=== PATIENT | female | born 1955 | race Caucasian/White ===

== ENCOUNTER 2023-05-19 21:03 | Inpatient (IN) | payer MEDICARE, SELFPAY ==
--- NOTE | ~2023-05-19 | FL_ITS ---
EXAMINATION: XR FLUOROSCOPY UPPER GI WITH AIR CLINICAL INFORMATION: Dysphagia, reflux COMPARISON: None TECHNIQUE: Fluoroscopic air contrast upper GI examination was performed utilizing standard techniques with thin and thick barium and effervescent granules. Numerous spot images were obtained. FINDINGS: Vagal stimulator incidentally noted. There are cholecystectomy clips present. Lateral cine images of the oropharynx and hypopharynx demonstrate premature spillage into the vallecula and pyriform sinuses with a delayed swallow mechanism. There is trace laryngeal penetration with thick barium. No tracheal penetration, glottic or subglottic aspiration identified. No nasopharyngeal reflux present. Hypopharyngeal structures appear normal without evidence of mass or diverticulum. There was no significant cricopharyngeal achalasia. Dual and single contrast images of the esophagus demonstrate patulous caliber, normal contour, and normal mucosal pattern. No evidence of stricture, mass, or ulcerations identified. Esophageal peristalsis is moderately disorganized. No evidence of hiatus hernia identified. No significant gastroesophageal reflux was seen during the course of the examination and on reflux views. Dual contrast and single contrast images of the stomach demonstrated a normal contour. Evaluation of the gastric mucosa is limited due to patient's inability and refusal to change body positions. The appears to be multiple areas of contrast pooling in the fundus and body the stomach that may represent small superficial aphthous ulcers. No obvious mass is present. Contrast freely passed into the gastric antrum and duodenal bulb without delay. Single and air-contrast images of the duodenal bulb demonstrate no abnormality. The duodenal sweep has a normal appearance, course, and mucosal fold appearance. The imaged proximal jejunum has a normal fold pattern and caliber. FLUOROSCOPY TIME: 2 minutes 11 seconds Number of Spot Images: 2 Number of Cine: 8 DOSE AREA PRODUCT: 1328 uGy-m2 (microgray-meter squared) FL/FL upper GI w Ba Swallow IMPRESSION: 1. Premature spillage into the vallecula and pyriform sinuses with delayed swallow mechanism. Ballooning of the hypopharynx. 2. Trace laryngeal penetration with thick barium. 3. Limited evaluation of the esophagus, however, peristalsis is disorganized. 4. Limited evaluation of the stomach. There appear to be multiple areas of contrast pooling in the fundus and body the stomach that may represent small superficial aphthous ulcers. Recommend correlation EGD. This procedure was performed by Carrillo Morillo PA-C, and supervised by Dr. Huston
[2023-05-19 21:25] VITALS: BP 123/57; PULSE 107; RESP 16; TEMP 36.3; O2SAT 95
[2023-05-19 22:00] VITALS: BMI 46.5
--- NOTE | 2023-05-19 23:41 | PC.NURSE ---
pt is hospital to hospital transfer from [facility]. on arrival pt has signed c-v pt has long standing psych hx and recently returned home from a rehab facility. pt had been at rehab for decreased mobility. pt states that she sought medical help at [facility] ed for she needed to have a lung,eye and dental transplant. pt states that she is suffering from sarcoidosis. pt is able to stand. unfortunately she is nonambulatory and states she is wheel chair bound. her affect is flat/withdrawn. she has delusions in regard to needing organ transplants. she is able to wiley purposefully. resp effort is regular unlabored. lungs cta. slightly tachycardic heart rate low 100s bpm. abdomen obese/soft. pt states has not has bm in 5 days but does not have constipation. incontinent of urine.
[2023-05-20 07:30] VITALS: BP 125/84; PULSE 90; RESP 16; TEMP 36.6; O2SAT 94
[2023-05-20 08:30] LABS: Creatinine Clr Calc Pharmacy 73.1; Estimated Glomerular Filt Rate > 60
[2023-05-20 08:33] LABS: Alanine Aminotransferase 12 U/L (0-31); Albumin Level 3.8 g/dL (3.5-5.0); Alkaline Phosphatase 112 U/L (39-117); Anion Gap 11 (12-20); Aspartate Amino Transferase 14 U/L (5-31); Bilirubin Total 0.3 mg/dL (0.0-1.0); Blood Urea Nitrogen 11 mg/dL (9-16); Calcium 9.2 mg/dL (8.4-10.2); Carbon Dioxide 23 mmol/L (22-29); Chloride 107 mmol/L (96-108); Cholesterol 149 mg/dL (<200); Creatinine Clr Calc Pharmacy 72.3; Estimated Glomerular Filt Rate > 60; Glucose Fasting 129 mg/dL (60-99); HDL Cholesterol 38 mg/dL (>40); LDL Cholesterol Calculated 78 mg/dL (<100); Potassium 4.1 mmol/L (3.3-5.1); Sodium 137 mmol/L (135-145); Total Protein 6.8 g/dL (6.5-8.0); Triglycerides 166 mg/dL (<150)
--- NOTE | 2023-05-20 09:10 | P.HPPS_ITS ---
[facility] Date of Service: 05/20/23 Chief Complaint: Schizophrenia Sources of Information: patient interviewed, chart reviewed and crisis/core team assessment reviewed HPI Subjective Notes: Macario Warning and Conditional Voluntary Narrative: The patient is a 67-year-old female , with a past history of schizophrenia. The patient was initially referred to another hospital since her reported exacerbation of psychotic symptoms elicited with paranoia, bizarre delusions and feelings that she is going to and needs to go to the hospital. Apparently the patient had a previous medical admission a few weeks ago, her medications were changed since she was sent to rehab for continuation of care. When she was brought back home he was extremely paranoid and delusional stating that she needs to get her lungs replaced and she was scared stating that she was going to . Her tried to calm her down but eventually he called 911 and she was rushed to the emergency room and assessed by crisis. She was transferring to this facility for psychiatric stabilization. On interview, the patient understood macario warning. She understood that she needed medical care and she was stating that she was feeling much better with some chronic back pain. She adamantly denies paranoia or feeling that she is going to get killed but she stated that she needs to have her back, lungs and replaced also she needs replacement of her eyes. The patient was able to contract for safety and she is willing to follow treatment in this facility. The patient was pleasant, cooperative and reported that the lidocaine patches help her in her back pain so we are ordering it now. We will try to gather more collateral information. Past Psychiatric History: According to the crisis assessment the patient has a lengthy history of schizophrenia and she was prior admissions into the hospital for decompensation. She was transfer with [facility] we will try to gather more information regarding prior treatments. Medical Evaluation Reviewed: Yes [facility] Medical History Neurostimulator device in situ Hypothyroidism Intellectual disability Schizoaffective disorder Dysphagia Type 2 diabetes mellitus History of pulmonary embolism Sarcoidosis (HFpEF) heart failure with preserved ejection fraction Epilepsy Family History: Denies Social History: The patient is , she has good social support provided by her . Substance History: Denies Trauma History: Refused to elaborate Diagnostics Vital Signs (24Hr): Vital Signs - 24 hr 05/19/23 21:25 Temperature 97.3 F Pulse Rate 107 H Respiratory Rate 16 Blood Pressure 123/57 L Pulse Oximetry 95 Oxygen Delivery Method Room Air BMI result Body Mass Index 46.5 Labs 05/20/23 07:52 Labs: Laboratory Results - last 48 hr 05/20/23 05/20/23 05/20/23 07:52 07:52 07:52 Sodium 137 Potassium 4.1 Chloride 107 Carbon Dioxide 23 Anion Gap 11 L BUN 11 Creatinine 0.84 0.83 Estim Creat Clear Calc 72.3 73.1 Estimated GFR > 60 Fasting Glucose Calcium Total Bilirubin AST ALT Alkaline Phosphatase Total Protein Albumin Triglycerides Cholesterol LDL Cholesterol, Calc HDL Cholesterol 05/20/23 07:52 Sodium Potassium Chloride Carbon Dioxide Anion Gap BUN Creatinine Estim Creat Clear Calc Estimated GFR > 60 Fasting Glucose 129 H Calcium 9.2 Total Bilirubin 0.3 AST 14 ALT 12 Alkaline Phosphatase 112 Total Protein 6.8 Albumin 3.8 Triglycerides 166 H Cholesterol 149 LDL Cholesterol, Calc 78 HDL Cholesterol 38 L Meds/Allergies Meds Home Medications ?Medication ?Instructions ?Recorded ?Confirmed ?Type clobazam 10 mg tablet 10 mg PO BID 05/19/23 05/19/23 History haloperidol 10 mg tablet 10 mg PO BID 05/19/23 05/19/23 History metformin 500 mg tablet,extended 500 mg PO DAILY 05/19/23 05/19/23 History release 24 hr risperidone 2 mg tablet 2 mg PO BID 05/19/23 05/19/23 History risperidone 3 mg tablet 3 mg PO BEDTIME 05/19/23 05/19/23 History sertraline 100 mg tablet 100 mg PO DAILY 05/19/23 05/19/23 History spironolactone 25 mg tablet 25 mg PO DAILY 05/19/23 05/19/23 History torsemide 20 mg tablet 60 mg PO 3XW 05/19/23 05/19/23 History Allergies Allergies Allergy/AdvReac Type Severity Reaction Status Date / Time ascorbic acid [Vitamin C] Allergy Unknown Unknown Verified 05/19/23 21:53 dexamethasone Allergy Unknown Verified 05/19/23 21:52 ibuprofen Allergy Unknown Verified 05/19/23 21:49 Penicillins Allergy Rash Verified 05/19/23 21:55 Mental Status Exam Mental Status Exam Patient Appearance: Appropriate (On hospital gowns) Patient Orientation: Person and Situation Level of Consciousness: Awake and Appropriate Patient Behavior: Guarded and Passive Mood Description: Withdrawn Affect Description: Constricted Patient Cognition Impaired: Yes Ability to Follow Directions: Good Speech Pattern: Clear Hallucinations: None Delusions: Present, Ideas of Reference and Bizarre Thought Process: Distracted and Slowed Thinking Thought Content: positive for [place] and positive for Poverty of Content Judgement: Poor Assessment & Plan Assessment & Plan (1) Schizophrenia: Status: Acute Code(s): F20.9 - Schizophrenia, unspecified Plan The patient is an elderly female with a past history of schizophrenia who recently had medication changes and she was referred from her home to the emergency room due to exacerbation of delusions and paranoia. The patient had been admitted in the hospital a few weeks ago and sent to rehab for continuation of care and after being discharged home she was severely psychotic. She was brought to the emergency room and started on Haldol. Plan 1. Gather collateral information. The patient is a very poor historian but she is able to verbalize her needs. 2. Continue with Haldol as prescribed. 3. 15 minutes checks since the patient is able to contract for safety. 4. The patient refused all her medications today but she was able to take a few medications for seizures with encouragement. Patient educated on: diagnosis Reason for continued inpatient stay Substantial Risk for: inability to function, rapid decompensation and med/psych decompensation Statement Statement: I have reviewed the history and physical and performed a pertinent examination on my patient. No changes have occurred unless specified. If the History and Physical was not performed prior to admission, the Hospitalist's service will be consulted for completing the admission physical. Time Spent With Patient Time: Total time managing care of this patient today __45__ minutes.
--- NOTE | 2023-05-20 09:13 | HO.PM.IMCN ---
History of Present Illness Data of Consult Service Date: 05/20/23 Requesting physician: Kelly Zimmerman Primary Care Provider: Trae SPENCER Reason for consult: admission H&P 67-year-old female with history of PE no longer on anticoagulation, type 2 diabetes, dysphagia, schizophrenia, epilepsy, neurostimulator in place, intellectual disability, heart failure preserved ejection fraction, hypothyroidism, and sarcoidosis admitted to Geriatric Psychiatry from [facility] with consult placed to hospitalist service for medical H and P. The patient is reporting that she is having her lungs, I, and feet transplanted. Very limited historian but denies any complaints. While on the unit, patient observed to be eating breakfast and coughing while eating. Currently on a regular diet. She reports her last seizure was 9 years ago. While [facility], hematology studies unremarkable, renal function baseline, lytes normal. UA negative. Unclear what medications patient is currently taking. States she is only taking haldol and zonegran however called pharamacy and reports zonegran discontinued in January. Review of Systems Review of Systems: General: No fevers, malaise, unintentional weight loss HEENT: No blurred vision, diplopia. No sore throat, nasal congestion, rhinorrhea, sinus pain, ear pain Cardiovascular: No chest pain, palpitations, or leg edema Respiratory: No shortness of breath, wheezing, cough GI: No abdominal pain, nausea, vomiting, diarrhea, constipation, melena, hematochezia : No dysuria, hematuria, increased urinary frequency, decreased urinary output MSK: No myalgia, back pain Neuro: No headaches, weakness, paresthesias Skin: No rashes or lesions [facility] Medical History (Updated 05/20/23 @ 09:34 by ROGELIO Shah) Neurostimulator device in situ Hypothyroidism Intellectual disability Schizoaffective disorder Dysphagia Type 2 diabetes mellitus History of pulmonary embolism Sarcoidosis (HFpEF) heart failure with preserved ejection fraction Epilepsy Social History Household Members: Spouse Housing: House Do you presently have visiting nurse or other home services: Yes Patient Tobacco Use Status: Never used Tobacco e-Cigarette/Vaping Use: Never Used Use of substances other than those prescribed or required for medical reasons: No Currently Displaying Signs/Symptoms of Drug Intoxication Withdrawal: No Any prior treatment program specific to substance use: No Have you been hit, kicked, punched, or otherwise hurt by someone within the past year? If so, by whom?: No Do you feel safe in your current relationship?: No Is there a partner from a previous relationship who is making you feel unsafe now?: No Are you made to feel afraid or neglected: No Advance Directives: No Advance Directives Information Provided: No Do you have thoughts of harming others: None Do you have a plan to hurt others: No Plan Recently lost weight without trying: Unsure How much weight loss: Unsure Nutrition Risks: No Nutritional Risk Patient : No : No Poor oral hygiene: No Meds Allergies Allergy/AdvReac Type Severity Reaction Status Date / Time ascorbic acid [Vitamin C] Allergy Unknown Unknown Verified 05/19/23 21:53 dexamethasone Allergy Unknown Verified 05/19/23 21:52 ibuprofen Allergy Unknown Verified 05/19/23 21:49 Penicillins Allergy Rash Verified 05/19/23 21:55 Active Medications: Current Medications Acetaminophen (Acetaminophen 325 Mg Tablet) 650 mg PO Q6H PRN PRN Reason: Headache/Pain Mild Scale (1-3) Al Hydroxide/Mg Hydroxide (Magnesium Hydrox/Alum Hydrox 30 Ml Oral.Susp) 30 ml PO Q6H PRN PRN Reason: Heartburn/Nausea Clobazam (Clobazam 10 Mg Tablet) 10 mg PO BID [facility] Last Admin: 05/20/23 08:37 Dose: Not Given Haloperidol (Haloperidol 5 Mg Tablet) 10 mg PO BID [facility] Last Admin: 05/20/23 08:38 Dose: Not Given Hydroxyzine HCl (Hydroxyzine Hcl 25 Mg Tablet) 25 mg PO Q6H PRN PRN Reason: Anxiety Magnesium Hydroxide (Milk Of Magnesia 30 Ml Oral.Susp) 30 ml PO DAILY PRN PRN Reason: Constipation Metformin HCl (Metformin Hcl Er 500 Mg Tab.Er.24h) 500 mg PO DAILY@0800 [facility] Last Admin: 05/20/23 08:37 Dose: Not Given Sertraline HCl (Sertraline Hcl 100 Mg Tablet) 100 mg PO DAILY [facility] Last Admin: 05/20/23 08:38 Dose: Not Given Spironolactone (Spironolactone 25 Mg Tablet) 25 mg PO DAILY [facility]; Protocol Last Admin: 05/20/23 08:38 Dose: Not Given Torsemide (Torsemide 20 Mg Tablet) 60 mg PO MoWeFr [facility]; Protocol Last Admin: 05/20/23 08:37 Dose: Not Given Trazodone HCl (Trazodone Hcl 50 Mg Tablet) 50 mg PO BEDTIME MRX1 PRN PRN Reason: Insomnia Home Medications ?Medication ?Instructions ?Recorded ?Confirmed ?Last Taken ?Type clobazam 10 mg tablet 10 mg PO BID 05/19/23 05/19/23 Unknown History haloperidol 10 mg tablet 10 mg PO BID 05/19/23 05/19/23 Unknown History metformin 500 mg tablet,extended 500 mg PO DAILY 05/19/23 05/19/23 Unknown History release 24 hr risperidone 2 mg tablet 2 mg PO BID 05/19/23 05/19/23 Unknown History risperidone 3 mg tablet 3 mg PO BEDTIME 05/19/23 05/19/23 Unknown History sertraline 100 mg tablet 100 mg PO DAILY 05/19/23 05/19/23 Unknown History spironolactone 25 mg tablet 25 mg PO DAILY 05/19/23 05/19/23 Unknown History torsemide 20 mg tablet 60 mg PO 3XW 05/19/23 05/19/23 Unknown History Physical Exam Vital Signs and Narrative: Vital Signs: Last Vital Signs Temp 97.3 F 05/19/23 21:25 Pulse 107 H 05/19/23 21:25 Resp 16 05/19/23 21:25 BP 123/57 L 05/19/23 21:25 Pulse Ox 95 05/19/23 21:25 O2 Del Method Room Air 05/19/23 21:25 BMI result Body Mass Index 46.5 Constitutional - Awake and Alert, No apparent distress Eyes - PERRLA, EOMI Cardiovascular - S1S2, RRR, No edema Respiratory - Normal lung expansion, Normal respiratory effort, No respiratory distress, CTA bilaterally Gastrointestinal - NT / ND; +BS; No rebound or guarding Extremities - no calf tenderness bilaterally, no swelling Musculoskeletal - Normal inspection, normal ROM Skin - Warm/Dry Neurological - Alert & oriented x3, CN II-XII in tact, 5/5 strength BUE and BLE Psychological - Appropriate affect Results Labs 05/20/23 07:52 Labs: Laboratory Results - last 24 hr 05/20/23 05/20/23 05/20/23 07:52 07:52 07:52 Anion Gap 11 L Estim Creat Clear Calc 72.3 73.1 Estimated GFR > 60 > 60 Fasting Glucose 129 H Calcium 9.2 Total Bilirubin 0.3 AST 14 ALT 12 Alkaline Phosphatase 112 Total Protein 6.8 Albumin 3.8 Triglycerides 166 H Cholesterol 149 LDL Cholesterol, Calc 78 HDL Cholesterol 38 L Assessment and Plan (1) Routine medical exam: Status: Acute Plan 67-year-old female with history of PE no longer on anticoagulation, type 2 diabetes, dysphagia, schizophrenia, epilepsy, neurostimulator in place, intellectual disability, heart failure preserved ejection fraction, hypothyroidism, and sarcoidosis admitted to Geriatric Psychiatry from [facility] with consult placed to hospitalist service for medical H and P. It is unclear what medications patient has been compliant with. Call placed to patient's pharmacy who reports Zonegran for patient's epilepsy was last filled in January but appears to be an activated. Also has not picked up levothyroxine since October. Would recommend reaching out to family to confirm home med list to ensure patient is not missing doses of needed medications. # mood disorder/psychosis -plan for Psychiatry # [id number] type 2 diabetes-without hyperglycemia -recommend checking fasting glucose daily -hemoglobin A1c pending -continue metformin -POC glucose, diabetic diet if patient agreeable # epilepsy -patient reports taking sonogram. Please confirm dosing with patient family and resume medication as appropriate -last seizure 9 years ago # hypothyroidism -reportedly has not filled levothyroxine 75 mcg since October. Check TSH with reflex T4 # heart failure preserved ejection fraction -euvolemic appearing on exam -continue spironolactone and torsemide # sarcoidosis -not on steroids # history of PE -no longer on anticoagulation # dysphagia -patient witnessed to be coughing during breakfast, diet changed to chopped pending [employer] evaluation which is ordered Thank you for allowing me to participate in this consult. Signing off at this time. Please do not hesitate to call for further questions.
[2023-05-20 10:29] LABS: TSH reflex Free T4 6.93 uIU/mL (0.32-4.0)
[2023-05-20 11:22] LABS: Free T4 (Free Thyroxine) 0.78 ng/dL (0.71-1.85)
[2023-05-20] MEDS: Zonisamide 100 MG CAPSULE 200 MG PO ×2 (15:12→20:09)
--- NOTE | 2023-05-20 17:10 | MHC.SL.SWA ---
Risk of Aspiration Due to: Neurological Condition Reduced Cognition Dysphasia Diet Status: NO CHANGE, MANAGER MINING to follow Liquid Consistency and Strategies for Safe Swallow: Liquid Intake Recommendation: Thin Liquid Intake Strategies: Small Sips Solid Food Consistency: Dietary Recommendations: Chopped/Advanced (NDD3) Additional Modifications to Solid Foods: Moisten food in sauce/gravy Oral Medication Intake: Whole with Puree/liquid Please contact the pharmacy regarding appropriate crushable or liquid drug formulations that are available whenever modified delivery is recommended. Compensatory Strategies and Precautions to be Taken for Safe Swallow: Sitting Upright (90 deg) Small Bites and Sips Alternate Liquids/Solids Rate of Ingestion Change Avoid Specific Foods Supervision While Eating and Drinking for Safe Swallow: Total Supervision (1:1) Foods to Avoid: Avoid dry and tough to chew foods Swallowing Recommended Treatments: Compens. Strategy Educat. Recommendation for Speech: Inpatient Speech Therapy Comment: Recommend patient continue w/ chopped/advanced solids (NDD3) and thin liquids. Recommend pills whole w/ liquid/puree. Recommend supervision during meals. RN notified on floor. MANAGER MINING to continue to follow. Braid Pattern Setter Clinican/Clinical Fellow: No Supervisory Statement: I have reviewed and agree with the student/clinical fellow's documentation: Speech Language Pathologist: Pili Field M.A., [facility]-MANAGER MINING
[2023-05-20 18:00] VITALS: BP 165/70; PULSE 93; RESP 18; TEMP 36.4; O2SAT 97
[2023-05-20] MEDS: Lidocaine 4 % Patch ADH..PATCH 1 PATCH TRANSDERMA (18:19)
[2023-05-20] MEDS: Acetaminophen 325 MG TABLET 650 MG PO (20:10)
[2023-05-21] MEDS: Acetaminophen 325 MG TABLET 650 MG PO ×2 (03:40→10:03)
[2023-05-21 07:00] VITALS: BMI 45.7
[2023-05-21] MEDS: Zonisamide 100 MG CAPSULE 200 MG PO ×3 (09:14→21:00)
--- NOTE | 2023-05-21 15:17 | HO.PSYCHPN ---
Subjective Subjective Date of Service: 05/21/23 Reason For Visit: Schizophrenia Subjective Notes: Conditional Voluntary Interim History: The nursing staff reported the patient has refused her Haldol and other medications. According to the chart, her is her legal guardian and we will try to contact him soon. On interview the patient reports that she only takes antiseizure medication she has refused to take any medications. She looks internally preoccupied with thought blocking. Mental Status Exam Mental Status Exam Patient Appearance: Unkempt Patient Orientation: Person Level of Consciousness: Awake Patient Behavior: Guarded and Passive Mood Description: Withdrawn Affect Description: Blunted Patient Cognition Impaired: Yes Ability to Follow Directions: Good Speech Pattern: Clear Hallucinations: None Delusions: Paranoid Ideation and Ideas of Reference Thought Process: Distracted and Slowed Thinking Thought Content: positive for Thought Blocking Judgement: Poor Diagnostics Vital Signs (24Hr): Vital Signs - 24 hr 05/20/23 18:00 05/21/23 09:11 Temperature 97.5 F Pulse Rate 93 Respiratory Rate 18 Blood Pressure 165/70 H Pulse Oximetry 97 Oxygen Delivery Method Room Air Room Air BMI result Body Mass Index 45.7 Labs 05/20/23 07:52 Labs: Laboratory Results - last 48 hr 05/20/23 05/20/23 05/20/23 07:52 07:52 07:52 Sodium 137 Potassium 4.1 Chloride 107 Carbon Dioxide 23 Anion Gap 11 L BUN 11 Creatinine 0.84 0.83 Estim Creat Clear Calc 72.3 73.1 Estimated GFR > 60 Fasting Glucose Calcium Total Bilirubin AST ALT Alkaline Phosphatase Total Protein Albumin Triglycerides Cholesterol LDL Cholesterol, Calc HDL Cholesterol TSH Free T4 05/20/23 07:52 Sodium Potassium Chloride Carbon Dioxide Anion Gap BUN Creatinine Estim Creat Clear Calc Estimated GFR > 60 Fasting Glucose 129 H Calcium 9.2 Total Bilirubin 0.3 AST 14 ALT 12 Alkaline Phosphatase 112 Total Protein 6.8 Albumin 3.8 Triglycerides 166 H Cholesterol 149 LDL Cholesterol, Calc 78 HDL Cholesterol 38 L TSH 6.93 H Free T4 0.78 Medications Medications Current Medications Acetaminophen (Acetaminophen 325 Mg Tablet) 650 mg PO Q6H PRN PRN Reason: Headache/Pain Mild Scale (1-3) Last Admin: 05/21/23 10:03 Dose: 650 mg Al Hydroxide/Mg Hydroxide (Magnesium Hydrox/Alum Hydrox 30 Ml Oral.Susp) 30 ml PO Q6H PRN PRN Reason: Heartburn/Nausea Clobazam (Clobazam 10 Mg Tablet) 10 mg PO BID [facility] Last Admin: 05/21/23 09:16 Dose: Not Given Haloperidol (Haloperidol 5 Mg Tablet) 10 mg PO BID [facility] Last Admin: 05/21/23 09:16 Dose: Not Given Hydroxyzine HCl (Hydroxyzine Hcl 25 Mg Tablet) 25 mg PO Q6H PRN PRN Reason: Anxiety Levothyroxine Sodium (Levothyroxine Sodium 75 Mcg Tablet) 75 mcg PO DAILY@0600 [facility] Last Admin: 05/21/23 06:32 Dose: Not Given Lidocaine (Lidocaine 4 % Patch Adh..Patch) 1 patch TRANSDERMA DAILY [facility]; Protocol Magnesium Hydroxide (Milk Of Magnesia 30 Ml Oral.Susp) 30 ml PO DAILY PRN PRN Reason: Constipation Metformin HCl (Metformin Hcl Er 500 Mg Tab.Er.24h) 500 mg PO DAILY@0800 [facility] Last Admin: 05/21/23 09:15 Dose: Not Given Sertraline HCl (Sertraline Hcl 100 Mg Tablet) 100 mg PO DAILY [facility] Last Admin: 05/21/23 09:16 Dose: Not Given Spironolactone (Spironolactone 25 Mg Tablet) 25 mg PO DAILY [facility]; Protocol Last Admin: 05/21/23 09:16 Dose: Not Given Torsemide (Torsemide 20 Mg Tablet) 60 mg PO MoWeFr [facility]; Protocol Last Admin: 05/20/23 08:37 Dose: Not Given Trazodone HCl (Trazodone Hcl 50 Mg Tablet) 50 mg PO BEDTIME MRX1 PRN PRN Reason: Insomnia Zonisamide (Zonisamide 100 Mg Capsule) 200 mg PO TID [facility] Last Admin: 05/21/23 15:03 Dose: 200 mg Allergies Allergies Allergy/AdvReac Type Severity Reaction Status Date / Time ascorbic acid [Vitamin C] Allergy Unknown Unknown Verified 05/19/23 21:53 dexamethasone Allergy Unknown Verified 05/19/23 21:52 ibuprofen Allergy Unknown Verified 05/19/23 21:49 Penicillins Allergy Rash Verified 05/19/23 21:55 Assessment & Plan Assessment & Plan (1) Schizophrenia: Status: Acute Code(s): F20.9 - Schizophrenia, unspecified Plan The patient is an elderly female with a past history of schizophrenia who recently had medication changes and she was referred from her home to the emergency room due to exacerbation of delusions and paranoia. The patient had been admitted in the hospital a few weeks ago and sent to rehab for continuation of care and after being discharged home she was severely psychotic. She was brought to the emergency room and started on Haldol. Plan 1. Gather collateral information. The patient is a very poor historian but she is able to verbalize her needs. 2. Continue with Haldol as prescribed. 3. 15 minutes checks since the patient is able to contract for safety. 4. The patient refused all her medications today but she was able to take a few medications for seizures with encouragement. Reason for continued inpatient stay Substantial Risk for: inability to function, rapid decompensation and med/psych decompensation Time Spent With Patient Time: Total time managing care of this patient today __20__ minutes.
--- NOTE | 2023-05-21 16:53 | MHC.SL.SWA ---
Speech Pathologist Impression: Risk of Aspiration Due to: Neurological Condition Reduced Cognition Dysphasia Diet Status: Recommend continue on Chopped/Advanced with thin liquids, pills whole with liquid. D/c Speech/Language/Dysphagia treatment. Liquid Consistency and Strategies for Safe Swallow: Liquid Intake Recommendation: Thin Liquid Intake Strategies: Small Sips Solid Food Consistency: Dietary Recommendations: Chopped/Advanced (NDD3) Additional Modifications to Solid Foods: Moisten food in sauce/gravy Oral Medication Intake: Whole with Puree Please contact the pharmacy regarding appropriate crushable or liquid drug formulations that are available whenever modified delivery is recommended. Compensatory Strategies and Precautions to be Taken for Safe Swallow: Sitting Upright (90 deg) Liquids from Cup Small Bites and Sips Rate of Ingestion Change Supervision While Eating and Drinking for Safe Swallow: Intermittent Supervision Foods to Avoid: Avoid dry and tough to chew foods Swallowing Recommended Treatments: Compens. Strategy Educat. Recommendation for Speech: Inpatient Speech Therapy Comment: Patient was observed at dinner this evening, with a tray of chopped/advanced foods and thin liquids. Patient is able to independently feed self, and at this observations was taking fork full bites of chopped pasta and sauces, orally managing this consistency well, and producing a timely swallow. Patient periodically between bites of food was noted to grind teeth. On taking sips of liquid from cup with sippy lid, patient again took fairly large sips, but orally managed the bolus well and produced a timely swallow with no clinical signs of aspiration. Patient noted by nursing staff previously to eat quickly. At this observation, patient appeared intent upon her meal, but was taking her food and drink at a reasonable pace with no clinical signs of aspiration. Current diet of Chopped Advanced with thin liquids appears to be the safest and least restrictive diet for this patient at this time. Recommend continue on this diet, with no further [facility] T[employer]ER service needed at this time. Please re-contact if any additional concerns arise. Frequency/Duration: Date Range for Service Req: Timeline to reassess: Computer Processing Scheduler Clinican/Clinical Fellow: No Supervisory Statement: I have reviewed and agree with the student/clinical fellow's documentation: N/A Speech Language Pathologist: Patricia Ko M.A., [facility]
[2023-05-21 20:58] VITALS: BP 127/55; PULSE 101; RESP 18; TEMP 36; O2SAT 96
[2023-05-21] MEDS: Milk of Magnesia 30 ML ORAL.SUSP PO (21:10)
[2023-05-22 08:00] VITALS: BP 133/70; PULSE 100; RESP 18; TEMP 36.8; O2SAT 95
[2023-05-22] MEDS: Zonisamide 100 MG CAPSULE 200 MG PO ×3 (08:08→20:29)
[2023-05-22] MEDS: Levothyroxine Sodium 75 MCG TABLET PO (08:08)
[2023-05-22] MEDS: Lidocaine 4 % Patch ADH..PATCH 1 PATCH TRANSDERMA (08:09)
--- NOTE | 2023-05-22 13:13 | P.PNPSI_ITS ---
Subjective Subjective Date of Service: 05/22/23 Reason For Visit: Schizophrenia Subjective Notes: Sommers Order and Conditional Voluntary Healthcare Proxy: Yes Guardianship: Yes Interim History: The nursing staff reported the patient had been refusing her antipsychotics only taking antiseizure medications. She was seen flat eating in her bed internally preoccupied, responding to internal stimuli. Today the foster care social worker was able to contact her who is the guardian and the patient has a treatment over objection court order and today we got a copy of that. On interview the patient reported that she wants to go back home but I explained her that she has not taking her medications. I explained her that she has a court order and we are going to put backup medications if she refuses. Mental Status Exam Mental Status Exam Patient Appearance: Disheveled Patient Orientation: Person Level of Consciousness: Disoriented and Obtunded Patient Behavior: Guarded and Passive Mood Description: Withdrawn Affect Description: Blunted Patient Cognition Impaired: Yes Ability to Follow Directions: Poor Speech Pattern: Impoverished and Monotone Hallucinations: None Delusions: Paranoid Ideation and Ideas of Reference Thought Process: Illogical and Slowed Thinking Thought Content: positive for [place], positive for Poverty of Content and positive for Thought Blocking Judgement: Poor Diagnostics Vital Signs (24Hr): Vital Signs - 24 hr 05/21/23 20:58 05/22/23 08:00 Temperature 96.8 F 98.2 F Pulse Rate 101 H 100 Respiratory Rate 18 18 Blood Pressure 127/55 L 133/70 Pulse Oximetry 96 95 Oxygen Delivery Method Room Air Room Air BMI result Body Mass Index 45.7 Labs 05/20/23 07:52 Medications Medications Current Medications Acetaminophen (Acetaminophen 325 Mg Tablet) 650 mg PO Q6H PRN PRN Reason: Headache/Pain Mild Scale (1-3) Last Admin: 05/21/23 10:03 Dose: 650 mg Al Hydroxide/Mg Hydroxide (Magnesium Hydrox/Alum Hydrox 30 Ml Oral.Susp) 30 ml PO Q6H PRN PRN Reason: Heartburn/Nausea Clobazam (Clobazam 10 Mg Tablet) 10 mg PO BID [facility] BEDS AT [facility] Last Admin: 05/22/23 08:11 Dose: Not Given Haloperidol (Haloperidol 5 Mg Tablet) 10 mg PO BID [facility]CLUDE 234 BEDS AT THE [facility] Last Admin: 05/22/23 08:10 Dose: Not Given Haloperidol Lactate (Haloperidol Lactate 5 Mg/Ml Vial) 10 mg IM BID PRN PRN Reason: refusal of PO Hydroxyzine HCl (Hydroxyzine Hcl 25 Mg Tablet) 25 mg PO Q6H PRN PRN Reason: Anxiety Levothyroxine Sodium (Levothyroxine Sodium 75 Mcg Tablet) 75 mcg PO DAILY@0600 [facility] 234 BEDS AT THE [facility] Last Admin: 05/22/23 08:08 Dose: 75 mcg Lidocaine (Lidocaine 4 % Patch Adh..Patch) 1 patch TRANSDERMA DAILY [facility]CLUDE 234 BEDS AT THE [facility]; Protocol Last Admin: 05/22/23 08:09 Dose: 1 patch Magnesium Hydroxide (Milk Of Magnesia 30 Ml Oral.Susp) 30 ml PO DAILY PRN PRN Reason: Constipation Last Admin: 05/21/23 21:10 Dose: 30 ml Metformin HCl (Metformin Hcl Er 500 Mg Tab.Er.24h) 500 mg PO DAILY@0800 [facility]S [facility]CLUDE 234 BEDS AT THE [facility] Last Admin: 05/22/23 08:13 Dose: Not Given Sertraline HCl (Sertraline Hcl 100 Mg Tablet) 100 mg PO DAILY [facility]S [facility]CLUDE 234 BEDS AT THE [facility] Last Admin: 05/22/23 08:12 Dose: Not Given Spironolactone (Spironolactone 25 Mg Tablet) 25 mg PO DAILY [facility]S [facility]CLUDE 234 BEDS AT THE [facility]; Protocol Last Admin: 05/22/23 08:12 Dose: Not Given Torsemide (Torsemide 20 Mg Tablet) 60 mg PO MoWeFr COUNTS INCLUDE 234 BEDS AT THE [facility]; Protocol Last Admin: 05/22/23 08:12 Dose: Not Given Trazodone HCl (Trazodone Hcl 50 Mg Tablet) 50 mg PO BEDTIME MRX1 PRN PRN Reason: Insomnia Zonisamide (Zonisamide 100 Mg Capsule) 200 mg PO TID [facility]CLUDE 234 BEDS AT THE [facility] Last Admin: 05/22/23 08:08 Dose: 200 mg Allergies Allergies Allergy/AdvReac Type Severity Reaction Status Date / Time ascorbic acid [Vitamin C] Allergy Unknown Unknown Verified 05/19/23 21:53 dexamethasone Allergy Unknown Verified 05/19/23 21:52 ibuprofen Allergy Unknown Verified 05/19/23 21:49 Penicillins Allergy Rash Verified 05/19/23 21:55 Assessment & Plan Assessment & Plan (1) Schizophrenia: Status: Acute Code(s): F20.9 - Schizophrenia, unspecified Plan The patient is an elderly female with a past history of schizophrenia who recently had medication changes and she was referred from her home to the emergency room due to exacerbation of delusions and paranoia. The patient had been admitted in the hospital a few weeks ago and sent to rehab for continuation of care and after being discharged home she was severely psychotic. She was brought to the emergency room and started on Haldol. Plan 1. Gather collateral information. The patient is a very poor historian but she is able to verbalize her needs. 2. Continue with Haldol as prescribed. 3. 15 minutes checks since the patient is able to contract for safety. 4. The patient refused all her medications today but she was able to take a few medications for seizures with encouragement. 5. Haldol with backup IM as per court order was ordered today. Reason for continued inpatient stay Substantial Risk for: inability to function, rapid decompensation and med/psych decompensation Time Spent With Patient Time: Total time managing care of this patient today __20__ minutes.
[2023-05-22 18:00] VITALS: BP 142/69; PULSE 108; RESP 18; TEMP 36.1; O2SAT 98
[2023-05-22 21:00] VITALS: RESP 16
[2023-05-23] MEDS: Acetaminophen 325 MG TABLET 650 MG PO (03:26)
[2023-05-23 08:00] VITALS: BP 136/66; PULSE 99; RESP 18; TEMP 36.6; O2SAT 96
[2023-05-23] MEDS: Zonisamide 100 MG CAPSULE 200 MG PO ×3 (08:52→20:16)
[2023-05-23] MEDS: HaloperidoL 5 MG TABLET 10 MG PO (09:44)
[2023-05-23] MEDS: Lidocaine 4 % Patch ADH..PATCH 1 PATCH TRANSDERMA (09:51)
--- NOTE | 2023-05-23 11:41 | P.PNPSI_ITS ---
Subjective Subjective Date of Service: 05/23/23 Reason For Visit: Schizophrenia Interim History: Met with patient. Discussed with Nursing. Has been refusing most medications. Morgan's order in place. Educated pt ref lee order. Sleeping well. No SI or HI evident. Medication Compliance: Intermittent Side effects from medications: No Attending Groups: Intermittent Review of Systems Acute medical concerns: No Mental Status Exam Mental Status Exam Patient Appearance: Disheveled Patient Orientation: Person Level of Consciousness: Disoriented and Obtunded Patient Behavior: Guarded and Passive Mood Description: Withdrawn Affect Description: Blunted Patient Cognition Impaired: Yes Ability to Follow Directions: Poor Speech Pattern: Impoverished and Monotone Hallucinations: None Delusions: Paranoid Ideation and Ideas of Reference Thought Process: Illogical and Slowed Thinking Thought Content: positive for [place], positive for Poverty of Content and positive for Thought Blocking Judgement: Poor Diagnostics Vital Signs (24Hr): Vital Signs - 24 hr 05/22/23 18:00 05/22/23 21:00 Temperature 96.9 F Pulse Rate 108 H Respiratory Rate 18 16 Blood Pressure 142/69 H Pulse Oximetry 18 L Oxygen Delivery Method Room Air BMI result Body Mass Index 45.7 Labs 05/20/23 07:52 Medications Medications Current Medications Acetaminophen (Acetaminophen 325 Mg Tablet) 650 mg PO Q6H PRN PRN Reason: Headache/Pain Mild Scale (1-3) Last Admin: 05/23/23 03:26 Dose: 650 mg Clobazam (Clobazam 10 Mg Tablet) 10 mg PO BID [facility] Last Admin: 05/23/23 09:16 Dose: Not Given Haloperidol (Haloperidol 5 Mg Tablet) 10 mg PO BID [facility] Last Admin: 05/23/23 09:44 Dose: 10 mg Haloperidol Lactate (Haloperidol Lactate 5 Mg/Ml Vial) 10 mg IM BID PRN PRN Reason: refusal of PO Hydroxyzine HCl (Hydroxyzine Hcl 25 Mg Tablet) 25 mg PO Q6H PRN PRN Reason: Anxiety Levothyroxine Sodium (Levothyroxine Sodium 75 Mcg Tablet) 75 mcg PO DAILY@0600 [facility] Last Admin: 05/22/23 08:08 Dose: 75 mcg Lidocaine (Lidocaine 4 % Patch Adh..Patch) 1 patch TRANSDERMA DAILY [facility]; Protocol Last Admin: 05/23/23 09:51 Dose: 1 patch Magnesium Hydroxide (Milk Of Magnesia 30 Ml Oral.Susp) 30 ml PO DAILY PRN PRN Reason: Constipation Last Admin: 05/21/23 21:10 Dose: 30 ml Metformin HCl (Metformin Hcl Er 500 Mg Tab.Er.24h) 500 mg PO DAILY@0800 [facility] Last Admin: 05/23/23 09:15 Dose: Not Given Sertraline HCl (Sertraline Hcl 100 Mg Tablet) 100 mg PO DAILY [facility] Last Admin: 05/23/23 08:56 Dose: Not Given Spironolactone (Spironolactone 25 Mg Tablet) 25 mg PO DAILY [facility]; Protocol Last Admin: 05/23/23 08:56 Dose: Not Given Torsemide (Torsemide 20 Mg Tablet) 60 mg PO MoWeFr [facility]; Protocol Last Admin: 05/22/23 08:12 Dose: Not Given Trazodone HCl (Trazodone Hcl 50 Mg Tablet) 50 mg PO BEDTIME MRX1 PRN PRN Reason: Insomnia Zonisamide (Zonisamide 100 Mg Capsule) 200 mg PO TID [facility] Last Admin: 05/23/23 08:52 Dose: 200 mg Allergies Allergies Allergy/AdvReac Type Severity Reaction Status Date / Time ascorbic acid [Vitamin C] Allergy Unknown Unknown Verified 05/19/23 21:53 dexamethasone Allergy Unknown Verified 05/19/23 21:52 ibuprofen Allergy Unknown Verified 05/19/23 21:49 Penicillins Allergy Rash Verified 05/19/23 21:55 Assessment & Plan Assessment & Plan (1) Schizophrenia: Status: Acute Code(s): F20.9 - Schizophrenia, unspecified Plan The patient is an elderly female with a past history of schizophrenia who recently had medication changes and she was referred from her home to the emergency room due to exacerbation of delusions and paranoia. The patient had been admitted in the hospital a few weeks ago and sent to rehab for continuation of care and after being discharged home she was severely psychotic. She was brought to the emergency room and started on Haldol. Plan 1. Gather collateral information. The patient is a very poor historian but she is able to verbalize her needs. 2. Continue with Haldol as prescribed. 3. 15 minutes checks since the patient is able to contract for safety. 4. The patient refused all her medications today but she was able to take a few medications for seizures with encouragement. 5. Haldol with backup IM as per court order was ordered today. 05/22: no changes- give lee order medications. Pt educated on process for same. Reason for continued inpatient stay Substantial Risk for: inability to function Time Spent With Patient Time: Total time managing care of this patient today ____ minutes.
[2023-05-23 13:30] VITALS: BP 145/65; PULSE 94; RESP 96; TEMP 36.4; O2SAT 96
[2023-05-23 18:00] VITALS: BP 142/63; PULSE 105; RESP 16; TEMP 36.4; O2SAT 95
[2023-05-23] MEDS: Haloperidol Lactate 5 MG/ML VIAL 10 MG IM (20:20)
--- NOTE | 2023-05-23 21:39 | PC.NURSE ---
2040- pt seated in the milieu. despite great explanation of natalie order, she is refusing to take po haldol. she is grinding her teeth and anxious. she states that since taking the haldol earlier today she feels worst. pt states that she will take the IM haldol vs po. right arm placed in flexed position and haldol administered into right deltoid. pt was compliant for the injection. she was offered privacy for the injection but declined.
[2023-05-23 21:55] VITALS: BP 120/71; PULSE 134; RESP 16; TEMP 36.5; O2SAT 98
[2023-05-23 22:00] VITALS: BP 130/64; PULSE 117; RESP 16; O2SAT 97
[2023-05-23] MEDS: Benztropine Mesylate 1 MG TABLET 2 MG PO (22:20)
--- NOTE | 2023-05-23 22:38 | PC.NURSE ---
at 2155 a CELLAR PUMPER was implemented for concerns of a possible EPS REACTION- please note the following which was imparted to responding CELLAR PUMPER 1. bed exit alarm sounded and responding staff found pt in a seated position sitting on her sheet and blanket 2. pt is extremely anxious and states she feels like her airway is closing off 3. vital signs 97.7 p 132 bpm rr 24 sa02 98% b/p 120/71 4. concerns for possible EPS reaction r/t haldol 10 mg po earlier in the day and haldol 10 mg im approximately 90 minutes ago per lee order. 5. pt returned to bed with 2 assists and placed in high fowlers position. dr pizano contacted as per dr wilson and the previous documentation reviewed with dr pizano- plan 1. cogentin 2 mg po now then start cogentin 1 mg po bid. please note possible severe reaction of zonegram and cogentin discussed with dr pizano and he wishes to proceed with [place].
[2023-05-23 23:12] VITALS: BP 146/65; PULSE 94; RESP 16; TEMP 36.4; O2SAT 96
[2023-05-24] MEDS: traZODone HCL 50 MG TABLET PO ×2 (01:30→20:09)
[2023-05-24] MEDS: hydrOXYzine HCL 25 MG TABLET PO (01:30)
[2023-05-24 02:46] LABS: Glucose, Whole Blood 185 mg/dL (60-115)
[2023-05-24] MEDS: LORazepam 1 MG TABLET PO (02:56)
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
[2023-05-24 08:10] VITALS: BP 130/59; PULSE 82; RESP 16; TEMP 36.2; O2SAT 97
[2023-05-24 08:42] LABS: Glucose, Whole Blood 117 mg/dL (60-115)
[2023-05-24] MEDS: Acetaminophen 325 MG TABLET 650 MG PO (08:45)
[2023-05-24] MEDS: Zonisamide 100 MG CAPSULE 200 MG PO ×3 (08:46→20:09)
[2023-05-24] MEDS: Benztropine Mesylate 1 MG TABLET PO (08:47)
[2023-05-24] MEDS: metFORMIN HCl ER 500 MG TAB.ER.24H PO (08:47)
[2023-05-24] MEDS: HaloperidoL 5 MG TABLET 10 MG PO (08:48)
[2023-05-24] MEDS: cloBAZam 10 MG TABLET PO ×2 (08:48→20:09)
[2023-05-24] MEDS: Sertraline HCL 100 MG TABLET PO (08:48)
[2023-05-24] MEDS: Spironolactone 25 MG TABLET PO (08:48)
[2023-05-24] MEDS: Lidocaine 4 % Patch ADH..PATCH 1 PATCH TRANSDERMA (08:49)
[2023-05-24] MEDS: Levothyroxine Sodium 75 MCG TABLET PO (08:49)
--- NOTE | 2023-05-24 09:55 | P.PNPSI_ITS ---
Subjective Subjective Date of Service: 05/24/23 Reason For Visit: Schizophrenia Subjective Notes: Conditional Voluntary Guardianship: Yes Interim History: As per admit H and P: Apparently the patient had a previous medical admission a few weeks ago, her medications were changed since she was sent to rehab for continuation of care. When she was brought back home he was extremely paranoid and delusional stating that she needs to get her lungs replaced and she was scared stating that she was going to Last night - rapid response as concerns about breathing. Has restarted haldol. Also gave one dose of cogentin last night (in case of any EPS) and ativan (anxiety). Ativan appear to significantly help with anxiety last night. Has been on 1:1 as slightly disorganized behavior last night. today reports things are okay. Did vomit this morning after eating breakfast. Does appear to not be in distress. Denies depression. Does appear internally preoccupied. Overall appears patient was on Risperdal prior to admission, and Haldol as per [facility] order since admission. In context of same, will lower Haldol down to 10 mg daily, rather than 10 mg twice daily. Will also utilize lower dose of Cogentin to prevent EPS side effects and maintain Ativan as needed. There also does appear to be some somatic concerns as per patient record. Medication Compliance: Intermittent Side effects from medications: No Attending Groups: No Review of Systems Acute medical concerns: No Review of Systems Review of Systems Nothing acute Mental Status Exam Mental Status Exam Patient Appearance: Disheveled Patient Orientation: Person Level of Consciousness: Alert Patient Behavior: Guarded and Passive Mood Description: Withdrawn Affect Description: Blunted Patient Cognition Impaired: Yes Ability to Follow Directions: Poor Speech Pattern: Impoverished and Monotone Thought Content: positive for Poverty of Content Judgement: Poor Diagnostics Vital Signs (24Hr): Vital Signs - 24 hr 05/23/23 13:30 05/23/23 18:00 05/23/23 21:55 Temperature 97.6 F 97.6 F 97.7 F Pulse Rate 94 105 H 134 H Respiratory Rate 96 H 16 16 Blood Pressure 145/65 H 142/63 H 120/71 Pulse Oximetry 96 95 98 Oxygen Delivery Method Room Air Room Air Room Air 05/23/23 22:00 05/23/23 22:00 05/23/23 23:12 Temperature 97.6 F Pulse Rate 117 H 117 H 94 Respiratory Rate 16 16 16 Blood Pressure 130/64 130/64 146/65 H Pulse Oximetry 97 97 96 Oxygen Delivery Method Room Air Room Air Room Air 05/24/23 08:10 Temperature 97.2 F Pulse Rate 82 Respiratory Rate 16 Blood Pressure 130/59 L Pulse Oximetry 97 Oxygen Delivery Method Room Air BMI result Body Mass Index 45.7 Labs 05/20/23 07:52 Labs: Laboratory Results - last 48 hr 05/24/23 05/24/23 02:29 08:38 POC Glucose 185 H 117 H Medications Medications Current Medications Acetaminophen (Acetaminophen 325 Mg Tablet) 650 mg PO Q6H PRN PRN Reason: Headache/Pain Mild Scale (1-3) Last Admin: 05/24/23 08:45 Dose: 650 mg Benztropine Mesylate (Benztropine Mesylate 1 Mg Tablet) 1 mg PO BID [facility] Last Admin: 05/24/23 08:47 Dose: 1 mg Clobazam (Clobazam 10 Mg Tablet) 10 mg PO BID [facility] Last Admin: 05/24/23 08:48 Dose: 10 mg Haloperidol (Haloperidol 5 Mg Tablet) 10 mg PO BID [facility] Last Admin: 05/24/23 08:48 Dose: 10 mg Haloperidol Lactate (Haloperidol Lactate 5 Mg/Ml Vial) 10 mg IM BID PRN PRN Reason: refusal of PO Last Admin: 05/23/23 20:20 Dose: 10 mg Hydroxyzine HCl (Hydroxyzine Hcl 25 Mg Tablet) 25 mg PO Q6H PRN PRN Reason: Anxiety Last Admin: 05/24/23 01:30 Dose: 25 mg Levothyroxine Sodium (Levothyroxine Sodium 75 Mcg Tablet) 75 mcg PO DAILY@0600 [facility] Last Admin: 05/24/23 08:49 Dose: 75 mcg Lidocaine (Lidocaine 4 % Patch Adh..Patch) 1 patch TRANSDERMA DAILY [facility]; Protocol Last Admin: 05/24/23 08:49 Dose: 1 patch Magnesium Hydroxide (Milk Of Magnesia 30 Ml Oral.Susp) 30 ml PO DAILY PRN PRN Reason: Constipation Last Admin: 05/21/23 21:10 Dose: 30 ml Metformin HCl (Metformin Hcl Er 500 Mg Tab.Er.24h) 500 mg PO DAILY@0800 [facility] Last Admin: 05/24/23 08:47 Dose: 500 mg Sertraline HCl (Sertraline Hcl 100 Mg Tablet) 100 mg PO DAILY [facility] Last Admin: 05/24/23 08:48 Dose: 100 mg Spironolactone (Spironolactone 25 Mg Tablet) 25 mg PO DAILY [facility]; Protocol Last Admin: 05/24/23 08:48 Dose: 25 mg Torsemide (Torsemide 20 Mg Tablet) 60 mg PO MoWeFr [facility]; Protocol Last Admin: 05/22/23 08:12 Dose: Not Given Trazodone HCl (Trazodone Hcl 50 Mg Tablet) 50 mg PO BEDTIME MRX1 PRN PRN Reason: Insomnia Last Admin: 05/24/23 01:30 Dose: 50 mg Zonisamide (Zonisamide 100 Mg Capsule) 200 mg PO TID [facility] Last Admin: 05/24/23 08:46 Dose: 200 mg Allergies Allergies Allergy/AdvReac Type Severity Reaction Status Date / Time ascorbic acid [Vitamin C] Allergy Unknown Unknown Verified 05/19/23 21:53 dexamethasone Allergy Unknown Verified 05/19/23 21:52 ibuprofen Allergy Unknown Verified 05/19/23 21:49 Penicillins Allergy Rash Verified 05/19/23 21:55 Assessment & Plan Assessment & Plan (1) Schizophrenia: Status: Acute Code(s): F20.9 - Schizophrenia, unspecified Plan The patient is an elderly female with a past history of schizophrenia who recently had medication changes and she was referred from her home to the emergency room due to exacerbation of delusions and paranoia. The patient had been admitted in the hospital a few weeks ago and sent to rehab for continuation of care and after being discharged home she was severely psychotic. She was brought to the emergency room and started on Haldol. Plan 1. Gather collateral information. The patient is a very poor historian but she is able to verbalize her needs. 2. Continue with Haldol as prescribed. 3. 15 minutes checks since the patient is able to contract for safety. 4. The patient refused all her medications today but she was able to take a few medications for seizures with encouragement. 5. Haldol with backup IM as per court order was ordered today. 05/22: no changes- give lee order medications. Pt educated on process for same. 05/23: Overall appears patient was on Risperdal prior to admission, and Haldol as per [facility] order since admission. In context of same, will lower Haldol down to 10 mg daily, rather than 10 mg twice daily. Will also utilize lower dose of Cogentin to prevent EPS side effects and maintain Ativan as needed. There also does appear to be some somatic concerns as per patient record. Reason for continued inpatient stay Substantial Risk for: inability to function Time Spent With Patient Time: Total time managing care of this patient today ____ minutes.
[2023-05-24 19:35] VITALS: BP 142/70; PULSE 101; RESP 18; TEMP 36.4; O2SAT 95
[2023-05-25] MEDS: Levothyroxine Sodium 75 MCG TABLET PO (05:46)
[2023-05-25 07:30] LABS: Glucose, Whole Blood 126 mg/dL (60-115)
[2023-05-25 08:00] VITALS: BP 138/77; PULSE 105; RESP 16; O2SAT 97
[2023-05-25] MEDS: Sertraline HCL 100 MG TABLET PO (08:20)
[2023-05-25] MEDS: metFORMIN HCl ER 500 MG TAB.ER.24H PO (08:20)
[2023-05-25] MEDS: Spironolactone 25 MG TABLET PO (08:21)
[2023-05-25] MEDS: Zonisamide 100 MG CAPSULE 200 MG PO ×3 (08:21→20:23)
[2023-05-25] MEDS: HaloperidoL 5 MG TABLET 10 MG PO (08:21)
[2023-05-25] MEDS: Benztropine Mesylate 1 MG TABLET PO (08:21)
[2023-05-25] MEDS: cloBAZam 10 MG TABLET PO ×2 (08:21→20:23)
[2023-05-25] MEDS: Torsemide 20 MG TABLET 60 MG PO (08:25)
--- NOTE | 2023-05-25 08:29 | P.PNPSI_ITS ---
Subjective Subjective Date of Service: 05/25/23 Reason For Visit: Schizophrenia Subjective Notes: Conditional Voluntary Interim History: Pt had rapid response day prior- apparently reporting difficulty breathing- however, o2sat at time of RR was 96% on RA, Her VS stable 146/65, HR 94 afebrile. pt seen by hospitalist but no note completed. Pt reports nausea, no voming today but regurgitation especially after eating. She denies chest pain. She does report abdominal tenderness. Added omeprazole and pepcid. may benefit from barium swallowing as it has also been noted choking with eating. No signs of dystonia, not eps. She denies SI/HI. She reports feeling tired. She does seem somewhat SOB but again o2sat on room air>96% Review of Systems Review of Systems Nothing acute Mental Status Exam Mental Status Exam Patient Appearance: Disheveled Patient Orientation: Person Level of Consciousness: Alert Patient Behavior: Guarded and Passive Mood Description: Withdrawn Affect Description: Blunted Patient Cognition Impaired: Yes Ability to Follow Directions: Poor Speech Pattern: Impoverished and Monotone Diagnostics Vital Signs (24Hr): Vital Signs - 24 hr 05/24/23 19:35 Temperature 97.5 F Pulse Rate 101 H Respiratory Rate 18 Blood Pressure 142/70 H Pulse Oximetry 95 Oxygen Delivery Method Room Air BMI result Body Mass Index 45.7 Labs 05/25/23 11:47 05/25/23 11:47 Labs: Laboratory Results - last 48 hr 05/24/23 05/24/23 05/25/23 02:29 08:38 06:21 POC Glucose 185 H 117 H 126 H Medications Medications Current Medications Acetaminophen (Acetaminophen 325 Mg Tablet) 650 mg PO Q6H PRN PRN Reason: Headache/Pain Mild Scale (1-3) Last Admin: 05/24/23 08:45 Dose: 650 mg Benztropine Mesylate (Benztropine Mesylate 1 Mg Tablet) 1 mg PO DAILY [facility] Clobazam (Clobazam 10 Mg Tablet) 10 mg PO BID [facility] Last Admin: 05/24/23 20:09 Dose: 10 mg Haloperidol (Haloperidol 5 Mg Tablet) 10 mg PO DAILY [facility] Haloperidol Lactate (Haloperidol Lactate 5 Mg/Ml Vial) 10 mg IM DAILY PRN PRN Reason: refusal of PO Hydroxyzine HCl (Hydroxyzine Hcl 25 Mg Tablet) 25 mg PO Q6H PRN PRN Reason: Anxiety Last Admin: 05/24/23 01:30 Dose: 25 mg Levothyroxine Sodium (Levothyroxine Sodium 75 Mcg Tablet) 75 mcg PO DAILY@0600 [facility] Last Admin: 05/25/23 05:46 Dose: 75 mcg Lidocaine (Lidocaine 4 % Patch Adh..Patch) 1 patch TRANSDERMA DAILY [facility]; Protocol Last Admin: 05/24/23 08:49 Dose: 1 patch Lorazepam (Lorazepam 1 Mg Tablet) 1 mg PO Q6H PRN PRN Reason: severe anxiety Magnesium Hydroxide (Milk Of Magnesia 30 Ml Oral.Susp) 30 ml PO DAILY PRN PRN Reason: Constipation Last Admin: 05/21/23 21:10 Dose: 30 ml Metformin HCl (Metformin Hcl Er 500 Mg Tab.Er.24h) 500 mg PO DAILY@0800 [facility] Last Admin: 05/24/23 08:47 Dose: 500 mg Sertraline HCl (Sertraline Hcl 100 Mg Tablet) 100 mg PO DAILY [facility] Last Admin: 05/24/23 08:48 Dose: 100 mg Spironolactone (Spironolactone 25 Mg Tablet) 25 mg PO DAILY [facility]; Protocol Last Admin: 05/24/23 08:48 Dose: 25 mg Torsemide (Torsemide 20 Mg Tablet) 60 mg PO MoWeFr [facility]; Protocol Last Admin: 05/22/23 08:12 Dose: Not Given Trazodone HCl (Trazodone Hcl 50 Mg Tablet) 50 mg PO BEDTIME MRX1 PRN PRN Reason: Insomnia Last Admin: 05/24/23 20:09 Dose: 50 mg Zonisamide (Zonisamide 100 Mg Capsule) 200 mg PO TID [facility] Last Admin: 05/24/23 20:09 Dose: 200 mg Allergies Allergies Allergy/AdvReac Type Severity Reaction Status Date / Time ascorbic acid [Vitamin C] Allergy Unknown Unknown Verified 05/19/23 21:53 dexamethasone Allergy Unknown Verified 05/19/23 21:52 ibuprofen Allergy Unknown Verified 05/19/23 21:49 Penicillins Allergy Rash Verified 05/19/23 21:55 Assessment & Plan Assessment & Plan (1) Schizophrenia: Status: Acute Code(s): F20.9 - Schizophrenia, unspecified Plan The patient is an elderly female with a past history of schizophrenia who recently had medication changes and she was referred from her home to the emergency room due to exacerbation of delusions and paranoia. The patient had been admitted in the hospital a few weeks ago and sent to rehab for continuation of care and after being discharged home she was severely psychotic. She was brought to the emergency room and started on Haldol. Plan 1. Gather collateral information. The patient is a very poor historian but she is able to verbalize her needs. 2. Continue with Haldol as prescribed. 3. 15 minutes checks since the patient is able to contract for safety. 4. The patient refused all her medications today but she was able to take a few medications for seizures with encouragement. 5. Haldol with backup IM as per court order was ordered today. 05/22: no changes- give lee order medications. Pt educated on process for same. 05/23: Overall appears patient was on Risperdal prior to admission, and Haldol as per [facility] order since admission. In context of same, will lower Haldol down to 10 mg daily, rather than 10 mg twice daily. Will also utilize lower dose of Cogentin to prevent EPS side effects and maintain Ativan as needed. There also does appear to be some somatic concerns as per patient record. 05/24 barium swallowing for regurgitation and aspiration risk as seen when eating. continue all other meds. added omeprazole and pepcid. Reason for continued inpatient stay Substantial Risk for: inability to function Time Spent With Patient Time: Total time managing care of this patient today ____ minutes.
[2023-05-25] MEDS: Famotidine 20 MG TABLET PO ×2 (10:56→20:24)
[2023-05-25] MEDS: Omeprazole 20 MG CAPSULE.DR PO (10:56)
[2023-05-25 11:50] LABS: MANUAL DIFF FLAG NO
[2023-05-25 11:54] LABS: Basophils Absolute Auto 0.1 X10*3/uL (0.0-0.2); Basophils Percent Auto 0.5 % (0-2); Eosinophils Absolute Auto 0.2 X10*3/uL (0.0-0.4); Eosinophils Percent Auto 1.4 % (0-4); Imm Gran Abs Auto 0.13 X10*3/uL (0.00-0.03); Lymphocytes Absolute Auto 2.1 X10*3/uL (1.2-4.9); Mean Corpuscular HGB Conc 31.7 g/dl (31.0-35.0); Mean Corpuscular Volume 85.1 fL (80.0-98.0); Mean Platelet Volume 10.9 fL (9.4-12.3); Monocytes Absolute Auto 0.7 X10*3/uL (0.1-1.2); Monocytes Percent Auto 4.9 % (2-11); Neutrophils Percent Auto 76.2 % (45-73); Platelet Count 292 X10*3/uL (160-400); Red Blood Count 4.82 X10*6/uL (4.20-5.50); Red Cell Distribution Width 16.2 % (11.0-16.0); White Blood Count 13.2 X10*3/uL (4.8-10.8)
[2023-05-25 12:20] LABS: Alanine Aminotransferase 25 U/L (0-31); Albumin Level 4.4 g/dL (3.5-5.0); Alkaline Phosphatase 137 U/L (39-117); Anion Gap 15 (12-20); Aspartate Amino Transferase 19 U/L (5-31); Bilirubin Total 0.2 mg/dL (0.0-1.0); Blood Urea Nitrogen 13 mg/dL (9-16); Calcium 9.8 mg/dL (8.4-10.2); Carbon Dioxide 23 mmol/L (22-29); Chloride 104 mmol/L (96-108); Creatinine Clr Calc Pharmacy 63.9; Estimated Glomerular Filt Rate 59; Glucose Random 173 mg/dL (60-115); Lipase 32 U/L (8-78); Potassium 4.3 mmol/L (3.3-5.1); Sodium 138 mmol/L (135-145)
[2023-05-25 19:45] VITALS: BP 153/68; PULSE 113; RESP 18; TEMP 36.6; O2SAT 94
[2023-05-25] MEDS: traZODone HCL 50 MG TABLET PO (20:24)
[2023-05-26 06:00] VITALS: BP 133/60; PULSE 101; RESP 16; TEMP 36.6; O2SAT 94
[2023-05-26 06:34] LABS: Glucose, Whole Blood 142 mg/dL (60-115)
[2023-05-26] MEDS: metFORMIN HCl ER 500 MG TAB.ER.24H PO (10:54)
[2023-05-26] MEDS: Omeprazole 20 MG CAPSULE.DR PO (10:54)
[2023-05-26] MEDS: Spironolactone 25 MG TABLET PO (10:54)
[2023-05-26] MEDS: Zonisamide 100 MG CAPSULE 200 MG PO ×3 (10:55→20:05)
[2023-05-26] MEDS: HaloperidoL 5 MG TABLET 10 MG PO (10:55)
[2023-05-26] MEDS: Sertraline HCL 100 MG TABLET PO (10:55)
[2023-05-26] MEDS: cloBAZam 10 MG TABLET PO ×2 (10:55→20:05)
[2023-05-26] MEDS: Benztropine Mesylate 1 MG TABLET PO (10:55)
[2023-05-26] MEDS: Lidocaine 4 % Patch ADH..PATCH 1 PATCH TRANSDERMA (10:56)
--- NOTE | 2023-05-26 16:21 | P.PNPSI_ITS ---
Subjective Subjective Date of Service: 05/26/23 Reason For Visit: Schizophrenia Subjective Notes: Som[facility] Order and Conditional Voluntary Healthcare Proxy: Yes Guardianship: Yes Interim History: The nursing staff reported the patient had complaining a few days before of nausea and vomiting. She was workout with no new changes besides the addition of PPIs. On interview the patient remains with blunted affect denies new symptoms, she reported that she was asking if she could go with her . I explained her that we need to continue working on her antipsychotic treatment. Mental Status Exam Mental Status Exam Patient Appearance: Well Grooomed and Appropriate Patient Orientation: Person and Situation Level of Consciousness: Awake Patient Behavior: Guarded and Passive Mood Description: Withdrawn and Constricted Affect Description: Blunted Patient Cognition Impaired: Yes Ability to Follow Directions: Good Speech Pattern: Clear Hallucinations: Auditory Delusions: Paranoid Ideation and Ideas of Reference Thought Process: Distracted and Slowed Thinking Thought Content: positive for [place] and positive for Loose Associations Judgement: Poor Diagnostics Vital Signs (24Hr): Vital Signs - 24 hr 05/25/23 19:45 05/26/23 06:00 Temperature 97.8 F 97.9 F Pulse Rate 113 H 101 H Respiratory Rate 18 16 Blood Pressure 153/68 H 133/60 Pulse Oximetry 94 94 Oxygen Delivery Method Room Air Room Air BMI result Body Mass Index 45.7 Labs 05/25/23 11:47 05/25/23 11:47 Labs: Laboratory Results - last 48 hr 05/25/23 05/25/23 05/26/23 06:21 11:47 06:06 WBC 13.2 H RBC 4.82 Hgb 13.0 Hct 41.0 MCV 85.1 MCH 27.0 MCHC 31.7 RDW 16.2 H Plt Count 292 MPV 10.9 Immature Gran % (Auto) 1.0 H Neut % (Auto) 76.2 H Lymph % (Auto) 16.0 L [place] % (Auto) 4.9 Eos % (Auto) 1.4 Baso % (Auto) 0.5 Lymph # (Auto) 2.1 [place] # (Auto) 0.7 Eos # (Auto) 0.2 Baso # (Auto) 0.1 Abs Immat Gran (auto) 0.13 H Absolute Neuts (auto) 10.0 H Absolute Nucleated RBC 0.000 Nucleated RBC % (auto) 0.0 Sodium 138 Potassium 4.3 Chloride 104 Carbon Dioxide 23 Anion Gap 15 BUN 13 Creatinine 0.94 Estim Creat Clear Calc 63.9 Estimated GFR 59 POC Glucose 126 H 142 H Random Glucose 173 H Calcium 9.8 D Total Bilirubin 0.2 AST 19 ALT 25 Alkaline Phosphatase 137 H Total Protein 8.0 Albumin 4.4 Lipase 32 Medications Medications Current Medications Acetaminophen (Acetaminophen 325 Mg Tablet) 650 mg PO Q6H PRN PRN Reason: Headache/Pain Mild Scale (1-3) Last Admin: 05/24/23 08:45 Dose: 650 mg Benztropine Mesylate (Benztropine Mesylate 1 Mg Tablet) 1 mg PO DAILY [facility] Last Admin: 05/26/23 10:55 Dose: 1 mg Clobazam (Clobazam 10 Mg Tablet) 10 mg PO BID [facility] Last Admin: 05/26/23 10:55 Dose: 10 mg Famotidine (Famotidine 20 Mg Tablet) 20 mg PO BEDTIME [facility] Last Admin: 05/25/23 20:24 Dose: 20 mg Haloperidol (Haloperidol 5 Mg Tablet) 10 mg PO DAILY [facility] Last Admin: 05/26/23 10:55 Dose: 10 mg Haloperidol Lactate (Haloperidol Lactate 5 Mg/Ml Vial) 10 mg IM DAILY PRN PRN Reason: refusal of PO Hydroxyzine HCl (Hydroxyzine Hcl 25 Mg Tablet) 25 mg PO Q6H PRN PRN Reason: Anxiety Last Admin: 05/24/23 01:30 Dose: 25 mg Levothyroxine Sodium (Levothyroxine Sodium 75 Mcg Tablet) 75 mcg PO DAILY@0600 [facility] Last Admin: 05/26/23 05:07 Dose: Not Given Lidocaine (Lidocaine 4 % Patch Adh..Patch) 1 patch TRANSDERMA DAILY [facility]; Protocol Last Admin: 05/26/23 10:56 Dose: 1 patch Lorazepam (Lorazepam 1 Mg Tablet) 1 mg PO Q6H PRN PRN Reason: severe anxiety Magnesium Hydroxide (Milk Of Magnesia 30 Ml Oral.Susp) 30 ml PO DAILY PRN PRN Reason: Constipation Last Admin: 05/21/23 21:10 Dose: 30 ml Metformin HCl (Metformin Hcl Er 500 Mg Tab.Er.24h) 500 mg PO DAILY@0800 [facility] Last Admin: 05/26/23 10:54 Dose: 500 mg Omeprazole (Omeprazole 20 Mg Capsule.Dr) 20 mg PO DAILY@0800 [facility] Last Admin: 05/26/23 10:54 Dose: 20 mg Sertraline HCl (Sertraline Hcl 100 Mg Tablet) 100 mg PO DAILY [facility] Last Admin: 05/26/23 10:55 Dose: 100 mg Spironolactone (Spironolactone 25 Mg Tablet) 25 mg PO DAILY [facility]; Protocol Last Admin: 05/26/23 10:54 Dose: 25 mg Torsemide (Torsemide 20 Mg Tablet) 60 mg PO MoWeFr [facility]; Protocol Last Admin: 05/25/23 08:25 Dose: 60 mg Trazodone HCl (Trazodone Hcl 50 Mg Tablet) 50 mg PO BEDTIME MRX1 PRN PRN Reason: Insomnia Last Admin: 05/25/23 20:24 Dose: 50 mg Zonisamide (Zonisamide 100 Mg Capsule) 200 mg PO TID [facility] Last Admin: 05/26/23 15:13 Dose: 200 mg Allergies Allergies Allergy/AdvReac Type Severity Reaction Status Date / Time ascorbic acid [Vitamin C] Allergy Unknown Unknown Verified 05/19/23 21:53 dexamethasone Allergy Unknown Verified 05/19/23 21:52 ibuprofen Allergy Unknown Verified 05/19/23 21:49 Penicillins Allergy Rash Verified 05/19/23 21:55 Assessment & Plan Assessment & Plan (1) Schizophrenia: Status: Acute Code(s): F20.9 - Schizophrenia, unspecified Plan The patient is an elderly female with a past history of schizophrenia who recently had medication changes and she was referred from her home to the emergency room due to exacerbation of delusions and paranoia. The patient had been admitted in the hospital a few weeks ago and sent to rehab for continuation of care and after being discharged home she was severely psychotic. She was brought to the emergency room and started on Haldol. Plan 1. Gather collateral information. The patient is a very poor historian but she is able to verbalize her needs. 2. Continue with Haldol as prescribed. 3. 15 minutes checks since the patient is able to contract for safety. 4. The patient refused all her medications today but she was able to take a few medications for seizures with encouragement. 5. Haldol with backup IM as per court order was ordered today. 6. Start Risperdal 0.5 p.o. b.i.d. on May 25 in the afternoon Reason for continued inpatient stay Substantial Risk for: inability to function, rapid decompensation and med/psych decompensation Time Spent With Patient Time: Total time managing care of this patient today __20__ minutes.
[2023-05-26] MEDS: risperiDONE 0.5 MG TABLET PO (20:05)
[2023-05-26] MEDS: Famotidine 20 MG TABLET PO (20:05)
[2023-05-26] MEDS: Milk of Magnesia 30 ML ORAL.SUSP PO (20:16)
[2023-05-26 20:33] VITALS: BP 129/67; PULSE 129; RESP 17; TEMP 36.4; O2SAT 96
[2023-05-26 21:00] VITALS: PULSE 102
[2023-05-27] MEDS: Levothyroxine Sodium 75 MCG TABLET PO (05:36)
[2023-05-27 05:48] LABS: Glucose, Whole Blood 149 mg/dL (60-115)
[2023-05-27 06:00] VITALS: BP 121/58; PULSE 80; RESP 16; TEMP 36.6; O2SAT 93
[2023-05-27 07:44] LABS: Estimated Glomerular Filt Rate > 60
[2023-05-27] MEDS: HaloperidoL 5 MG TABLET 10 MG PO (08:29)
[2023-05-27] MEDS: metFORMIN HCl ER 500 MG TAB.ER.24H PO (08:30)
[2023-05-27] MEDS: Omeprazole 20 MG CAPSULE.DR PO (08:30)
[2023-05-27] MEDS: cloBAZam 10 MG TABLET PO ×2 (08:30→20:38)
[2023-05-27] MEDS: Benztropine Mesylate 1 MG TABLET PO (08:30)
[2023-05-27] MEDS: Sertraline HCL 100 MG TABLET PO (08:30)
[2023-05-27] MEDS: Zonisamide 100 MG CAPSULE 200 MG PO ×3 (08:30→20:38)
[2023-05-27] MEDS: Spironolactone 25 MG TABLET PO (08:30)
[2023-05-27] MEDS: risperiDONE 0.5 MG TABLET PO (08:30)
[2023-05-27] MEDS: Lidocaine 4 % Patch ADH..PATCH 1 PATCH TRANSDERMA (08:33)
[2023-05-27] MEDS: Torsemide 20 MG TABLET 60 MG PO (09:50)
--- NOTE | 2023-05-27 12:46 | P.PNPSI_ITS ---
Subjective Subjective Date of Service: 05/27/23 Reason For Visit: Schizophrenia Subjective Notes: Conditional Voluntary Interim History: The nursing staff reported the patient had been a little brighter, she slept 8 hours and she ate lunch and dinner. The occupational therapist reports that she looks less internally preoccupied. Yesterday I had a long conversation with her who is the healthcare proxy and reported that the patient was admitted before and she used to do very well in the past with Clozaril but she developed edema the change it to Risperdal up to 5 mg with some improvement. She had a long history of noncompliance we discussed the possibility of using Invega Sustenna. Mental Status Exam Mental Status Exam Patient Appearance: Appropriate and Unkempt Patient Orientation: Person and Situation Level of Consciousness: Awake and Appropriate Patient Behavior: Guarded and Passive Mood Description: Withdrawn Affect Description: Constricted Patient Cognition Impaired: Yes Ability to Follow Directions: Good Speech Pattern: Clear Hallucinations: Auditory Delusions: Paranoid Ideation and Ideas of Reference Thought Process: Distracted and Slowed Thinking Thought Content: positive for [place] and positive for Poverty of Content Judgement: Fair Diagnostics Vital Signs (24Hr): Vital Signs - 24 hr 05/26/23 20:33 05/26/23 21:00 05/27/23 06:00 Temperature 97.5 F 98 F Pulse Rate 129 H 102 H 80 Respiratory Rate 17 16 Blood Pressure 129/67 121/58 L Pulse Oximetry 96 93 Oxygen Delivery Method Room Air Venturi Mask Room Air BMI result Body Mass Index 45.7 Labs 05/25/23 11:47 05/27/23 06:47 Labs: Laboratory Results - last 48 hr 05/26/23 05/27/23 05/27/23 06:06 05:35 06:47 Hold Purple Top SEE NOTE Creatinine 0.87 Estim Creat Clear Calc 69.0 Estimated GFR > 60 POC Glucose 142 H 149 H Medications Medications Current Medications Acetaminophen (Acetaminophen 325 Mg Tablet) 650 mg PO Q6H PRN PRN Reason: Headache/Pain Mild Scale (1-3) Last Admin: 05/24/23 08:45 Dose: 650 mg Benztropine Mesylate (Benztropine Mesylate 1 Mg Tablet) 1 mg PO DAILY [facility] Last Admin: 05/27/23 08:30 Dose: 1 mg Clobazam (Clobazam 10 Mg Tablet) 10 mg PO BID [facility] Last Admin: 05/27/23 08:30 Dose: 10 mg Famotidine (Famotidine 20 Mg Tablet) 20 mg PO BEDTIME [facility] Last Admin: 05/26/23 20:05 Dose: 20 mg Haloperidol (Haloperidol 5 Mg Tablet) 10 mg PO DAILY [facility] Last Admin: 05/27/23 08:29 Dose: 10 mg Haloperidol Lactate (Haloperidol Lactate 5 Mg/Ml Vial) 10 mg IM DAILY PRN PRN Reason: refusal of PO Hydroxyzine HCl (Hydroxyzine Hcl 25 Mg Tablet) 25 mg PO Q6H PRN PRN Reason: Anxiety Last Admin: 05/24/23 01:30 Dose: 25 mg Levothyroxine Sodium (Levothyroxine Sodium 75 Mcg Tablet) 75 mcg PO DAILY@0600 [facility] Last Admin: 05/27/23 05:36 Dose: 75 mcg Lidocaine (Lidocaine 4 % Patch Adh..Patch) 1 patch TRANSDERMA DAILY [facility]; Protocol Last Admin: 05/27/23 08:33 Dose: 1 patch Lorazepam (Lorazepam 1 Mg Tablet) 1 mg PO Q6H PRN PRN Reason: severe anxiety Magnesium Hydroxide (Milk Of Magnesia 30 Ml Oral.Susp) 30 ml PO DAILY PRN PRN Reason: Constipation Last Admin: 05/26/23 20:16 Dose: 30 ml Metformin HCl (Metformin Hcl Er 500 Mg Tab.Er.24h) 500 mg PO DAILY@0800 [facility] Last Admin: 05/27/23 08:30 Dose: 500 mg Omeprazole (Omeprazole 20 Mg Capsule.Dr) 20 mg PO DAILY@0800 [facility] Last Admin: 05/27/23 08:30 Dose: 20 mg Risperidone (Risperidone 1 Mg Tablet) 1 mg PO BID [facility] Senna (Sennosides 8.6 Mg Tablet) 8.6 mg PO BEDTIME [facility] Sertraline HCl (Sertraline Hcl 100 Mg Tablet) 100 mg PO DAILY [facility] Last Admin: 05/27/23 08:30 Dose: 100 mg Spironolactone (Spironolactone 25 Mg Tablet) 25 mg PO DAILY [facility]; Protocol Last Admin: 05/27/23 08:30 Dose: 25 mg Torsemide (Torsemide 20 Mg Tablet) 60 mg PO MoWeFr [facility]; Protocol Last Admin: 05/27/23 09:50 Dose: 60 mg Trazodone HCl (Trazodone Hcl 50 Mg Tablet) 50 mg PO BEDTIME MRX1 PRN PRN Reason: Insomnia Last Admin: 05/25/23 20:24 Dose: 50 mg Zonisamide (Zonisamide 100 Mg Capsule) 200 mg PO TID [facility] Last Admin: 05/27/23 08:30 Dose: 200 mg Allergies Allergies Allergy/AdvReac Type Severity Reaction Status Date / Time ascorbic acid [Vitamin C] Allergy Unknown Unknown Verified 05/19/23 21:53 dexamethasone Allergy Unknown Verified 05/19/23 21:52 ibuprofen Allergy Unknown Verified 05/19/23 21:49 Penicillins Allergy Rash Verified 05/19/23 21:55 Assessment & Plan Assessment & Plan (1) Schizophrenia: Status: Acute Code(s): F20.9 - Schizophrenia, unspecified Plan The patient is an elderly female with a past history of schizophrenia who recently had medication changes and she was referred from her home to the emergency room due to exacerbation of delusions and paranoia. The patient had been admitted in the hospital a few weeks ago and sent to rehab for continuation of care and after being discharged home she was severely psychotic. She was brought to the emergency room and started on Haldol. Plan 1. Gather collateral information. The patient is a very poor historian but she is able to verbalize her needs. 2. Continue with Haldol as prescribed. 3. 15 minutes checks since the patient is able to contract for safety. 4. The patient refused all her medications today but she was able to take a few medications for seizures with encouragement. 5. Haldol with backup IM as per court order was ordered today. 6. Start Risperdal 0.5 p.o. b.i.d. on May 25 in the afternoon. On May 26 we are increasing up to 1 mg p.o. b.i.d. 7. Start MiraLax as per patient's request Reason for continued inpatient stay Substantial Risk for: inability to function, rapid decompensation and med/psych decompensation Time Spent With Patient Time: Total time managing care of this patient today _20___ minutes.
[2023-05-27 20:37] VITALS: BP 135/63; PULSE 104; RESP 17; TEMP 36.1; O2SAT 95
[2023-05-27] MEDS: risperiDONE 1 MG TABLET PO (20:38)
[2023-05-27] MEDS: Sennosides 8.6 MG TABLET PO (20:38)
[2023-05-27] MEDS: Famotidine 20 MG TABLET PO (20:38)
[2023-05-28] MEDS: Levothyroxine Sodium 75 MCG TABLET PO (05:58)
[2023-05-28 06:11] LABS: Glucose, Whole Blood 151 mg/dL (60-115)
[2023-05-28 08:00] VITALS: BP 133/65; PULSE 89; RESP 18; TEMP 36.3; O2SAT 97
[2023-05-28] MEDS: Lidocaine 4 % Patch ADH..PATCH 1 PATCH TRANSDERMA (08:53)
[2023-05-28] MEDS: polyethylene glycoL 3350 17 GM POWD.PACK PO (08:53)
[2023-05-28] MEDS: HaloperidoL 5 MG TABLET 10 MG PO (08:54)
[2023-05-28] MEDS: metFORMIN HCl ER 500 MG TAB.ER.24H PO (08:54)
[2023-05-28] MEDS: Zonisamide 100 MG CAPSULE 200 MG PO ×3 (08:54→20:18)
[2023-05-28] MEDS: Sertraline HCL 100 MG TABLET PO (08:54)
[2023-05-28 08:55] VITALS: BP 133/65
[2023-05-28] MEDS: Spironolactone 25 MG TABLET PO (08:55)
[2023-05-28] MEDS: cloBAZam 10 MG TABLET PO ×2 (08:55→20:17)
[2023-05-28] MEDS: risperiDONE 1 MG TABLET PO ×2 (08:55→20:18)
[2023-05-28] MEDS: Benztropine Mesylate 1 MG TABLET PO (08:55)
[2023-05-28] MEDS: Omeprazole 20 MG CAPSULE.DR PO (08:55)
--- NOTE | 2023-05-28 11:54 | P.PNPSI_ITS ---
Subjective Subjective Date of Service: 05/28/23 Reason For Visit: Schizophrenia Subjective Notes: Conditional Voluntary Interim History: The nursing staff reported the patient looks less psychotic more pleasant. I found out that the co-payment for Melisa Mckeon will be over a 1000 dollars in the community and will explore the possibility of Risperdal Consta. In the meantime we kept on Haldol 10 mg p.o. daily and Risperdal 1 mg p.o. b.i.d. we will explored the possibility of Risperdal Consta. Mental Status Exam Mental Status Exam Patient Appearance: Appropriate Patient Orientation: Person and Situation Level of Consciousness: Awake and Appropriate Patient Behavior: Guarded and Passive Mood Description: Calm Affect Description: Blunted Patient Cognition Impaired: Yes Ability to Follow Directions: Good Speech Pattern: Clear Hallucinations: None Delusions: Paranoid Ideation and Ideas of Reference Thought Process: Distracted and Slowed Thinking Thought Content: positive for [place], positive for [place] and positive for Poverty of Content Judgement: Fair Diagnostics Vital Signs (24Hr): Vital Signs - 24 hr 05/27/23 20:37 05/28/23 08:00 05/28/23 08:55 Temperature 96.9 F 97.3 F Pulse Rate 104 H 89 Respiratory Rate 17 18 Blood Pressure 135/63 133/65 133/65 Pulse Oximetry 95 97 Oxygen Delivery Method Room Air Room Air BMI result Body Mass Index 45.7 Labs 05/25/23 11:47 05/27/23 06:47 Labs: Laboratory Results - last 48 hr 05/27/23 05/27/23 05/28/23 05:35 06:47 05:57 Hold Purple Top SEE NOTE Creatinine 0.87 Estim Creat Clear Calc 69.0 Estimated GFR > 60 POC Glucose 149 H 151 H Medications Medications Current Medications Acetaminophen (Acetaminophen 325 Mg Tablet) 650 mg PO Q6H PRN PRN Reason: Headache/Pain Mild Scale (1-3) Last Admin: 05/24/23 08:45 Dose: 650 mg Benztropine Mesylate (Benztropine Mesylate 1 Mg Tablet) 1 mg PO DAILY [facility] Last Admin: 05/28/23 08:55 Dose: 1 mg Clobazam (Clobazam 10 Mg Tablet) 10 mg PO BID [facility] Last Admin: 05/28/23 08:55 Dose: 10 mg Famotidine (Famotidine 20 Mg Tablet) 20 mg PO BEDTIME [facility] Last Admin: 05/27/23 20:38 Dose: 20 mg Haloperidol (Haloperidol 5 Mg Tablet) 10 mg PO DAILY [facility] Last Admin: 05/28/23 08:54 Dose: 10 mg Haloperidol Lactate (Haloperidol Lactate 5 Mg/Ml Vial) 10 mg IM DAILY PRN PRN Reason: refusal of PO Hydroxyzine HCl (Hydroxyzine Hcl 25 Mg Tablet) 25 mg PO Q6H PRN PRN Reason: Anxiety Last Admin: 05/24/23 01:30 Dose: 25 mg Levothyroxine Sodium (Levothyroxine Sodium 75 Mcg Tablet) 75 mcg PO DAILY@0600 [facility] Last Admin: 05/28/23 05:58 Dose: 75 mcg Lidocaine (Lidocaine 4 % Patch Adh..Patch) 1 patch TRANSDERMA DAILY [facility]; Protocol Last Admin: 05/28/23 08:53 Dose: 1 patch Lorazepam (Lorazepam 1 Mg Tablet) 1 mg PO Q6H PRN PRN Reason: severe anxiety Magnesium Hydroxide (Milk Of Magnesia 30 Ml Oral.Susp) 30 ml PO DAILY PRN PRN Reason: Constipation Last Admin: 05/26/23 20:16 Dose: 30 ml Metformin HCl (Metformin Hcl Er 500 Mg Tab.Er.24h) 500 mg PO DAILY@0800 [facility] Last Admin: 05/28/23 08:54 Dose: 500 mg Omeprazole (Omeprazole 20 Mg Capsule.Dr) 20 mg PO DAILY@0800 [facility] Last Admin: 05/28/23 08:55 Dose: 20 mg Polyethylene Glycol (Polyethylene Glycol 3350 17 Gm Powd.Pack) 17 gm PO DAILY [facility] Last Admin: 05/28/23 08:53 Dose: 17 gm Risperidone (Risperidone 1 Mg Tablet) 1 mg PO BID [facility] Last Admin: 05/28/23 08:55 Dose: 1 mg Senna (Sennosides 8.6 Mg Tablet) 8.6 mg PO BEDTIME [facility] Last Admin: 05/27/23 20:38 Dose: 8.6 mg Sertraline HCl (Sertraline Hcl 100 Mg Tablet) 100 mg PO DAILY [facility] Last Admin: 05/28/23 08:54 Dose: 100 mg Spironolactone (Spironolactone 25 Mg Tablet) 25 mg PO DAILY [facility]; Protocol Last Admin: 05/28/23 08:55 Dose: 25 mg Torsemide (Torsemide 20 Mg Tablet) 60 mg PO MoWeFr [facility]; Protocol Last Admin: 05/27/23 09:50 Dose: 60 mg Trazodone HCl (Trazodone Hcl 50 Mg Tablet) 50 mg PO BEDTIME MRX1 PRN PRN Reason: Insomnia Last Admin: 05/25/23 20:24 Dose: 50 mg Zonisamide (Zonisamide 100 Mg Capsule) 200 mg PO TID [facility] Last Admin: 05/28/23 08:54 Dose: 200 mg Allergies Allergies Allergy/AdvReac Type Severity Reaction Status Date / Time ascorbic acid [Vitamin C] Allergy Unknown Unknown Verified 05/19/23 21:53 dexamethasone Allergy Unknown Verified 05/19/23 21:52 ibuprofen Allergy Unknown Verified 05/19/23 21:49 Penicillins Allergy Rash Verified 05/19/23 21:55 Assessment & Plan Assessment & Plan (1) Schizophrenia: Status: Acute Code(s): F20.9 - Schizophrenia, unspecified Plan The patient is an elderly female with a past history of schizophrenia who recently had medication changes and she was referred from her home to the emergency room due to exacerbation of delusions and paranoia. The patient had been admitted in the hospital a few weeks ago and sent to rehab for continuation of care and after being discharged home she was severely psychotic. She was brought to the emergency room and started on Haldol. Plan 1. Gather collateral information. The patient is a very poor historian but she is able to verbalize her needs. 2. Continue with Haldol as prescribed. 3. 15 minutes checks since the patient is able to contract for safety. 4. The patient refused all her medications today but she was able to take a few medications for seizures with encouragement. 5. Haldol with backup IM as per court order was ordered today. 6. Start Risperdal 0.5 p.o. b.i.d. on May 25 in the afternoon. On May 26 we are increasing up to 1 mg p.o. b.i.d. 7. Start MiraLax as per patient's request Reason for continued inpatient stay Substantial Risk for: inability to function, rapid decompensation and med/psych decompensation Time Spent With Patient Time: Total time managing care of this patient today __20__ minutes.
[2023-05-28 20:00] VITALS: BP 132/62; PULSE 90; RESP 18; TEMP 36; O2SAT 96
[2023-05-28] MEDS: Famotidine 20 MG TABLET PO (20:17)
[2023-05-28] MEDS: Sennosides 8.6 MG TABLET PO (20:18)
[2023-05-29] MEDS: Levothyroxine Sodium 75 MCG TABLET PO (06:15)
[2023-05-29 06:46] LABS: Glucose, Whole Blood 143 mg/dL (60-115)
[2023-05-29 08:00] VITALS: BP 135/67; PULSE 120; RESP 18; TEMP 36.3; O2SAT 95
[2023-05-29] MEDS: Lidocaine 4 % Patch ADH..PATCH 1 PATCH TRANSDERMA (08:51)
[2023-05-29] MEDS: HaloperidoL 5 MG TABLET 10 MG PO (08:52)
[2023-05-29] MEDS: polyethylene glycoL 3350 17 GM POWD.PACK PO (08:52)
[2023-05-29] MEDS: cloBAZam 10 MG TABLET PO ×2 (08:52→20:31)
[2023-05-29] MEDS: Omeprazole 20 MG CAPSULE.DR PO (08:52)
[2023-05-29] MEDS: Benztropine Mesylate 1 MG TABLET PO (08:52)
[2023-05-29] MEDS: Zonisamide 100 MG CAPSULE 200 MG PO ×3 (08:52→20:31)
[2023-05-29] MEDS: metFORMIN HCl ER 500 MG TAB.ER.24H PO (08:52)
[2023-05-29] MEDS: risperiDONE 1 MG TABLET PO ×2 (08:53→20:31)
[2023-05-29] MEDS: Sertraline HCL 100 MG TABLET PO (08:53)
[2023-05-29] MEDS: Spironolactone 25 MG TABLET PO (08:53)
[2023-05-29] MEDS: Torsemide 20 MG TABLET 60 MG PO (08:59)
[2023-05-29 09:06] VITALS: BMI 45.9
--- NOTE | 2023-05-29 14:05 | P.PNPSI_ITS ---
Subjective Subjective Date of Service: 05/29/23 Reason For Visit: Schizophrenia Subjective Notes: Conditional Voluntary Interim History: The nursing staff reported that her affect remains flat hypoactive but she is more pleasant. She looks less internally preoccupied. We are going to order a UA. On interview the patient denies new symptoms Mental Status Exam Mental Status Exam Patient Appearance: Appropriate Patient Orientation: Person and Situation Level of Consciousness: Awake and Appropriate Patient Behavior: Guarded and Passive Mood Description: Withdrawn Affect Description: Constricted Patient Cognition Impaired: Yes Ability to Follow Directions: Good Speech Pattern: Clear Hallucinations: None Delusions: Paranoid Ideation and Ideas of Reference Thought Process: Distracted Thought Content: positive for [place] and positive for Poverty of Content Judgement: Fair Diagnostics Vital Signs (24Hr): Vital Signs - 24 hr 05/28/23 20:00 05/29/23 08:00 Temperature 96.8 F 97.3 F Pulse Rate 90 120 H Respiratory Rate 18 18 Blood Pressure 132/62 135/67 Pulse Oximetry 96 95 Oxygen Delivery Method Room Air Room Air BMI result Body Mass Index 45.9 Labs 05/25/23 11:47 05/27/23 06:47 Labs: Laboratory Results - last 48 hr 05/28/23 05/29/23 05:57 06:21 POC Glucose 151 H 143 H Medications Medications Current Medications Acetaminophen (Acetaminophen 325 Mg Tablet) 650 mg PO Q6H PRN PRN Reason: Headache/Pain Mild Scale (1-3) Last Admin: 05/24/23 08:45 Dose: 650 mg Benztropine Mesylate (Benztropine Mesylate 1 Mg Tablet) 1 mg PO DAILY [facility] Last Admin: 05/29/23 08:52 Dose: 1 mg Clobazam (Clobazam 10 Mg Tablet) 10 mg PO BID [facility] Last Admin: 05/29/23 08:52 Dose: 10 mg Famotidine (Famotidine 20 Mg Tablet) 20 mg PO BEDTIME [facility] Last Admin: 05/28/23 20:17 Dose: 20 mg Haloperidol (Haloperidol 5 Mg Tablet) 10 mg PO DAILY [facility] Last Admin: 05/29/23 08:52 Dose: 10 mg Haloperidol Lactate (Haloperidol Lactate 5 Mg/Ml Vial) 10 mg IM DAILY PRN PRN Reason: refusal of PO Hydroxyzine HCl (Hydroxyzine Hcl 25 Mg Tablet) 25 mg PO Q6H PRN PRN Reason: Anxiety Last Admin: 05/24/23 01:30 Dose: 25 mg Levothyroxine Sodium (Levothyroxine Sodium 75 Mcg Tablet) 75 mcg PO DAILY@0600 [facility] Last Admin: 05/29/23 06:15 Dose: 75 mcg Lidocaine (Lidocaine 4 % Patch Adh..Patch) 1 patch TRANSDERMA DAILY [facility]; Protocol Last Admin: 05/29/23 08:51 Dose: 1 patch Lorazepam (Lorazepam 1 Mg Tablet) 1 mg PO Q6H PRN PRN Reason: severe anxiety Magnesium Hydroxide (Milk Of Magnesia 30 Ml Oral.Susp) 30 ml PO DAILY PRN PRN Reason: Constipation Last Admin: 05/26/23 20:16 Dose: 30 ml Metformin HCl (Metformin Hcl Er 500 Mg Tab.Er.24h) 500 mg PO DAILY@0800 [facility] Last Admin: 05/29/23 08:52 Dose: 500 mg Omeprazole (Omeprazole 20 Mg Capsule.Dr) 20 mg PO DAILY@0800 [facility] Last Admin: 05/29/23 08:52 Dose: 20 mg Polyethylene Glycol (Polyethylene Glycol 3350 17 Gm Powd.Pack) 17 gm PO DAILY [facility] Last Admin: 05/29/23 08:52 Dose: 17 gm Risperidone (Risperidone 1 Mg Tablet) 1 mg PO BID [facility] Last Admin: 05/29/23 08:53 Dose: 1 mg Senna (Sennosides 8.6 Mg Tablet) 8.6 mg PO BEDTIME [facility] Last Admin: 05/28/23 20:18 Dose: 8.6 mg Sertraline HCl (Sertraline Hcl 100 Mg Tablet) 100 mg PO DAILY [facility] Last Admin: 05/29/23 08:53 Dose: 100 mg Spironolactone (Spironolactone 25 Mg Tablet) 25 mg PO DAILY [facility]; Protocol Last Admin: 05/29/23 08:53 Dose: 25 mg Torsemide (Torsemide 20 Mg Tablet) 60 mg PO MoWeFr [facility]; Protocol Last Admin: 05/29/23 08:59 Dose: 60 mg Trazodone HCl (Trazodone Hcl 50 Mg Tablet) 50 mg PO BEDTIME MRX1 PRN PRN Reason: Insomnia Last Admin: 05/25/23 20:24 Dose: 50 mg Zonisamide (Zonisamide 100 Mg Capsule) 200 mg PO TID [facility] Last Admin: 05/29/23 08:52 Dose: 200 mg Allergies Allergies Allergy/AdvReac Type Severity Reaction Status Date / Time ascorbic acid [Vitamin C] Allergy Unknown Unknown Verified 05/19/23 21:53 dexamethasone Allergy Unknown Verified 05/19/23 21:52 ibuprofen Allergy Unknown Verified 05/19/23 21:49 Penicillins Allergy Rash Verified 05/19/23 21:55 Assessment & Plan Assessment & Plan (1) Schizophrenia: Status: Acute Code(s): F20.9 - Schizophrenia, unspecified Plan The patient is an elderly female with a past history of schizophrenia who recently had medication changes and she was referred from her home to the emergency room due to exacerbation of delusions and paranoia. The patient had been admitted in the hospital a few weeks ago and sent to rehab for continuation of care and after being discharged home she was severely psychotic. She was brought to the emergency room and started on Haldol. Plan 1. Gather collateral information. The patient is a very poor historian but she is able to verbalize her needs. 2. Continue with Haldol as prescribed. 3. 15 minutes checks since the patient is able to contract for safety. 4. The patient refused all her medications today but she was able to take a few medications for seizures with encouragement. 5. Haldol with backup IM as per court order was ordered today. 6. Start Risperdal 0.5 p.o. b.i.d. on May 25 in the afternoon. On May 26 we are increasing up to 1 mg p.o. b.i.d. 7. Start MiraLax as per patient's request Reason for continued inpatient stay Substantial Risk for: inability to function, rapid decompensation and med/psych decompensation Time Spent With Patient Time: Total time managing care of this patient today _20___ minutes.
--- NOTE | 2023-05-29 15:18 | PC.NURSE ---
Patient with elevated pulse this am 112-120. Urine foul smelling per [employer]. Patient denies other urinary symptoms. Dr. Nunez updated.Clean catch urine, 150cc, slightly cloudy light yellow urine collected without difficulty at [address] Smith. Specimen sent to lab. Results pending.
[2023-05-29 15:31] LABS: Appearance Urine Clear; Color Urine Yellow; Glucose Urine UA Negative (Negative); Leukocyte Esterase Urine Small (1+) (Negative); Nitrite Urine Negative (Negative); PH 5.5 (5.0-9.0); UMIC TRIGGER UACC YES; Urine Blood Negative (Negative); Urine Ketones Negative (Negative); Urine Protein Negative (Neg-Trace)
[2023-05-29 15:37] LABS: Bacteria Urine 4+ (None Seen); Hyaline Casts Urine 0-2 /LPF (0-2); RBC Urine 0-2 /HPF (0-2); UACC Culture Trigger YES
[2023-05-29 20:28] VITALS: BP 114/55; PULSE 110; RESP 18; TEMP 36; O2SAT 96
[2023-05-29] MEDS: Famotidine 20 MG TABLET PO (20:31)
[2023-05-29] MEDS: Sennosides 8.6 MG TABLET PO (20:31)
[2023-05-30] MEDS: Levothyroxine Sodium 75 MCG TABLET PO (06:03)
[2023-05-30 06:44] LABS: Glucose, Whole Blood 154 mg/dL (60-115)
[2023-05-30 08:09] VITALS: BP 123/71; PULSE 78; RESP 16; TEMP 35.9; O2SAT 94
[2023-05-30 09:44] VITALS: BP 124/69
[2023-05-30] MEDS: Spironolactone 25 MG TABLET PO (09:44)
[2023-05-30] MEDS: Sertraline HCL 100 MG TABLET PO (09:44)
[2023-05-30] MEDS: Omeprazole 20 MG CAPSULE.DR PO (09:45)
[2023-05-30] MEDS: risperiDONE 1 MG TABLET PO ×2 (09:45→21:38)
[2023-05-30] MEDS: cloBAZam 10 MG TABLET PO ×2 (09:45→21:39)
[2023-05-30] MEDS: HaloperidoL 5 MG TABLET 10 MG PO (09:45)
[2023-05-30] MEDS: metFORMIN HCl ER 500 MG TAB.ER.24H PO (09:45)
[2023-05-30] MEDS: Zonisamide 100 MG CAPSULE 200 MG PO ×3 (09:45→21:37)
[2023-05-30] MEDS: Benztropine Mesylate 1 MG TABLET PO (09:45)
[2023-05-30] MEDS: Lidocaine 4 % Patch ADH..PATCH 1 PATCH TRANSDERMA (09:48)
[2023-05-30] MEDS: polyethylene glycoL 3350 17 GM POWD.PACK PO (09:51)
--- NOTE | 2023-05-30 11:22 | PC.NURSE ---
Reported positive urine culture to Dr. Dan.
--- NOTE | 2023-05-30 18:01 | P.PNPSI_ITS ---
Subjective Subjective Date of Service: 05/30/23 Reason For Visit: Schizophrenia Interim History: Met with patient; discussed with team Patient with UA results positive for UTI, consulted with hospitalist and patient started on Ceftin. Patient a little hesitant to accept she had a UTI saying her urine is clear but agreed to start antibiotic. Denied AVH, denied SI. Grinding her teeth continually. Says she would like to know when she can discharge. Mental Status Exam Mental Status Exam Patient Appearance: Appropriate Patient Orientation: Person and Situation Level of Consciousness: Awake and Appropriate Patient Behavior: Guarded and Passive Mood Description: Withdrawn Affect Description: Constricted Patient Cognition Impaired: Yes Ability to Follow Directions: Good Speech Pattern: Clear Hallucinations: None Delusions: Paranoid Ideation and Ideas of Reference Thought Process: Distracted Thought Content: positive for [place] and positive for Poverty of Content Judgement: Fair Diagnostics Vital Signs (24Hr): Vital Signs - 24 hr 05/29/23 20:28 05/30/23 08:09 05/30/23 09:44 Temperature 96.8 F 96.6 F L Pulse Rate 110 H 78 Respiratory Rate 18 16 Blood Pressure 114/55 L 123/71 124/69 Pulse Oximetry 96 94 Oxygen Delivery Method Room Air Room Air BMI result Body Mass Index 45.9 Labs 05/25/23 11:47 05/27/23 06:47 Labs: Laboratory Results - last 48 hr 05/29/23 05/29/23 05/30/23 06:21 14:15 06:29 POC Glucose 143 H 154 H Urine Color Yellow Urine Appearance Clear Urine pH 5.5 Ur Specific [place] 1.010 Urine Protein Negative Urine Glucose (UA) Negative Urine Ketones Negative Urine Blood Negative Urine Nitrite Negative Ur Leukocyte Esterase Small (1+) H Urine RBC 0-2 Urine WBC 11-20 H Ur Squamous Epith Cells 3-5 Urine Bacteria 4+ Hyaline Casts 0-2 Medications Medications Current Medications Acetaminophen (Acetaminophen 325 Mg Tablet) 650 mg PO Q6H PRN PRN Reason: Headache/Pain Mild Scale (1-3) Last Admin: 05/24/23 08:45 Dose: 650 mg Benztropine Mesylate (Benztropine Mesylate 1 Mg Tablet) 1 mg PO DAILY [facility] Last Admin: 05/30/23 09:45 Dose: 1 mg Clobazam (Clobazam 10 Mg Tablet) 10 mg PO BID [facility] Last Admin: 05/30/23 09:45 Dose: 10 mg Famotidine (Famotidine 20 Mg Tablet) 20 mg PO BEDTIME [facility] Last Admin: 05/29/23 20:31 Dose: 20 mg Haloperidol (Haloperidol 5 Mg Tablet) 10 mg PO DAILY [facility] Last Admin: 05/30/23 09:45 Dose: 10 mg Haloperidol Lactate (Haloperidol Lactate 5 Mg/Ml Vial) 10 mg IM DAILY PRN PRN Reason: refusal of PO Hydroxyzine HCl (Hydroxyzine Hcl 25 Mg Tablet) 25 mg PO Q6H PRN PRN Reason: Anxiety Last Admin: 05/24/23 01:30 Dose: 25 mg Levothyroxine Sodium (Levothyroxine Sodium 75 Mcg Tablet) 75 mcg PO DAILY@0600 [facility] Last Admin: 05/30/23 06:03 Dose: 75 mcg Lidocaine (Lidocaine 4 % Patch Adh..Patch) 1 patch TRANSDERMA DAILY [facility]; Protocol Last Admin: 05/30/23 09:48 Dose: 1 patch Lorazepam (Lorazepam 1 Mg Tablet) 1 mg PO Q6H PRN PRN Reason: severe anxiety Magnesium Hydroxide (Milk Of Magnesia 30 Ml Oral.Susp) 30 ml PO DAILY PRN PRN Reason: Constipation Last Admin: 05/26/23 20:16 Dose: 30 ml Metformin HCl (Metformin Hcl Er 500 Mg Tab.Er.24h) 500 mg PO DAILY@0800 [facility] Last Admin: 05/30/23 09:45 Dose: 500 mg Nystatin (Nystatin Powder 15 Gm Bottle) 1 appl TOPICAL BID [facility]; Protocol Omeprazole (Omeprazole 20 Mg Capsule.Dr) 20 mg PO DAILY@0800 [facility] Last Admin: 05/30/23 09:45 Dose: 20 mg Polyethylene Glycol (Polyethylene Glycol 3350 17 Gm Powd.Pack) 17 gm PO DAILY [facility] Last Admin: 05/30/23 09:51 Dose: 17 gm Risperidone (Risperidone 1 Mg Tablet) 1 mg PO BID [facility] Last Admin: 05/30/23 09:45 Dose: 1 mg Senna (Sennosides 8.6 Mg Tablet) 8.6 mg PO BEDTIME [facility] Last Admin: 05/29/23 20:31 Dose: 8.6 mg Sertraline HCl (Sertraline Hcl 100 Mg Tablet) 100 mg PO DAILY [facility] Last Admin: 05/30/23 09:44 Dose: 100 mg Spironolactone (Spironolactone 25 Mg Tablet) 25 mg PO DAILY [facility]; Protocol Last Admin: 05/30/23 09:44 Dose: 25 mg Torsemide (Torsemide 20 Mg Tablet) 60 mg PO MoWeFr [facility]; Protocol Last Admin: 05/29/23 08:59 Dose: 60 mg Trazodone HCl (Trazodone Hcl 50 Mg Tablet) 50 mg PO BEDTIME MRX1 PRN PRN Reason: Insomnia Last Admin: 05/25/23 20:24 Dose: 50 mg Zonisamide (Zonisamide 100 Mg Capsule) 200 mg PO TID [facility] Last Admin: 05/30/23 15:40 Dose: 200 mg Allergies Allergies Allergy/AdvReac Type Severity Reaction Status Date / Time ascorbic acid [Vitamin C] Allergy Unknown Unknown Verified 05/19/23 21:53 dexamethasone Allergy Unknown Verified 05/19/23 21:52 ibuprofen Allergy Unknown Verified 05/19/23 21:49 Penicillins Allergy Rash Verified 05/19/23 21:55 Assessment & Plan Assessment & Plan (1) Schizophrenia: Status: Acute Code(s): F20.9 - Schizophrenia, unspecified Plan The patient is an elderly female with a past history of schizophrenia who recently had medication changes and she was referred from her home to the emergency room due to exacerbation of delusions and paranoia. The patient had been admitted in the hospital a few weeks ago and sent to rehab for continuation of care and after being discharged home she was severely psychotic. She was brought to the emergency room and started on Haldol. 05/29 Patient with UA results positive for UTI, consulted with hospitalist and patient started on Ceftin. Patient a little hesitant to accept she had a UTI saying her urine is clear but agreed to start antibiotic. Denied AVH, denied SI. Grinding her teeth continually. Says she would like to know when she can discharge. Plan 1. Gather collateral information. The patient is a very poor historian but she is able to verbalize her needs. 2. Continue with Haldol as prescribed. 3. 15 minutes checks since the patient is able to contract for safety. 4. The patient refused all her medications today but she was able to take a few medications for seizures with encouragement. 5. Haldol with backup IM as per court order was ordered today. 6. Start Risperdal 0.5 p.o. b.i.d. on May 25 in the afternoon. On May 26 we are increasing up to 1 mg p.o. b.i.d. 7. Start MiraLax as per patient's request Patient educated on: diagnosis, medication risk/benefits and medical condition Informed Consent: understands, does not understand and further education needed Reason for continued inpatient stay Substantial Risk for: med/psych decompensation Time Spent With Patient Time: Total time managing care of this patient today ____ minutes.
[2023-05-30 20:00] VITALS: BP 144/63; PULSE 95; RESP 16; TEMP 35.9; O2SAT 95
[2023-05-30] MEDS: cefuroxime axetiL 500 MG TABLET PO (21:37)
[2023-05-30] MEDS: Sennosides 8.6 MG TABLET PO (21:38)
[2023-05-30] MEDS: Famotidine 20 MG TABLET PO (21:38)
[2023-05-30] MEDS: Nystatin Powder 15 GM BOTTLE 1 APPL TOPICAL (21:43)
[2023-05-31] MEDS: Levothyroxine Sodium 75 MCG TABLET PO (05:59)
[2023-05-31 06:03] LABS: Glucose, Whole Blood 138 mg/dL (60-115)
[2023-05-31 09:06] VITALS: BP 138/69; PULSE 106; RESP 16; TEMP 36.3; O2SAT 96
[2023-05-31 09:27] VITALS: BP 138/69
[2023-05-31] MEDS: Spironolactone 25 MG TABLET PO (09:27)
[2023-05-31] MEDS: Zonisamide 100 MG CAPSULE 200 MG PO ×3 (09:28→20:08)
[2023-05-31] MEDS: Nystatin Powder 15 GM BOTTLE 1 APPL TOPICAL ×2 (09:28→21:18)
[2023-05-31] MEDS: Sertraline HCL 100 MG TABLET PO (09:28)
[2023-05-31] MEDS: metFORMIN HCl ER 500 MG TAB.ER.24H PO (09:28)
[2023-05-31] MEDS: cefuroxime axetiL 500 MG TABLET PO ×2 (09:28→20:09)
[2023-05-31] MEDS: HaloperidoL 5 MG TABLET 10 MG PO (09:28)
[2023-05-31] MEDS: risperiDONE 1 MG TABLET PO ×2 (09:28→20:09)
[2023-05-31] MEDS: Omeprazole 20 MG CAPSULE.DR PO (09:28)
[2023-05-31] MEDS: Lidocaine 4 % Patch ADH..PATCH 1 PATCH TRANSDERMA (09:28)
[2023-05-31] MEDS: cloBAZam 10 MG TABLET PO ×2 (09:28→20:08)
[2023-05-31] MEDS: polyethylene glycoL 3350 17 GM POWD.PACK PO (09:29)
[2023-05-31] MEDS: Benztropine Mesylate 1 MG TABLET PO (09:35)
[2023-05-31 20:00] VITALS: BP 136/61; PULSE 94; RESP 18; TEMP 36.6; O2SAT 96
[2023-05-31] MEDS: Acetaminophen 325 MG TABLET 650 MG PO (20:07)
[2023-05-31] MEDS: Sennosides 8.6 MG TABLET PO (20:09)
[2023-05-31] MEDS: Famotidine 20 MG TABLET PO (20:09)
[2023-06-01] MEDS: Levothyroxine Sodium 75 MCG TABLET PO (06:05)
[2023-06-01 07:10] LABS: Glucose, Whole Blood 147 mg/dL (60-115)
[2023-06-01 07:45] VITALS: BP 124/57; PULSE 94; RESP 15; TEMP 37; O2SAT 94
--- NOTE | 2023-06-01 09:08 | HO.PSYCHPN ---
Subjective Subjective Date of Service: 05/31/23 Reason For Visit: Schizophrenia Interim History: Late entry note for patient seen on 05/31/2023 Met with patient; discussed with team Patient says that she is bored which is why she is doing coloring. Says she is really hoping to go home soon. Staff reports that she has been engaged, taking medications, good behavior; also they report she has been grinding her teeth much less which was encouraging. Yesterday Patient also started on nystatin for fungal infection on torso Mental Status Exam Mental Status Exam Patient Appearance: Appropriate Patient Orientation: Person, Place and Situation Level of Consciousness: Awake and Appropriate Patient Behavior: Guarded and Passive Mood Description: Calm Affect Description: Constricted Patient Cognition Impaired: Yes Ability to Follow Directions: Good Speech Pattern: Clear Hallucinations: None Delusions: Paranoid Ideation (hx of though none expressed) and Ideas of Reference Thought Process: Goal Oriented Thought Content: positive for [place] and positive for Poverty of Content Judgement: Fair Diagnostics Vital Signs (24Hr): Vital Signs - 24 hr 05/31/23 09:27 05/31/23 20:00 Temperature 97.9 F Pulse Rate 94 Respiratory Rate 18 Blood Pressure 138/69 136/61 Pulse Oximetry 96 Oxygen Delivery Method Room Air BMI result Body Mass Index 45.9 Labs 05/25/23 11:47 05/27/23 06:47 Labs: Laboratory Results - last 48 hr 05/31/23 06/01/23 05:55 07:06 POC Glucose 138 H 147 H Medications Medications Current Medications Acetaminophen (Acetaminophen 325 Mg Tablet) 650 mg PO Q6H PRN PRN Reason: Headache/Pain Mild Scale (1-3) Last Admin: 05/31/23 20:07 Dose: 650 mg Benztropine Mesylate (Benztropine Mesylate 1 Mg Tablet) 1 mg PO DAILY [facility] Last Admin: 05/31/23 09:35 Dose: 1 mg Cefuroxime Axetil (Cefuroxime Axetil 500 Mg Tablet) 500 mg PO BID [facility] Stop: 06/06/23 11:00 Last Admin: 05/31/23 20:09 Dose: 500 mg Clobazam (Clobazam 10 Mg Tablet) 10 mg PO BID [facility] Last Admin: 05/31/23 20:08 Dose: 10 mg Famotidine (Famotidine 20 Mg Tablet) 20 mg PO BEDTIME [facility] Last Admin: 05/31/23 20:09 Dose: 20 mg Haloperidol (Haloperidol 5 Mg Tablet) 10 mg PO DAILY [facility] Last Admin: 05/31/23 09:28 Dose: 10 mg Haloperidol Lactate (Haloperidol Lactate 5 Mg/Ml Vial) 10 mg IM DAILY PRN PRN Reason: refusal of PO Hydroxyzine HCl (Hydroxyzine Hcl 25 Mg Tablet) 25 mg PO Q6H PRN PRN Reason: Anxiety Last Admin: 05/24/23 01:30 Dose: 25 mg Levothyroxine Sodium (Levothyroxine Sodium 75 Mcg Tablet) 75 mcg PO DAILY@0600 [facility] Last Admin: 06/01/23 06:05 Dose: 75 mcg Lidocaine (Lidocaine 4 % Patch Adh..Patch) 1 patch TRANSDERMA DAILY [facility]; Protocol Last Admin: 05/31/23 09:28 Dose: 1 patch Lorazepam (Lorazepam 1 Mg Tablet) 1 mg PO Q6H PRN PRN Reason: severe anxiety Magnesium Hydroxide (Milk Of Magnesia 30 Ml Oral.Susp) 30 ml PO DAILY PRN PRN Reason: Constipation Last Admin: 05/26/23 20:16 Dose: 30 ml Metformin HCl (Metformin Hcl Er 500 Mg Tab.Er.24h) 500 mg PO DAILY@0800 [facility] Last Admin: 05/31/23 09:28 Dose: 500 mg Nystatin (Nystatin Powder 15 Gm Bottle) 1 appl TOPICAL BID [facility]; Protocol Last Admin: 05/31/23 21:18 Dose: 1 appl Omeprazole (Omeprazole 20 Mg Capsule.Dr) 20 mg PO DAILY@0800 [facility] Last Admin: 05/31/23 09:28 Dose: 20 mg Polyethylene Glycol (Polyethylene Glycol 3350 17 Gm Powd.Pack) 17 gm PO DAILY [facility] Last Admin: 05/31/23 09:29 Dose: 17 gm Risperidone (Risperidone 1 Mg Tablet) 1 mg PO BID [facility] Last Admin: 05/31/23 20:09 Dose: 1 mg Senna (Sennosides 8.6 Mg Tablet) 8.6 mg PO BEDTIME [facility] Last Admin: 05/31/23 20:09 Dose: 8.6 mg Sertraline HCl (Sertraline Hcl 100 Mg Tablet) 100 mg PO DAILY [facility] Last Admin: 05/31/23 09:28 Dose: 100 mg Spironolactone (Spironolactone 25 Mg Tablet) 25 mg PO DAILY [facility]; Protocol Last Admin: 05/31/23 09:27 Dose: 25 mg Torsemide (Torsemide 20 Mg Tablet) 60 mg PO MoWeFr [facility]; Protocol Last Admin: 05/29/23 08:59 Dose: 60 mg Trazodone HCl (Trazodone Hcl 50 Mg Tablet) 50 mg PO BEDTIME MRX1 PRN PRN Reason: Insomnia Last Admin: 05/25/23 20:24 Dose: 50 mg Zonisamide (Zonisamide 100 Mg Capsule) 200 mg PO TID [facility] Last Admin: 05/31/23 20:08 Dose: 200 mg Allergies Allergies Allergy/AdvReac Type Severity Reaction Status Date / Time ascorbic acid [Vitamin C] Allergy Unknown Unknown Verified 05/19/23 21:53 dexamethasone Allergy Unknown Verified 05/19/23 21:52 ibuprofen Allergy Unknown Verified 05/19/23 21:49 Penicillins Allergy Rash Verified 05/19/23 21:55 Assessment & Plan Assessment & Plan (1) Schizophrenia: Status: Acute Code(s): F20.9 - Schizophrenia, unspecified Plan The patient is an elderly female with a past history of schizophrenia who recently had medication changes and she was referred from her home to the emergency room due to exacerbation of delusions and paranoia. The patient had been admitted in the hospital a few weeks ago and sent to rehab for continuation of care and after being discharged home she was severely psychotic. She was brought to the emergency room and started on Haldol. 05/29 Patient with UA results positive for UTI, consulted with hospitalist and patient started on Ceftin. Patient a little hesitant to accept she had a UTI saying her urine is clear but agreed to start antibiotic. Denied AVH, denied SI. Grinding her teeth continually. Says she would like to know when she can discharge. -Ceftin 100mg bid for 7 days 05/30 Patient says that she is bored which is why she is doing coloring. Says she is really hoping to go home soon. Staff reports that she has been engaged, taking medications, good behavior; also they report she has been grinding her teeth much less which was encouraging. Yesterday Patient also started on nystatin for fungal infection on torso Plan 1. Gather collateral information. The patient is a very poor historian but she is able to verbalize her needs. 2. Continue with Haldol as prescribed. 3. 15 minutes checks since the patient is able to contract for safety. 4. The patient refused all her medications today but she was able to take a few medications for seizures with encouragement. 5. Haldol with backup IM as per court order was ordered today. 6. Start Risperdal 0.5 p.o. b.i.d. on May 25 in the afternoon. On May 26 we are increasing up to 1 mg p.o. b.i.d. 7. Start MiraLax as per patient's request Patient educated on: diagnosis, medication risk/benefits and medical condition Informed Consent: understands, does not understand and further education needed Reason for continued inpatient stay Substantial Risk for: med/psych decompensation Time Spent With Patient Time: Total time managing care of this patient today ____ minutes.
[2023-06-01] MEDS: risperiDONE 1 MG TABLET PO ×2 (10:04→20:50)
[2023-06-01] MEDS: Sertraline HCL 100 MG TABLET PO (10:04)
[2023-06-01 10:05] VITALS: BP 124/57
[2023-06-01] MEDS: HaloperidoL 5 MG TABLET 10 MG PO (10:05)
[2023-06-01] MEDS: cefuroxime axetiL 500 MG TABLET PO ×2 (10:06→20:50)
[2023-06-01] MEDS: cloBAZam 10 MG TABLET PO ×2 (10:06→20:50)
[2023-06-01] MEDS: Omeprazole 20 MG CAPSULE.DR PO (10:06)
[2023-06-01] MEDS: Benztropine Mesylate 1 MG TABLET PO (10:06)
[2023-06-01] MEDS: Zonisamide 100 MG CAPSULE 200 MG PO ×3 (10:06→20:50)
[2023-06-01] MEDS: polyethylene glycoL 3350 17 GM POWD.PACK PO (10:07)
[2023-06-01] MEDS: metFORMIN HCl ER 500 MG TAB.ER.24H PO (10:07)
[2023-06-01] MEDS: Lidocaine 4 % Patch ADH..PATCH 1 PATCH TRANSDERMA (10:08)
[2023-06-01] MEDS: Nystatin Powder 15 GM BOTTLE 1 APPL TOPICAL ×2 (10:08→21:28)
[2023-06-01 12:17] VITALS: BP 135/70
[2023-06-01] MEDS: Torsemide 20 MG TABLET 60 MG PO (12:17)
[2023-06-01] MEDS: Acetaminophen 325 MG TABLET 650 MG PO (12:23)
--- NOTE | 2023-06-01 14:23 | P.PNPSI_ITS ---
Subjective Subjective Date of Service: 06/01/23 Reason For Visit: Schizophrenia Subjective Notes: Sommers Order and Conditional Voluntary Healthcare Proxy: Yes Guardianship: Yes Interim History: The nursing staff reported the patient had been compliant with treatment she remains with flat affect taking her medications. She slept 8 hours. The social scientist reported that her wants to have long-acting injectables. We explored the possibility of Invega Sustenna and Risperdal Consta but unfortunately the cai that he is over 700 dollars per dose. On interview the patient denies new symptoms she states that she is doing fairly well. The occupational therapist reported that she had been more focus and awake in groups. Mental Status Exam Mental Status Exam Patient Appearance: Appropriate Patient Orientation: Person and Situation Level of Consciousness: Awake Patient Behavior: Guarded and Passive Mood Description: Withdrawn Affect Description: Constricted Patient Cognition Impaired: Yes Ability to Follow Directions: Good Speech Pattern: Clear Hallucinations: None Delusions: Being Controlled and Paranoid Ideation Thought Process: Distracted Thought Content: positive for [place] and positive for Poverty of Content Judgement: Poor Diagnostics Vital Signs (24Hr): Vital Signs - 24 hr 05/31/23 20:00 06/01/23 07:45 06/01/23 10:05 Temperature 97.9 F 98.6 F Pulse Rate 94 94 Respiratory Rate 18 15 Blood Pressure 136/61 124/57 L 124/57 L Pulse Oximetry 96 94 Oxygen Delivery Method Room Air Room Air 06/01/23 12:17 Temperature Pulse Rate Respiratory Rate Blood Pressure 135/70 Pulse Oximetry Oxygen Delivery Method BMI result Body Mass Index 45.9 Labs 05/25/23 11:47 05/27/23 06:47 Labs: Laboratory Results - last 48 hr 05/31/23 06/01/23 05:55 07:06 POC Glucose 138 H 147 H Imaging Radiology Impressions: ITS Impressions Upper GI/Barium Swallow X-Ray 05/26/23 10:31 IMPRESSION: 1. Premature spillage into the vallecula and pyriform sinuses with delayed swallow mechanism. Ballooning of the hypopharynx. 2. Trace laryngeal penetration with thick barium. 3. Limited evaluation of the esophagus, however, peristalsis is disorganized. 4. Limited evaluation of the stomach. There appear to be multiple areas of contrast pooling in the fundus and body the stomach that may represent small superficial aphthous ulcers. Recommend correlation EGD. This procedure was performed by Carrillo Morillo PA-C, and supervised by Dr. Huston Medications Medications Current Medications Acetaminophen (Acetaminophen 325 Mg Tablet) 650 mg PO Q6H PRN PRN Reason: Headache/Pain Mild Scale (1-3) Last Admin: 06/01/23 12:23 Dose: 650 mg Benztropine Mesylate (Benztropine Mesylate 1 Mg Tablet) 1 mg PO DAILY [facility]S [facility] Last Admin: 06/01/23 10:06 Dose: 1 mg Cefuroxime Axetil (Cefuroxime Axetil 500 Mg Tablet) 500 mg PO BID [facility] Stop: 06/06/23 11:00 Last Admin: 06/01/23 10:06 Dose: 500 mg Clobazam (Clobazam 10 Mg Tablet) 10 mg PO BID [facility] Last Admin: 06/01/23 10:06 Dose: 10 mg Famotidine (Famotidine 20 Mg Tablet) 20 mg PO BEDTIME [facility] Last Admin: 05/31/23 20:09 Dose: 20 mg Haloperidol (Haloperidol 5 Mg Tablet) 10 mg PO DAILY [facility] Last Admin: 06/01/23 10:05 Dose: 10 mg Haloperidol Lactate (Haloperidol Lactate 5 Mg/Ml Vial) 10 mg IM DAILY PRN PRN Reason: refusal of PO Hydroxyzine HCl (Hydroxyzine Hcl 25 Mg Tablet) 25 mg PO Q6H PRN PRN Reason: Anxiety Last Admin: 05/24/23 01:30 Dose: 25 mg Levothyroxine Sodium (Levothyroxine Sodium 75 Mcg Tablet) 75 mcg PO DAILY@0600 [facility] 234 [facility] Last Admin: 06/01/23 06:05 Dose: 75 mcg Lidocaine (Lidocaine 4 % Patch Adh..Patch) 1 patch TRANSDERMA DAILY [facility]; Protocol Last Admin: 06/01/23 10:08 Dose: 1 patch Lorazepam (Lorazepam 1 Mg Tablet) 1 mg PO Q6H PRN PRN Reason: severe anxiety Magnesium Hydroxide (Milk Of Magnesia 30 Ml Oral.Susp) 30 ml PO DAILY PRN PRN Reason: Constipation Last Admin: 05/26/23 20:16 Dose: 30 ml Metformin HCl (Metformin Hcl Er 500 Mg Tab.Er.24h) 500 mg PO DAILY@0800 [facility] 234 [facility] Last Admin: 06/01/23 10:07 Dose: 500 mg Nystatin (Nystatin Powder 15 Gm Bottle) 1 appl TOPICAL BID [facility]; Protocol Last Admin: 06/01/23 10:08 Dose: 1 appl Omeprazole (Omeprazole 20 Mg Capsule.Dr) 20 mg PO DAILY@0800 [facility] 234 [facility]S [facility] Last Admin: 06/01/23 10:06 Dose: 20 mg Polyethylene Glycol (Polyethylene Glycol 3350 17 Gm Powd.Pack) 17 gm PO DAILY [facility] 234 [facility]S [facility] Last Admin: 06/01/23 10:07 Dose: 17 gm Risperidone (Risperidone 1 Mg Tablet) 1 mg PO BID [facility] 234 [facility] Last Admin: 06/01/23 10:04 Dose: 1 mg Senna (Sennosides 8.6 Mg Tablet) 8.6 mg PO BEDTIME [facility] 234 [facility]S [facility] Last Admin: 05/31/23 20:09 Dose: 8.6 mg Sertraline HCl (Sertraline Hcl 100 Mg Tablet) 100 mg PO DAILY [facility] 234 [facility]S [facility] Last Admin: 06/01/23 10:04 Dose: 100 mg Spironolactone (Spironolactone 25 Mg Tablet) 25 mg PO DAILY [facility] 234 [facility]S [facility]; Protocol Last Admin: 06/01/23 10:05 Dose: Not Given Torsemide (Torsemide 20 Mg Tablet) 60 mg PO MoWeFr [facility]S [facility]CLUDE 234 BEDS [facility]; Protocol Last Admin: 06/01/23 12:17 Dose: 60 mg Trazodone HCl (Trazodone Hcl 50 Mg Tablet) 50 mg PO BEDTIME MRX1 PRN PRN Reason: Insomnia Last Admin: 05/25/23 20:24 Dose: 50 mg Zonisamide (Zonisamide 100 Mg Capsule) 200 mg PO TID [facility] 234 [facility]S [facility] Last Admin: 06/01/23 10:06 Dose: 200 mg Allergies Allergies Allergy/AdvReac Type Severity Reaction Status Date / Time ascorbic acid [Vitamin C] Allergy Unknown Unknown Verified 05/19/23 21:53 dexamethasone Allergy Unknown Verified 05/19/23 21:52 ibuprofen Allergy Unknown Verified 05/19/23 21:49 Penicillins Allergy Rash Verified 05/19/23 21:55 Assessment & Plan Assessment & Plan (1) Schizophrenia: Status: Acute Code(s): F20.9 - Schizophrenia, unspecified Plan The patient is an elderly female with a past history of schizophrenia who recently had medication changes and she was referred from her home to the emergency room due to exacerbation of delusions and paranoia. The patient had been admitted in the hospital a few weeks ago and sent to rehab for continuation of care and after being discharged home she was severely psychotic. She was brought to the emergency room and started on Haldol. 05/29 Patient with UA results positive for UTI, consulted with hospitalist and patient started on Ceftin. Patient a little hesitant to accept she had a UTI saying her urine is clear but agreed to start antibiotic. Denied AVH, denied SI. Grinding her teeth continually. Says she would like to know when she can discharge. -Ceftin 100mg bid for 7 days 05/30 Patient says that she is bored which is why she is doing coloring. Says she is really hoping to go home soon. Staff reports that she has been engaged, taking medications, good behavior; also they report she has been grinding her teeth much less which was encouraging. Yesterday Patient also started on nystatin for fungal infection on torso Plan 1. Gather collateral information. The patient is a very poor historian but she is able to verbalize her needs. 2. Continue with Haldol as prescribed. 3. 15 minutes checks since the patient is able to contract for safety. 4. The patient refused all her medications today but she was able to take a few medications for seizures with encouragement. 5. Haldol with backup IM as per court order was ordered today. 6. Start Risperdal 0.5 p.o. b.i.d. on May 25 in the afternoon. On May 26 we are increasing up to 1 mg p.o. b.i.d. later on we increased up to 2 mg p.o. b.i.d. with no evidence of side effects. 7. Start MiraLax as per patient's request Reason for continued inpatient stay Substantial Risk for: inability to function, rapid decompensation and med/psych decompensation Time Spent With Patient Time: Total time managing care of this patient today __20__ minutes.
[2023-06-01 20:15] VITALS: BP 114/59; PULSE 99; RESP 18; TEMP 36; O2SAT 97
[2023-06-01] MEDS: Famotidine 20 MG TABLET PO (20:50)
[2023-06-01] MEDS: Sennosides 8.6 MG TABLET PO (20:50)
[2023-06-02] MEDS: Levothyroxine Sodium 75 MCG TABLET PO (05:31)
[2023-06-02 05:53] LABS: Glucose, Whole Blood 173 mg/dL (60-115)
[2023-06-02 08:28] VITALS: BP 137/63; PULSE 95; RESP 16; TEMP 36.1; O2SAT 94
[2023-06-02] MEDS: cloBAZam 10 MG TABLET PO ×2 (10:04→20:17)
[2023-06-02] MEDS: Spironolactone 25 MG TABLET PO (10:04)
[2023-06-02] MEDS: Sertraline HCL 100 MG TABLET PO (10:04)
[2023-06-02] MEDS: Zonisamide 100 MG CAPSULE 200 MG PO ×3 (10:04→20:17)
[2023-06-02] MEDS: cefuroxime axetiL 500 MG TABLET PO ×2 (10:05→20:17)
[2023-06-02] MEDS: Omeprazole 20 MG CAPSULE.DR PO (10:05)
[2023-06-02] MEDS: Benztropine Mesylate 1 MG TABLET PO (10:05)
[2023-06-02] MEDS: risperiDONE 1 MG TABLET PO ×2 (10:05→20:17)
[2023-06-02] MEDS: metFORMIN HCl ER 500 MG TAB.ER.24H PO (10:05)
[2023-06-02] MEDS: HaloperidoL 5 MG TABLET 10 MG PO (10:05)
[2023-06-02] MEDS: polyethylene glycoL 3350 17 GM POWD.PACK PO (10:08)
[2023-06-02] MEDS: Lidocaine 4 % Patch ADH..PATCH 1 PATCH TRANSDERMA (10:09)
[2023-06-02] MEDS: Nystatin Powder 15 GM BOTTLE 1 APPL TOPICAL ×2 (10:20→20:20)
--- NOTE | 2023-06-02 12:20 | HO.PSYCHPN ---
Subjective Subjective Date of Service: 06/02/23 Reason For Visit: Schizophrenia Subjective Notes: Conditional Voluntary Interim History: Pt slept most of the night. she reports having back pain but otherwise she reports doing well. She denies SI/HI. Her affect is constricted and ambulated with some difficulty. She is taking medications as prescribed. No behavioral concerns. Review of Systems Review of Systems Nothing acute Mental Status Exam Mental Status Exam Patient Appearance: Appropriate Patient Orientation: Person and Situation Level of Consciousness: Awake Patient Behavior: Guarded and Passive Mood Description: Withdrawn Affect Description: Constricted Patient Cognition Impaired: Yes Ability to Follow Directions: Good Speech Pattern: Clear Diagnostics Vital Signs (24Hr): Vital Signs - 24 hr 06/01/23 20:15 06/02/23 08:28 Temperature 96.8 F 96.9 F Pulse Rate 99 95 Respiratory Rate 18 16 Blood Pressure 114/59 L 137/63 Pulse Oximetry 97 94 Oxygen Delivery Method Room Air Room Air BMI result Body Mass Index 45.9 Labs 05/25/23 11:47 05/27/23 06:47 Labs: Laboratory Results - last 48 hr 06/01/23 06/02/23 07:06 05:36 POC Glucose 147 H 173 H Imaging Radiology Impressions: ITS Impressions Upper GI/Barium Swallow X-Ray 05/26/23 10:31 IMPRESSION: 1. Premature spillage into the vallecula and pyriform sinuses with delayed swallow mechanism. Ballooning of the hypopharynx. 2. Trace laryngeal penetration with thick barium. 3. Limited evaluation of the esophagus, however, peristalsis is disorganized. 4. Limited evaluation of the stomach. There appear to be multiple areas of contrast pooling in the fundus and body the stomach that may represent small superficial aphthous ulcers. Recommend correlation EGD. This procedure was performed by Carrillo Morillo PA-C, and supervised by Dr. Huston Medications Medications Current Medications Acetaminophen (Acetaminophen 325 Mg Tablet) 650 mg PO Q6H PRN PRN Reason: Headache/Pain Mild Scale (1-3) Last Admin: 06/01/23 12:23 Dose: 650 mg Benztropine Mesylate (Benztropine Mesylate 1 Mg Tablet) 1 mg PO DAILY [facility] Last Admin: 06/02/23 10:05 Dose: 1 mg Cefuroxime Axetil (Cefuroxime Axetil 500 Mg Tablet) 500 mg PO BID [facility] Stop: 06/06/23 11:00 Last Admin: 06/02/23 10:05 Dose: 500 mg Clobazam (Clobazam 10 Mg Tablet) 10 mg PO BID [facility] Last Admin: 06/02/23 10:04 Dose: 10 mg Famotidine (Famotidine 20 Mg Tablet) 20 mg PO BEDTIME [facility] Last Admin: 06/01/23 20:50 Dose: 20 mg Haloperidol (Haloperidol 5 Mg Tablet) 10 mg PO DAILY [facility] Last Admin: 06/02/23 10:05 Dose: 10 mg Haloperidol Lactate (Haloperidol Lactate 5 Mg/Ml Vial) 10 mg IM DAILY PRN PRN Reason: refusal of PO Hydroxyzine HCl (Hydroxyzine Hcl 25 Mg Tablet) 25 mg PO Q6H PRN PRN Reason: Anxiety Last Admin: 05/24/23 01:30 Dose: 25 mg Levothyroxine Sodium (Levothyroxine Sodium 75 Mcg Tablet) 75 mcg PO DAILY@0600 [facility] Last Admin: 06/02/23 05:31 Dose: 75 mcg Lidocaine (Lidocaine 4 % Patch Adh..Patch) 1 patch TRANSDERMA DAILY [facility]; Protocol Last Admin: 06/02/23 10:09 Dose: 1 patch Lorazepam (Lorazepam 1 Mg Tablet) 1 mg PO Q6H PRN PRN Reason: severe anxiety Magnesium Hydroxide (Milk Of Magnesia 30 Ml Oral.Susp) 30 ml PO DAILY PRN PRN Reason: Constipation Last Admin: 05/26/23 20:16 Dose: 30 ml Metformin HCl (Metformin Hcl Er 500 Mg Tab.Er.24h) 500 mg PO DAILY@0800 [facility] Last Admin: 06/02/23 10:05 Dose: 500 mg Nystatin (Nystatin Powder 15 Gm Bottle) 1 appl TOPICAL BID [facility]; Protocol Last Admin: 06/02/23 10:20 Dose: 1 appl Omeprazole (Omeprazole 20 Mg Capsule.Dr) 20 mg PO DAILY@0800 [facility] Last Admin: 06/02/23 10:05 Dose: 20 mg Polyethylene Glycol (Polyethylene Glycol 3350 17 Gm Powd.Pack) 17 gm PO DAILY [facility] Last Admin: 06/02/23 10:08 Dose: 17 gm Risperidone (Risperidone 1 Mg Tablet) 1 mg PO BID [facility] Last Admin: 06/02/23 10:05 Dose: 1 mg Senna (Sennosides 8.6 Mg Tablet) 8.6 mg PO BEDTIME [facility] Last Admin: 06/01/23 20:50 Dose: 8.6 mg Sertraline HCl (Sertraline Hcl 100 Mg Tablet) 100 mg PO DAILY [facility] Last Admin: 06/02/23 10:04 Dose: 100 mg Spironolactone (Spironolactone 25 Mg Tablet) 25 mg PO DAILY [facility]; Protocol Last Admin: 06/02/23 10:04 Dose: 25 mg Torsemide (Torsemide 20 Mg Tablet) 60 mg PO MoWeFr [facility]; Protocol Last Admin: 06/01/23 12:17 Dose: 60 mg Trazodone HCl (Trazodone Hcl 50 Mg Tablet) 50 mg PO BEDTIME MRX1 PRN PRN Reason: Insomnia Last Admin: 05/25/23 20:24 Dose: 50 mg Zonisamide (Zonisamide 100 Mg Capsule) 200 mg PO TID [facility] Last Admin: 06/02/23 10:04 Dose: 200 mg Allergies Allergies Allergy/AdvReac Type Severity Reaction Status Date / Time ascorbic acid [Vitamin C] Allergy Unknown Unknown Verified 05/19/23 21:53 dexamethasone Allergy Unknown Verified 05/19/23 21:52 ibuprofen Allergy Unknown Verified 05/19/23 21:49 Penicillins Allergy Rash Verified 05/19/23 21:55 Assessment & Plan Assessment & Plan (1) Schizophrenia: Status: Acute Code(s): F20.9 - Schizophrenia, unspecified Plan The patient is an elderly female with a past history of schizophrenia who recently had medication changes and she was referred from her home to the emergency room due to exacerbation of delusions and paranoia. The patient had been admitted in the hospital a few weeks ago and sent to rehab for continuation of care and after being discharged home she was severely psychotic. She was brought to the emergency room and started on Haldol. 05/29 Patient with UA results positive for UTI, consulted with hospitalist and patient started on Ceftin. Patient a little hesitant to accept she had a UTI saying her urine is clear but agreed to start antibiotic. Denied AVH, denied SI. Grinding her teeth continually. Says she would like to know when she can discharge. -Ceftin 100mg bid for 7 days 05/30 Patient says that she is bored which is why she is doing coloring. Says she is really hoping to go home soon. Staff reports that she has been engaged, taking medications, good behavior; also they report she has been grinding her teeth much less which was encouraging. Yesterday Patient also started on nystatin for fungal infection on torso Plan 06/01 continue tx Reason for continued inpatient stay Substantial Risk for: inability to function Time Spent With Patient Time: Total time managing care of this patient today ____ minutes.
[2023-06-02] MEDS: Famotidine 20 MG TABLET PO (20:17)
[2023-06-02] MEDS: Sennosides 8.6 MG TABLET PO (20:17)
[2023-06-02 21:13] VITALS: BP 145/66; PULSE 101; RESP 16; TEMP 36.6; O2SAT 94
[2023-06-03] MEDS: Levothyroxine Sodium 75 MCG TABLET PO (05:48)
[2023-06-03 06:00] LABS: Glucose, Whole Blood 167 mg/dL (60-115)
[2023-06-03 08:26] LABS: Creatinine Clr Calc Pharmacy 65.5; Estimated Glomerular Filt Rate > 60
--- NOTE | 2023-06-03 08:47 | P.PNPSI_ITS ---
Subjective Subjective Date of Service: 06/03/23 Reason For Visit: Schizophrenia Subjective Notes: Conditional Voluntary Interim History: Pt slept most of the night. she continues to report back pain, in some noticeable distress due to this. Scheduled tylenol TID. She denies SI/HI. Her affect is constricted and ambulated with some difficulty. She is taking medications as prescribed. No behavioral concerns. Review of Systems Review of Systems Nothing acute Mental Status Exam Mental Status Exam Patient Appearance: Appropriate Patient Orientation: Person and Situation Level of Consciousness: Awake Patient Behavior: Guarded and Passive Mood Description: Withdrawn Affect Description: Constricted Patient Cognition Impaired: Yes Ability to Follow Directions: Good Speech Pattern: Clear Diagnostics Vital Signs (24Hr): Vital Signs - 24 hr 06/02/23 21:13 Temperature 97.8 F Pulse Rate 101 H Respiratory Rate 16 Blood Pressure 145/66 H Pulse Oximetry 94 Oxygen Delivery Method Room Air BMI result Body Mass Index 45.9 Labs 05/25/23 11:47 06/03/23 08:01 Labs: Laboratory Results - last 48 hr 06/02/23 06/03/23 06/03/23 05:36 05:51 08:01 Creatinine 0.92 Estim Creat Clear Calc 65.5 Estimated GFR > 60 POC Glucose 173 H 167 H Imaging Radiology Impressions: ITS Impressions Upper GI/Barium Swallow X-Ray 05/26/23 10:31 IMPRESSION: 1. Premature spillage into the vallecula and pyriform sinuses with delayed swallow mechanism. Ballooning of the hypopharynx. 2. Trace laryngeal penetration with thick barium. 3. Limited evaluation of the esophagus, however, peristalsis is disorganized. 4. Limited evaluation of the stomach. There appear to be multiple areas of contrast pooling in the fundus and body the stomach that may represent small superficial aphthous ulcers. Recommend correlation EGD. This procedure was performed by Carrillo Morillo PA-C, and supervised by Dr. Huston Medications Medications Current Medications Acetaminophen (Acetaminophen 325 Mg Tablet) 650 mg PO Q6H PRN PRN Reason: Headache/Pain Mild Scale (1-3) Last Admin: 06/01/23 12:23 Dose: 650 mg Benztropine Mesylate (Benztropine Mesylate 1 Mg Tablet) 1 mg PO DAILY [facility] Last Admin: 06/02/23 10:05 Dose: 1 mg Cefuroxime Axetil (Cefuroxime Axetil 500 Mg Tablet) 500 mg PO BID [facility] Stop: 06/06/23 11:00 Last Admin: 06/02/23 20:17 Dose: 500 mg Clobazam (Clobazam 10 Mg Tablet) 10 mg PO BID [facility] Last Admin: 06/02/23 20:17 Dose: 10 mg Famotidine (Famotidine 20 Mg Tablet) 20 mg PO BEDTIME [facility] Last Admin: 06/02/23 20:17 Dose: 20 mg Haloperidol (Haloperidol 5 Mg Tablet) 10 mg PO DAILY [facility] Last Admin: 06/02/23 10:05 Dose: 10 mg Haloperidol Lactate (Haloperidol Lactate 5 Mg/Ml Vial) 10 mg IM DAILY PRN PRN Reason: refusal of PO Hydroxyzine HCl (Hydroxyzine Hcl 25 Mg Tablet) 25 mg PO Q6H PRN PRN Reason: Anxiety Last Admin: 05/24/23 01:30 Dose: 25 mg Levothyroxine Sodium (Levothyroxine Sodium 75 Mcg Tablet) 75 mcg PO DAILY@0600 [facility] Last Admin: 06/03/23 05:48 Dose: 75 mcg Lidocaine (Lidocaine 4 % Patch Adh..Patch) 1 patch TRANSDERMA DAILY [facility]; Protocol Last Admin: 06/02/23 10:09 Dose: 1 patch Lorazepam (Lorazepam 1 Mg Tablet) 1 mg PO Q6H PRN PRN Reason: severe anxiety Magnesium Hydroxide (Milk Of Magnesia 30 Ml Oral.Susp) 30 ml PO DAILY PRN PRN Reason: Constipation Last Admin: 05/26/23 20:16 Dose: 30 ml Metformin HCl (Metformin Hcl Er 500 Mg Tab.Er.24h) 500 mg PO DAILY@0800 [facility] Last Admin: 06/02/23 10:05 Dose: 500 mg Nystatin (Nystatin Powder 15 Gm Bottle) 1 appl TOPICAL BID [facility]; Protocol Last Admin: 06/02/23 20:20 Dose: 1 appl Omeprazole (Omeprazole 20 Mg Capsule.Dr) 20 mg PO DAILY@0800 [facility] Last Admin: 06/02/23 10:05 Dose: 20 mg Polyethylene Glycol (Polyethylene Glycol 3350 17 Gm Powd.Pack) 17 gm PO DAILY [facility] Last Admin: 06/02/23 10:08 Dose: 17 gm Risperidone (Risperidone 1 Mg Tablet) 1 mg PO BID [facility] Last Admin: 06/02/23 20:17 Dose: 1 mg Senna (Sennosides 8.6 Mg Tablet) 8.6 mg PO BEDTIME [facility] Last Admin: 06/02/23 20:17 Dose: 8.6 mg Sertraline HCl (Sertraline Hcl 100 Mg Tablet) 100 mg PO DAILY [facility] Last Admin: 06/02/23 10:04 Dose: 100 mg Spironolactone (Spironolactone 25 Mg Tablet) 25 mg PO DAILY [facility]; Protocol Last Admin: 06/02/23 10:04 Dose: 25 mg Torsemide (Torsemide 20 Mg Tablet) 60 mg PO MoWeFr [facility]; Protocol Last Admin: 06/01/23 12:17 Dose: 60 mg Trazodone HCl (Trazodone Hcl 50 Mg Tablet) 50 mg PO BEDTIME MRX1 PRN PRN Reason: Insomnia Last Admin: 05/25/23 20:24 Dose: 50 mg Zonisamide (Zonisamide 100 Mg Capsule) 200 mg PO TID [facility] Last Admin: 06/02/23 20:17 Dose: 200 mg Allergies Allergies Allergy/AdvReac Type Severity Reaction Status Date / Time ascorbic acid [Vitamin C] Allergy Unknown Unknown Verified 05/19/23 21:53 dexamethasone Allergy Unknown Verified 05/19/23 21:52 ibuprofen Allergy Unknown Verified 05/19/23 21:49 Penicillins Allergy Rash Verified 05/19/23 21:55 Assessment & Plan Assessment & Plan (1) Schizophrenia: Status: Acute Code(s): F20.9 - Schizophrenia, unspecified Plan The patient is an elderly female with a past history of schizophrenia who recently had medication changes and she was referred from her home to the emergency room due to exacerbation of delusions and paranoia. The patient had been admitted in the hospital a few weeks ago and sent to rehab for continuation of care and after being discharged home she was severely psychotic. She was brought to the emergency room and started on Haldol. 05/29 Patient with UA results positive for UTI, consulted with hospitalist and patient started on Ceftin. Patient a little hesitant to accept she had a UTI saying her urine is clear but agreed to start antibiotic. Denied AVH, denied SI. Grinding her teeth continually. Says she would like to know when she can discharge. -Ceftin 100mg bid for 7 days 05/30 Patient says that she is bored which is why she is doing coloring. Says she is really hoping to go home soon. Staff reports that she has been engaged, taking medications, good behavior; also they report she has been grinding her teeth much less which was encouraging. Yesterday Patient also started on nystatin for fungal infection on torso Plan 06/01 continue tx 06/02 added scheduled tylenol for back pain. Reason for continued inpatient stay Substantial Risk for: inability to function Time Spent With Patient Time: Total time managing care of this patient today ____ minutes.
[2023-06-03 08:57] VITALS: BP 135/68; PULSE 89; RESP 17; TEMP 36.2; O2SAT 96
[2023-06-03] MEDS: Omeprazole 20 MG CAPSULE.DR PO (09:51)
[2023-06-03] MEDS: Spironolactone 25 MG TABLET PO (09:51)
[2023-06-03] MEDS: Zonisamide 100 MG CAPSULE 200 MG PO ×3 (09:51→20:58)
[2023-06-03] MEDS: risperiDONE 1 MG TABLET PO ×2 (09:52→20:59)
[2023-06-03] MEDS: Benztropine Mesylate 1 MG TABLET PO (09:52)
[2023-06-03] MEDS: metFORMIN HCl ER 500 MG TAB.ER.24H PO (09:52)
[2023-06-03] MEDS: HaloperidoL 5 MG TABLET 10 MG PO (09:52)
[2023-06-03] MEDS: cefuroxime axetiL 500 MG TABLET PO ×2 (09:52→20:58)
[2023-06-03] MEDS: cloBAZam 10 MG TABLET PO ×2 (09:52→20:58)
[2023-06-03] MEDS: Sertraline HCL 100 MG TABLET PO (09:52)
[2023-06-03] MEDS: Lidocaine 4 % Patch ADH..PATCH 1 PATCH TRANSDERMA (09:55)
[2023-06-03] MEDS: Acetaminophen 325 MG TABLET 975 MG PO ×3 (10:05→20:57)
[2023-06-03] MEDS: Torsemide 20 MG TABLET 60 MG PO (10:05)
[2023-06-03 20:00] VITALS: BP 117/56; PULSE 92; RESP 16; TEMP 35.7; O2SAT 94
[2023-06-03] MEDS: Nystatin Powder 15 GM BOTTLE 1 APPL TOPICAL (20:57)
[2023-06-03] MEDS: Famotidine 20 MG TABLET PO (20:58)
[2023-06-03] MEDS: Sennosides 8.6 MG TABLET PO (20:59)
[2023-06-04] MEDS: Levothyroxine Sodium 75 MCG TABLET PO (06:19)
[2023-06-04 06:29] LABS: Glucose, Whole Blood 146 mg/dL (60-115)
[2023-06-04 07:00] VITALS: BMI 46.1
[2023-06-04 08:00] VITALS: BP 116/54; PULSE 98; RESP 18; TEMP 36.4; O2SAT 94
[2023-06-04 09:00] VITALS: BP 116/54
[2023-06-04] MEDS: Omeprazole 20 MG CAPSULE.DR PO (09:00)
[2023-06-04] MEDS: Sertraline HCL 100 MG TABLET PO (09:00)
[2023-06-04] MEDS: HaloperidoL 5 MG TABLET 10 MG PO (09:00)
[2023-06-04] MEDS: cloBAZam 10 MG TABLET PO ×2 (09:00→21:14)
[2023-06-04] MEDS: Spironolactone 25 MG TABLET PO (09:00)
[2023-06-04] MEDS: Benztropine Mesylate 1 MG TABLET PO (09:01)
[2023-06-04] MEDS: cefuroxime axetiL 500 MG TABLET PO ×2 (09:01→21:14)
[2023-06-04] MEDS: Nystatin Powder 15 GM BOTTLE 1 APPL TOPICAL ×2 (09:01→21:13)
[2023-06-04] MEDS: risperiDONE 1 MG TABLET PO ×2 (09:01→21:15)
[2023-06-04] MEDS: Zonisamide 100 MG CAPSULE 200 MG PO ×3 (09:01→21:14)
[2023-06-04] MEDS: metFORMIN HCl ER 500 MG TAB.ER.24H PO (09:01)
[2023-06-04] MEDS: Lidocaine 4 % Patch ADH..PATCH 1 PATCH TRANSDERMA (09:02)
[2023-06-04] MEDS: Acetaminophen 325 MG TABLET 975 MG PO ×3 (09:48→21:15)
--- NOTE | 2023-06-04 14:54 | P.PNPSI_ITS ---
Subjective Subjective Date of Service: 06/04/23 Reason For Visit: Schizophrenia Subjective Notes: Conditional Voluntary Interim History: The nursing staff reported the patient denies anxiety or depression, she is internally preoccupied but easily redirectable, she attends to groups. She was seen coloring in the common areas. We called today to her and explained her that a typical long-acting injectables are not an option due to the high cost of copayments so we are going to start Haldol Decanoate that it is specified in the court order. On interview the patient denies new symptoms, waiting for placement to home. Mental Status Exam Mental Status Exam Patient Appearance: Well Grooomed and Appropriate Patient Orientation: Person and Situation Level of Consciousness: Awake and Appropriate Patient Behavior: Guarded and Passive Mood Description: Withdrawn Affect Description: Constricted Patient Cognition Impaired: Yes Ability to Follow Directions: Good Speech Pattern: Clear Hallucinations: None Delusions: Not Present Thought Process: Distracted and Slowed Thinking Thought Content: positive for [place] and positive for Poverty of Content Judgement: Fair Diagnostics Vital Signs (24Hr): Vital Signs - 24 hr 06/03/23 20:00 06/04/23 08:00 06/04/23 09:00 Temperature 96.3 F L 97.6 F Pulse Rate 92 98 Respiratory Rate 16 18 Blood Pressure 117/56 L 116/54 L 116/54 L Pulse Oximetry 94 94 Oxygen Delivery Method Room Air Room Air BMI result Body Mass Index 45.9 Labs 05/25/23 11:47 06/03/23 08:01 Labs: Laboratory Results - last 48 hr 06/03/23 06/03/23 06/04/23 05:51 08:01 06:19 Creatinine 0.92 Estim Creat Clear Calc 65.5 Estimated GFR > 60 POC Glucose 167 H 146 H Imaging Radiology Impressions: ITS Impressions Upper GI/Barium Swallow X-Ray 05/26/23 10:31 IMPRESSION: 1. Premature spillage into the vallecula and pyriform sinuses with delayed swallow mechanism. Ballooning of the hypopharynx. 2. Trace laryngeal penetration with thick barium. 3. Limited evaluation of the esophagus, however, peristalsis is disorganized. 4. Limited evaluation of the stomach. There appear to be multiple areas of contrast pooling in the fundus and body the stomach that may represent small superficial aphthous ulcers. Recommend correlation EGD. This procedure was performed by Carrillo Morillo PA-C, and supervised by Dr. Huston Medications Medications Current Medications Acetaminophen (Acetaminophen 325 Mg Tablet) 975 mg PO TID [facility] Last Admin: 06/04/23 09:48 Dose: 975 mg Benztropine Mesylate (Benztropine Mesylate 1 Mg Tablet) 1 mg PO DAILY [facility] Last Admin: 06/04/23 09:01 Dose: 1 mg Cefuroxime Axetil (Cefuroxime Axetil 500 Mg Tablet) 500 mg PO BID [facility] Stop: 06/06/23 11:00 Last Admin: 06/04/23 09:01 Dose: 500 mg Clobazam (Clobazam 10 Mg Tablet) 10 mg PO BID [facility] Last Admin: 06/04/23 09:00 Dose: 10 mg Famotidine (Famotidine 20 Mg Tablet) 20 mg PO BEDTIME [facility] Last Admin: 06/03/23 20:58 Dose: 20 mg Haloperidol (Haloperidol 5 Mg Tablet) 10 mg PO DAILY [facility] Last Admin: 06/04/23 09:00 Dose: 10 mg Haloperidol Lactate (Haloperidol Lactate 5 Mg/Ml Vial) 10 mg IM DAILY PRN PRN Reason: refusal of PO Hydroxyzine HCl (Hydroxyzine Hcl 25 Mg Tablet) 25 mg PO Q6H PRN PRN Reason: Anxiety Last Admin: 05/24/23 01:30 Dose: 25 mg Levothyroxine Sodium (Levothyroxine Sodium 75 Mcg Tablet) 75 mcg PO DAILY@0600 [facility] Last Admin: 06/04/23 06:19 Dose: 75 mcg Lidocaine (Lidocaine 4 % Patch Adh..Patch) 1 patch TRANSDERMA DAILY [facility]; Protocol Last Admin: 06/04/23 09:02 Dose: 1 patch Lorazepam (Lorazepam 1 Mg Tablet) 1 mg PO Q6H PRN PRN Reason: severe anxiety Magnesium Hydroxide (Milk Of Magnesia 30 Ml Oral.Susp) 30 ml PO DAILY PRN PRN Reason: Constipation Last Admin: 05/26/23 20:16 Dose: 30 ml Metformin HCl (Metformin Hcl Er 500 Mg Tab.Er.24h) 500 mg PO DAILY@0800 [facility] Last Admin: 06/04/23 09:01 Dose: 500 mg Nystatin (Nystatin Powder 15 Gm Bottle) 1 appl TOPICAL BID [facility]; Protocol Last Admin: 06/04/23 09:01 Dose: 1 appl Omeprazole (Omeprazole 20 Mg Capsule.) 20 mg PO DAILY@0800 [facility] Last Admin: 06/04/23 09:00 Dose: 20 mg Polyethylene Glycol (Polyethylene Glycol 3350 17 Gm Powd.Pack) 17 gm PO DAILY PRN PRN Reason: 3 days no BM Risperidone (Risperidone 1 Mg Tablet) 1 mg PO BID [facility] Last Admin: 06/04/23 09:01 Dose: 1 mg Senna (Sennosides 8.6 Mg Tablet) 8.6 mg PO BEDTIME [facility] Last Admin: 06/03/23 20:59 Dose: 8.6 mg Sertraline HCl (Sertraline Hcl 100 Mg Tablet) 100 mg PO DAILY [facility] Last Admin: 06/04/23 09:00 Dose: 100 mg Spironolactone (Spironolactone 25 Mg Tablet) 25 mg PO DAILY [facility]; Protocol Last Admin: 06/04/23 09:00 Dose: 25 mg Torsemide (Torsemide 20 Mg Tablet) 60 mg PO MoWeFr [facility]; Protocol Last Admin: 06/03/23 10:05 Dose: 60 mg Trazodone HCl (Trazodone Hcl 50 Mg Tablet) 50 mg PO BEDTIME MRX1 PRN PRN Reason: Insomnia Last Admin: 05/25/23 20:24 Dose: 50 mg Zonisamide (Zonisamide 100 Mg Capsule) 200 mg PO TID [facility] Last Admin: 06/04/23 09:01 Dose: 200 mg Allergies Allergies Allergy/AdvReac Type Severity Reaction Status Date / Time ascorbic acid [Vitamin C] Allergy Unknown Unknown Verified 05/19/23 21:53 dexamethasone Allergy Unknown Verified 05/19/23 21:52 ibuprofen Allergy Unknown Verified 05/19/23 21:49 Penicillins Allergy Rash Verified 05/19/23 21:55 Assessment & Plan Assessment & Plan (1) Schizophrenia: Status: Acute Code(s): F20.9 - Schizophrenia, unspecified Plan The patient is an elderly female with a past history of schizophrenia who recently had medication changes and she was referred from her home to the emergency room due to exacerbation of delusions and paranoia. The patient had been admitted in the hospital a few weeks ago and sent to rehab for continuation of care and after being discharged home she was severely psychotic. She was brought to the emergency room and started on Haldol. 05/29 Patient with UA results positive for UTI, consulted with hospitalist and patient started on Ceftin. Patient a little hesitant to accept she had a UTI saying her urine is clear but agreed to start antibiotic. Denied AVH, denied SI. Grinding her teeth continually. Says she would like to know when she can discharge. -Ceftin 100mg bid for 7 days 05/30 Patient says that she is bored which is why she is doing coloring. Says she is really hoping to go home soon. Staff reports that she has been engaged, taking medications, good behavior; also they report she has been grinding her teeth much less which was encouraging. Yesterday Patient also started on nystatin for fungal infection on torso Plan 1. Continue with Haldol p.o. 10 mg p.o. q.h.s.. 2. Continue Risperdal 1 mg p.o. b.i.d.. 3. We will start Haldol Decanoate on June 04. 4. Most likely discharge early next week Reason for continued inpatient stay Substantial Risk for: inability to function, rapid decompensation and med/psych decompensation Time Spent With Patient Time: Total time managing care of this patient today _20___ minutes.
[2023-06-04 20:00] VITALS: BP 134/63; PULSE 89; RESP 16; TEMP 35.9; O2SAT 94
[2023-06-04] MEDS: Famotidine 20 MG TABLET PO (21:14)
[2023-06-04] MEDS: Sennosides 8.6 MG TABLET PO (21:15)
[2023-06-05] MEDS: Levothyroxine Sodium 75 MCG TABLET PO (05:47)
[2023-06-05 06:39] LABS: Glucose, Whole Blood 140 mg/dL (60-115)
[2023-06-05 08:06] VITALS: BP 112/81; PULSE 102; RESP 18; TEMP 36.2; O2SAT 95
[2023-06-05] MEDS: Sertraline HCL 100 MG TABLET PO (08:54)
[2023-06-05 08:55] VITALS: BP 112/81
[2023-06-05] MEDS: Spironolactone 25 MG TABLET PO (08:55)
[2023-06-05] MEDS: risperiDONE 1 MG TABLET PO ×2 (08:55→20:47)
[2023-06-05] MEDS: Zonisamide 100 MG CAPSULE 200 MG PO ×3 (08:55→20:44)
[2023-06-05] MEDS: Omeprazole 20 MG CAPSULE.DR PO (08:55)
[2023-06-05] MEDS: Benztropine Mesylate 1 MG TABLET PO (08:55)
[2023-06-05] MEDS: HaloperidoL 5 MG TABLET 10 MG PO (08:55)
[2023-06-05] MEDS: cloBAZam 10 MG TABLET PO ×2 (08:55→20:46)
[2023-06-05] MEDS: metFORMIN HCl ER 500 MG TAB.ER.24H PO (08:55)
[2023-06-05] MEDS: cefuroxime axetiL 500 MG TABLET PO ×2 (08:55→20:44)
[2023-06-05] MEDS: Acetaminophen 325 MG TABLET 975 MG PO ×3 (08:55→20:45)
[2023-06-05] MEDS: Lidocaine 4 % Patch ADH..PATCH 1 PATCH TRANSDERMA (08:56)
[2023-06-05] MEDS: Nystatin Powder 15 GM BOTTLE 1 APPL TOPICAL ×2 (08:56→21:44)
[2023-06-05 09:12] VITALS: BP 112/81
[2023-06-05] MEDS: Torsemide 20 MG TABLET 60 MG PO (09:12)
--- NOTE | 2023-06-05 12:18 | P.PNPSI_ITS ---
Subjective Subjective Date of Service: 06/05/23 Reason For Visit: Schizophrenia Subjective Notes: Conditional Voluntary Interim History: The nursing staff reported the patient had been compliant with treatment, no changes in her mental status she slept 8 hours. Yesterday we discussed the case with the and we are going to start on Haldol Decanoate 100 mg daily. Most likely we will discharge her next week on Thursday. On interview the patient denies new symptoms easily redirectable but looks internally preoccupied. Mental Status Exam Mental Status Exam Patient Appearance: Well Grooomed and Appropriate Patient Orientation: Person and Situation Level of Consciousness: Awake and Appropriate Patient Behavior: Guarded and Passive Mood Description: Withdrawn Affect Description: Constricted Patient Cognition Impaired: Yes Ability to Follow Directions: Good Speech Pattern: Clear Hallucinations: None Delusions: Ideas of Reference Thought Process: Distracted and Slowed Thinking Thought Content: positive for [place] and positive for Poverty of Content Judgement: Fair Diagnostics Vital Signs (24Hr): Vital Signs - 24 hr 06/04/23 20:00 06/05/23 08:06 06/05/23 08:55 Temperature 96.6 F L 97.2 F Pulse Rate 89 102 H Respiratory Rate 16 18 Blood Pressure 134/63 112/81 112/81 Pulse Oximetry 94 95 Oxygen Delivery Method Room Air Room Air 06/05/23 09:12 Temperature Pulse Rate Respiratory Rate Blood Pressure 112/81 Pulse Oximetry Oxygen Delivery Method BMI result Body Mass Index 46.1 Labs 05/25/23 11:47 06/03/23 08:01 Labs: Laboratory Results - last 48 hr 06/04/23 06/05/23 06:19 06:31 POC Glucose 146 H 140 H Imaging Radiology Impressions: ITS Impressions Upper GI/Barium Swallow X-Ray 05/26/23 10:31 IMPRESSION: 1. Premature spillage into the vallecula and pyriform sinuses with delayed swallow mechanism. Ballooning of the hypopharynx. 2. Trace laryngeal penetration with thick barium. 3. Limited evaluation of the esophagus, however, peristalsis is disorganized. 4. Limited evaluation of the stomach. There appear to be multiple areas of contrast pooling in the fundus and body the stomach that may represent small superficial aphthous ulcers. Recommend correlation EGD. This procedure was performed by Carrillo Morillo PA-C, and supervised by Dr. Huston Medications Medications Current Medications Acetaminophen (Acetaminophen 325 Mg Tablet) 975 mg PO TID [facility] Last Admin: 06/05/23 08:55 Dose: 975 mg Benztropine Mesylate (Benztropine Mesylate 1 Mg Tablet) 1 mg PO DAILY [facility] Last Admin: 06/05/23 08:55 Dose: 1 mg Cefuroxime Axetil (Cefuroxime Axetil 500 Mg Tablet) 500 mg PO BID [facility] Stop: 06/06/23 11:00 Last Admin: 06/05/23 08:55 Dose: 500 mg Clobazam (Clobazam 10 Mg Tablet) 10 mg PO BID [facility] Last Admin: 06/05/23 08:55 Dose: 10 mg Famotidine (Famotidine 20 Mg Tablet) 20 mg PO BEDTIME [facility] Last Admin: 06/04/23 21:14 Dose: 20 mg Haloperidol (Haloperidol 5 Mg Tablet) 10 mg PO DAILY [facility] Last Admin: 06/05/23 08:55 Dose: 10 mg Haloperidol Decanoate (Haloperidol Decanoate 50 Mg/Ml Vial) 100 mg IM Q28D [facility] Haloperidol Lactate (Haloperidol Lactate 5 Mg/Ml Vial) 10 mg IM DAILY PRN PRN Reason: refusal of PO Hydroxyzine HCl (Hydroxyzine Hcl 25 Mg Tablet) 25 mg PO Q6H PRN PRN Reason: Anxiety Last Admin: 05/24/23 01:30 Dose: 25 mg Levothyroxine Sodium (Levothyroxine Sodium 75 Mcg Tablet) 75 mcg PO DAILY@0600 [facility] Last Admin: 06/05/23 05:47 Dose: 75 mcg Lidocaine (Lidocaine 4 % Patch Adh..Patch) 1 patch TRANSDERMA DAILY [facility]; Protocol Last Admin: 06/05/23 08:56 Dose: 1 patch Lorazepam (Lorazepam 1 Mg Tablet) 1 mg PO Q6H PRN PRN Reason: severe anxiety Magnesium Hydroxide (Milk Of Magnesia 30 Ml Oral.Susp) 30 ml PO DAILY PRN PRN Reason: Constipation Last Admin: 05/26/23 20:16 Dose: 30 ml Metformin HCl (Metformin Hcl Er 500 Mg Tab.Er.24h) 500 mg PO DAILY@0800 [facility] Last Admin: 06/05/23 08:55 Dose: 500 mg Nystatin (Nystatin Powder 15 Gm Bottle) 1 appl TOPICAL BID [facility]; Protocol Last Admin: 06/05/23 08:56 Dose: 1 appl Omeprazole (Omeprazole 20 Mg Capsule.Dr) 20 mg PO DAILY@0800 [facility] Last Admin: 06/05/23 08:55 Dose: 20 mg Polyethylene Glycol (Polyethylene Glycol 3350 17 Gm Powd.Pack) 17 gm PO DAILY PRN PRN Reason: 3 days no BM Risperidone (Risperidone 1 Mg Tablet) 1 mg PO BID [facility] Last Admin: 06/05/23 08:55 Dose: 1 mg Senna (Sennosides 8.6 Mg Tablet) 8.6 mg PO BEDTIME [facility] Last Admin: 06/04/23 21:15 Dose: 8.6 mg Sertraline HCl (Sertraline Hcl 100 Mg Tablet) 100 mg PO DAILY [facility] Last Admin: 06/05/23 08:54 Dose: 100 mg Spironolactone (Spironolactone 25 Mg Tablet) 25 mg PO DAILY [facility]; Protocol Last Admin: 06/05/23 08:55 Dose: 25 mg Torsemide (Torsemide 20 Mg Tablet) 60 mg PO MoWeFr [facility]; Protocol Last Admin: 06/05/23 09:12 Dose: 60 mg Trazodone HCl (Trazodone Hcl 50 Mg Tablet) 50 mg PO BEDTIME MRX1 PRN PRN Reason: Insomnia Last Admin: 05/25/23 20:24 Dose: 50 mg Zonisamide (Zonisamide 100 Mg Capsule) 200 mg PO TID [facility] Last Admin: 06/05/23 08:55 Dose: 200 mg Allergies Allergies Allergy/AdvReac Type Severity Reaction Status Date / Time ascorbic acid [Vitamin C] Allergy Unknown Unknown Verified 05/19/23 21:53 dexamethasone Allergy Unknown Verified 05/19/23 21:52 ibuprofen Allergy Unknown Verified 05/19/23 21:49 Penicillins Allergy Rash Verified 05/19/23 21:55 Assessment & Plan Assessment & Plan (1) Schizophrenia: Status: Acute Code(s): F20.9 - Schizophrenia, unspecified Plan The patient is an elderly female with a past history of schizophrenia who recently had medication changes and she was referred from her home to the emergency room due to exacerbation of delusions and paranoia. The patient had been admitted in the hospital a few weeks ago and sent to rehab for continuation of care and after being discharged home she was severely psychotic. She was brought to the emergency room and started on Haldol. 05/29 Patient with UA results positive for UTI, consulted with hospitalist and patient started on Ceftin. Patient a little hesitant to accept she had a UTI saying her urine is clear but agreed to start antibiotic. Denied AVH, denied SI. Grinding her teeth continually. Says she would like to know when she can discharge. -Ceftin 100mg bid for 7 days 05/30 Patient says that she is bored which is why she is doing coloring. Says she is really hoping to go home soon. Staff reports that she has been engaged, taking medications, good behavior; also they report she has been grinding her teeth much less which was encouraging. Yesterday Patient also started on nystatin for fungal infection on torso Plan 1. Continue with Haldol p.o. 10 mg p.o. q.h.s.. 2. Continue Risperdal 1 mg p.o. b.i.d.. 3. We will start Haldol Decanoate on June 04. 4. Most likely discharge early next week Reason for continued inpatient stay Substantial Risk for: inability to function, rapid decompensation and med/psych decompensation Time Spent With Patient Time: Total time managing care of this patient today __20__ minutes.
[2023-06-05 14:19] LABS: Glucose, Whole Blood 150 mg/dL (60-115)
[2023-06-05] MEDS: Haloperidol Decanoate 50 MG/ML VIAL 100 MG IM (14:24)
[2023-06-05 20:00] VITALS: BP 137/63; PULSE 93; RESP 16; TEMP 36.7; O2SAT 97
[2023-06-05] MEDS: Famotidine 20 MG TABLET PO (20:46)
[2023-06-05] MEDS: Sennosides 8.6 MG TABLET PO (20:47)
[2023-06-05] MEDS: Milk of Magnesia 30 ML ORAL.SUSP PO (21:49)
[2023-06-06] MEDS: Levothyroxine Sodium 75 MCG TABLET PO (05:51)
[2023-06-06 05:55] LABS: Glucose, Whole Blood 149 mg/dL (60-115)
[2023-06-06 08:07] VITALS: BP 130/61; PULSE 79; RESP 17; TEMP 36.1; O2SAT 97
[2023-06-06] MEDS: Omeprazole 20 MG CAPSULE.DR PO (08:35)
[2023-06-06] MEDS: Acetaminophen 325 MG TABLET 975 MG PO ×3 (08:35→20:08)
[2023-06-06 08:36] VITALS: BP 130/61
[2023-06-06] MEDS: risperiDONE 1 MG TABLET PO ×2 (08:36→20:09)
[2023-06-06] MEDS: cefuroxime axetiL 500 MG TABLET PO (08:36)
[2023-06-06] MEDS: Benztropine Mesylate 1 MG TABLET PO (08:36)
[2023-06-06] MEDS: cloBAZam 10 MG TABLET PO ×2 (08:36→20:09)
[2023-06-06] MEDS: Spironolactone 25 MG TABLET PO (08:36)
[2023-06-06] MEDS: Zonisamide 100 MG CAPSULE 200 MG PO ×3 (08:36→20:09)
[2023-06-06] MEDS: Sertraline HCL 100 MG TABLET PO (08:36)
[2023-06-06] MEDS: metFORMIN HCl ER 500 MG TAB.ER.24H PO (08:36)
[2023-06-06] MEDS: HaloperidoL 5 MG TABLET 10 MG PO (08:36)
[2023-06-06] MEDS: Lidocaine 4 % Patch ADH..PATCH 1 PATCH TRANSDERMA (08:39)
[2023-06-06] MEDS: Nystatin Powder 15 GM BOTTLE 1 APPL TOPICAL ×2 (08:42→20:06)
--- NOTE | 2023-06-06 12:32 | P.PNPSI_ITS ---
Subjective Subjective Date of Service: 06/06/23 Reason For Visit: Schizophrenia Subjective Notes: Conditional Voluntary Interim History: Pt slept through the night. She appears in less physical pain. She ambulates with walker, no overt delusional content noted. She denies SI/HI. She does ask about dc. no behavioral concerns. vs stable. Review of Systems Review of Systems Nothing acute Mental Status Exam Mental Status Exam Patient Appearance: Well Grooomed and Appropriate Patient Orientation: Person and Situation Level of Consciousness: Awake and Appropriate Patient Behavior: Guarded and Passive Mood Description: Withdrawn Affect Description: Constricted Patient Cognition Impaired: Yes Ability to Follow Directions: Good Speech Pattern: Clear Diagnostics Vital Signs (24Hr): Vital Signs - 24 hr 06/05/23 20:00 06/06/23 08:07 06/06/23 08:36 Temperature 98.1 F 96.9 F Pulse Rate 93 79 Respiratory Rate 16 17 Blood Pressure 137/63 130/61 130/61 Pulse Oximetry 97 97 Oxygen Delivery Method Room Air Room Air BMI result Body Mass Index 46.1 Labs 05/25/23 11:47 06/03/23 08:01 Labs: Laboratory Results - last 48 hr 06/05/23 06/05/23 06/06/23 06:16 06:31 05:50 POC Glucose 150 H 140 H 149 H Imaging Radiology Impressions: ITS Impressions Upper GI/Barium Swallow X-Ray 05/26/23 10:31 IMPRESSION: 1. Premature spillage into the vallecula and pyriform sinuses with delayed swallow mechanism. Ballooning of the hypopharynx. 2. Trace laryngeal penetration with thick barium. 3. Limited evaluation of the esophagus, however, peristalsis is disorganized. 4. Limited evaluation of the stomach. There appear to be multiple areas of contrast pooling in the fundus and body the stomach that may represent small superficial aphthous ulcers. Recommend correlation EGD. This procedure was performed by Carrillo Morillo PA-C, and supervised by Dr. Huston Medications Medications Current Medications Acetaminophen (Acetaminophen 325 Mg Tablet) 975 mg PO TID [facility] Last Admin: 06/06/23 08:35 Dose: 975 mg Benztropine Mesylate (Benztropine Mesylate 1 Mg Tablet) 1 mg PO DAILY [facility] Last Admin: 06/06/23 08:36 Dose: 1 mg Clobazam (Clobazam 10 Mg Tablet) 10 mg PO BID [facility] Last Admin: 06/06/23 08:36 Dose: 10 mg Famotidine (Famotidine 20 Mg Tablet) 20 mg PO BEDTIME [facility] Last Admin: 06/05/23 20:46 Dose: 20 mg Haloperidol (Haloperidol 5 Mg Tablet) 10 mg PO DAILY [facility] Last Admin: 06/06/23 08:36 Dose: 10 mg Haloperidol Decanoate (Haloperidol Decanoate 50 Mg/Ml Vial) 100 mg IM Q28D [facility] Last Admin: 06/05/23 14:24 Dose: 100 mg Haloperidol Lactate (Haloperidol Lactate 5 Mg/Ml Vial) 10 mg IM DAILY PRN PRN Reason: refusal of PO Hydroxyzine HCl (Hydroxyzine Hcl 25 Mg Tablet) 25 mg PO Q6H PRN PRN Reason: Anxiety Last Admin: 05/24/23 01:30 Dose: 25 mg Levothyroxine Sodium (Levothyroxine Sodium 75 Mcg Tablet) 75 mcg PO DAILY@0600 [facility] Last Admin: 06/06/23 05:51 Dose: 75 mcg Lidocaine (Lidocaine 4 % Patch Adh..Patch) 1 patch TRANSDERMA DAILY [facility]; Protocol Last Admin: 06/06/23 08:39 Dose: 1 patch Lorazepam (Lorazepam 1 Mg Tablet) 1 mg PO Q6H PRN PRN Reason: severe anxiety Magnesium Hydroxide (Milk Of Magnesia 30 Ml Oral.Susp) 30 ml PO DAILY PRN PRN Reason: Constipation Last Admin: 06/05/23 21:49 Dose: 30 ml Metformin HCl (Metformin Hcl Er 500 Mg Tab.Er.24h) 500 mg PO DAILY@0800 [facility] Last Admin: 06/06/23 08:36 Dose: 500 mg Nystatin (Nystatin Powder 15 Gm Bottle) 1 appl TOPICAL BID [facility]; Protocol Last Admin: 06/06/23 08:42 Dose: 1 appl Omeprazole (Omeprazole 20 Mg Capsule.Dr) 20 mg PO DAILY@0800 [facility] Last Admin: 06/06/23 08:35 Dose: 20 mg Polyethylene Glycol (Polyethylene Glycol 3350 17 Gm Powd.Pack) 17 gm PO DAILY PRN PRN Reason: 3 days no BM Risperidone (Risperidone 1 Mg Tablet) 1 mg PO BID [facility] Last Admin: 06/06/23 08:36 Dose: 1 mg Senna (Sennosides 8.6 Mg Tablet) 8.6 mg PO BEDTIME [facility] Last Admin: 06/05/23 20:47 Dose: 8.6 mg Sertraline HCl (Sertraline Hcl 100 Mg Tablet) 100 mg PO DAILY [facility] Last Admin: 06/06/23 08:36 Dose: 100 mg Spironolactone (Spironolactone 25 Mg Tablet) 25 mg PO DAILY [facility]; Protocol Last Admin: 06/06/23 08:36 Dose: 25 mg Torsemide (Torsemide 20 Mg Tablet) 60 mg PO MoWeFr [facility]; Protocol Last Admin: 06/05/23 09:12 Dose: 60 mg Trazodone HCl (Trazodone Hcl 50 Mg Tablet) 50 mg PO BEDTIME MRX1 PRN PRN Reason: Insomnia Last Admin: 05/25/23 20:24 Dose: 50 mg Zonisamide (Zonisamide 100 Mg Capsule) 200 mg PO TID [facility] Last Admin: 06/06/23 08:36 Dose: 200 mg Allergies Allergies Allergy/AdvReac Type Severity Reaction Status Date / Time ascorbic acid [Vitamin C] Allergy Unknown Unknown Verified 05/19/23 21:53 dexamethasone Allergy Unknown Verified 05/19/23 21:52 ibuprofen Allergy Unknown Verified 05/19/23 21:49 Penicillins Allergy Rash Verified 05/19/23 21:55 Assessment & Plan Assessment & Plan (1) Schizophrenia: Status: Acute Code(s): F20.9 - Schizophrenia, unspecified Plan The patient is an elderly female with a past history of schizophrenia who recently had medication changes and she was referred from her home to the emergency room due to exacerbation of delusions and paranoia. The patient had been admitted in the hospital a few weeks ago and sent to rehab for continuation of care and after being discharged home she was severely psychotic. She was brought to the emergency room and started on Haldol. 05/29 Patient with UA results positive for UTI, consulted with hospitalist and patient started on Ceftin. Patient a little hesitant to accept she had a UTI saying her urine is clear but agreed to start antibiotic. Denied AVH, denied SI. Grinding her teeth continually. Says she would like to know when she can discharge. -Ceftin 100mg bid for 7 days 05/30 Patient says that she is bored which is why she is doing coloring. Says she is really hoping to go home soon. Staff reports that she has been engaged, taking medications, good behavior; also they report she has been grinding her teeth much less which was encouraging. Yesterday Patient also started on nystatin for fungal infection on torso Plan 06/05 continue tx. Reason for continued inpatient stay Substantial Risk for: inability to function Time Spent With Patient Time: Total time managing care of this patient today ____ minutes.
[2023-06-06 20:00] VITALS: BP 131/60; PULSE 83; RESP 18; TEMP 36.4; O2SAT 97
[2023-06-06] MEDS: Milk of Magnesia 30 ML ORAL.SUSP PO (20:06)
[2023-06-06] MEDS: Sennosides 8.6 MG TABLET PO (20:09)
[2023-06-06] MEDS: Famotidine 20 MG TABLET PO (20:09)
[2023-06-07] MEDS: Levothyroxine Sodium 75 MCG TABLET PO (06:16)
[2023-06-07 06:43] LABS: Glucose, Whole Blood 156 mg/dL (60-115)
[2023-06-07 09:01] VITALS: BP 132/60; PULSE 110; RESP 17; O2SAT 94
[2023-06-07 09:03] VITALS: BP 132/60
[2023-06-07] MEDS: Spironolactone 25 MG TABLET PO (09:03)
[2023-06-07] MEDS: risperiDONE 1 MG TABLET PO ×2 (09:03→20:42)
[2023-06-07] MEDS: Omeprazole 20 MG CAPSULE.DR PO (09:03)
[2023-06-07] MEDS: cloBAZam 10 MG TABLET PO ×2 (09:03→20:42)
[2023-06-07] MEDS: Sertraline HCL 100 MG TABLET PO (09:03)
[2023-06-07] MEDS: Benztropine Mesylate 1 MG TABLET PO (09:04)
[2023-06-07] MEDS: metFORMIN HCl ER 500 MG TAB.ER.24H PO (09:04)
[2023-06-07] MEDS: Acetaminophen 325 MG TABLET 975 MG PO ×3 (09:04→20:42)
[2023-06-07] MEDS: Zonisamide 100 MG CAPSULE 200 MG PO ×3 (09:04→20:43)
[2023-06-07] MEDS: HaloperidoL 5 MG TABLET 10 MG PO (09:04)
[2023-06-07] MEDS: Lidocaine 4 % Patch ADH..PATCH 1 PATCH TRANSDERMA (09:04)
[2023-06-07] MEDS: Nystatin Powder 15 GM BOTTLE 1 APPL TOPICAL ×2 (09:07→20:55)
--- NOTE | 2023-06-07 14:52 | P.PNPSI_ITS ---
Subjective Subjective Date of Service: 06/07/23 Reason For Visit: Schizophrenia Interim History: Pt slept through the night. She appears in less physical pain. She ambulates with walker, no overt delusional content noted. She denies SI/HI. She does ask about dc. no behavioral concerns. vs stable. Review of Systems Review of Systems Nothing acute Mental Status Exam Mental Status Exam Patient Appearance: Well Grooomed and Appropriate Patient Orientation: Person and Situation Level of Consciousness: Awake and Appropriate Patient Behavior: Guarded and Passive Mood Description: Withdrawn Affect Description: Constricted Patient Cognition Impaired: Yes Ability to Follow Directions: Good Speech Pattern: Clear Diagnostics Vital Signs (24Hr): Vital Signs - 24 hr 06/06/23 20:00 06/07/23 09:01 06/07/23 09:03 Temperature 97.6 F Pulse Rate 83 110 H Respiratory Rate 18 17 Blood Pressure 131/60 132/60 132/60 Pulse Oximetry 97 94 Oxygen Delivery Method Room Air Room Air BMI result Body Mass Index 46.1 Labs 05/25/23 11:47 06/03/23 08:01 Labs: Laboratory Results - last 48 hr 06/06/23 06/07/23 05:50 06:15 POC Glucose 149 H 156 H Imaging Radiology Impressions: ITS Impressions Upper GI/Barium Swallow X-Ray 05/26/23 10:31 IMPRESSION: 1. Premature spillage into the vallecula and pyriform sinuses with delayed swallow mechanism. Ballooning of the hypopharynx. 2. Trace laryngeal penetration with thick barium. 3. Limited evaluation of the esophagus, however, peristalsis is disorganized. 4. Limited evaluation of the stomach. There appear to be multiple areas of contrast pooling in the fundus and body the stomach that may represent small superficial aphthous ulcers. Recommend correlation EGD. This procedure was performed by Carrillo Morillo PA-C, and supervised by Dr. Huston Medications Medications Current Medications Acetaminophen (Acetaminophen 325 Mg Tablet) 975 mg PO TID [facility] Last Admin: 06/07/23 09:04 Dose: 975 mg Benztropine Mesylate (Benztropine Mesylate 1 Mg Tablet) 1 mg PO DAILY [facility] Last Admin: 06/07/23 09:04 Dose: 1 mg Clobazam (Clobazam 10 Mg Tablet) 10 mg PO BID [facility] Last Admin: 06/07/23 09:03 Dose: 10 mg Famotidine (Famotidine 20 Mg Tablet) 20 mg PO BEDTIME [facility] Last Admin: 06/06/23 20:09 Dose: 20 mg Haloperidol (Haloperidol 5 Mg Tablet) 10 mg PO DAILY [facility] Last Admin: 06/07/23 09:04 Dose: 10 mg Haloperidol Decanoate (Haloperidol Decanoate 50 Mg/Ml Vial) 100 mg IM Q28D [facility] Last Admin: 06/05/23 14:24 Dose: 100 mg Haloperidol Lactate (Haloperidol Lactate 5 Mg/Ml Vial) 10 mg IM DAILY PRN PRN Reason: refusal of PO Hydroxyzine HCl (Hydroxyzine Hcl 25 Mg Tablet) 25 mg PO Q6H PRN PRN Reason: Anxiety Last Admin: 05/24/23 01:30 Dose: 25 mg Levothyroxine Sodium (Levothyroxine Sodium 75 Mcg Tablet) 75 mcg PO DAILY@0600 [facility] Last Admin: 06/07/23 06:16 Dose: 75 mcg Lidocaine (Lidocaine 4 % Patch Adh..Patch) 1 patch TRANSDERMA DAILY [facility]; Protocol Last Admin: 06/07/23 09:04 Dose: 1 patch Lorazepam (Lorazepam 1 Mg Tablet) 1 mg PO Q6H PRN PRN Reason: severe anxiety Magnesium Hydroxide (Milk Of Magnesia 30 Ml Oral.Susp) 30 ml PO DAILY PRN PRN Reason: Constipation Last Admin: 06/06/23 20:06 Dose: 30 ml Metformin HCl (Metformin Hcl Er 500 Mg Tab.Er.24h) 500 mg PO DAILY@0800 [facility] Last Admin: 06/07/23 09:04 Dose: 500 mg Nystatin (Nystatin Powder 15 Gm Bottle) 1 appl TOPICAL BID [facility]; Protocol Last Admin: 06/07/23 09:07 Dose: 1 appl Omeprazole (Omeprazole 20 Mg Capsule.Dr) 20 mg PO DAILY@0800 [facility] Last Admin: 06/07/23 09:03 Dose: 20 mg Polyethylene Glycol (Polyethylene Glycol 3350 17 Gm Powd.Pack) 17 gm PO DAILY PRN PRN Reason: 3 days no BM Risperidone (Risperidone 1 Mg Tablet) 1 mg PO BID [facility] Last Admin: 06/07/23 09:03 Dose: 1 mg Senna (Sennosides 8.6 Mg Tablet) 8.6 mg PO BEDTIME [facility] Last Admin: 06/06/23 20:09 Dose: 8.6 mg Sertraline HCl (Sertraline Hcl 100 Mg Tablet) 100 mg PO DAILY [facility] Last Admin: 06/07/23 09:03 Dose: 100 mg Spironolactone (Spironolactone 25 Mg Tablet) 25 mg PO DAILY [facility]; Protocol Last Admin: 06/07/23 09:03 Dose: 25 mg Torsemide (Torsemide 20 Mg Tablet) 60 mg PO MoWeFr [facility]; Protocol Last Admin: 06/05/23 09:12 Dose: 60 mg Trazodone HCl (Trazodone Hcl 50 Mg Tablet) 50 mg PO BEDTIME MRX1 PRN PRN Reason: Insomnia Last Admin: 05/25/23 20:24 Dose: 50 mg Zonisamide (Zonisamide 100 Mg Capsule) 200 mg PO TID [facility] Last Admin: 06/07/23 09:04 Dose: 200 mg Allergies Allergies Allergy/AdvReac Type Severity Reaction Status Date / Time ascorbic acid [Vitamin C] Allergy Unknown Unknown Verified 05/19/23 21:53 dexamethasone Allergy Unknown Verified 05/19/23 21:52 ibuprofen Allergy Unknown Verified 05/19/23 21:49 Penicillins Allergy Rash Verified 05/19/23 21:55 Assessment & Plan Assessment & Plan (1) Schizophrenia: Status: Acute Code(s): F20.9 - Schizophrenia, unspecified Plan The patient is an elderly female with a past history of schizophrenia who recently had medication changes and she was referred from her home to the emergency room due to exacerbation of delusions and paranoia. The patient had been admitted in the hospital a few weeks ago and sent to rehab for continuation of care and after being discharged home she was severely psychotic. She was brought to the emergency room and started on Haldol. 05/29 Patient with UA results positive for UTI, consulted with hospitalist and patient started on Ceftin. Patient a little hesitant to accept she had a UTI saying her urine is clear but agreed to start antibiotic. Denied AVH, denied SI. Grinding her teeth continually. Says she would like to know when she can discharge. -Ceftin 100mg bid for 7 days 05/30 Patient says that she is bored which is why she is doing coloring. Says she is really hoping to go home soon. Staff reports that she has been engaged, taking medications, good behavior; also they report she has been grinding her teeth much less which was encouraging. Yesterday Patient also started on nystatin for fungal infection on torso Plan 06/06 continue tx. Reason for continued inpatient stay Substantial Risk for: inability to function Time Spent With Patient Time: Total time managing care of this patient today ____ minutes.
[2023-06-07] MEDS: Famotidine 20 MG TABLET PO (20:42)
[2023-06-07 23:47] VITALS: BP 117/57; PULSE 92; RESP 18; TEMP 36.3; O2SAT 95
[2023-06-08 05:42] LABS: Glucose, Whole Blood 153 mg/dL (60-115)
[2023-06-08] MEDS: Levothyroxine Sodium 75 MCG TABLET PO (05:57)
[2023-06-08 07:55] VITALS: BP 128/62; PULSE 75; RESP 18; TEMP 36; O2SAT 95
[2023-06-08] MEDS: Acetaminophen 325 MG TABLET 975 MG PO ×3 (08:25→21:31)
[2023-06-08] MEDS: cloBAZam 10 MG TABLET PO ×2 (08:25→21:33)
[2023-06-08 08:26] VITALS: BP 108/54
[2023-06-08] MEDS: HaloperidoL 5 MG TABLET 10 MG PO (08:26)
[2023-06-08] MEDS: Sertraline HCL 100 MG TABLET PO (08:26)
[2023-06-08] MEDS: metFORMIN HCl ER 500 MG TAB.ER.24H PO (08:26)
[2023-06-08] MEDS: Omeprazole 20 MG CAPSULE.DR PO (08:26)
[2023-06-08] MEDS: Benztropine Mesylate 1 MG TABLET PO (08:26)
[2023-06-08] MEDS: Spironolactone 25 MG TABLET PO (08:26)
[2023-06-08] MEDS: risperiDONE 1 MG TABLET PO ×2 (08:26→21:32)
[2023-06-08] MEDS: Lidocaine 4 % Patch ADH..PATCH 1 PATCH TRANSDERMA (08:29)
[2023-06-08 08:34] VITALS: BP 108/54
[2023-06-08] MEDS: Torsemide 20 MG TABLET 60 MG PO (08:34)
[2023-06-08] MEDS: Nystatin Powder 15 GM BOTTLE 1 APPL TOPICAL ×2 (08:36→21:32)
--- NOTE | 2023-06-08 14:43 | HO.PSYCHPN ---
Subjective Subjective Date of Service: 06/08/23 Reason For Visit: Schizophrenia Subjective Notes: Conditional Voluntary Interim History: The nursing staff reported no changes in her mental status she reported that she had diarrhea 4 times yesterday. She slept 8 hours. On interview the patient complains of sore throat, we are adding p.r.n. medication Mental Status Exam Mental Status Exam Patient Appearance: Appropriate Patient Orientation: Person and Situation Level of Consciousness: Awake Patient Behavior: Guarded and Passive Mood Description: Withdrawn Affect Description: Constricted Patient Cognition Impaired: Yes Ability to Follow Directions: Good Speech Pattern: Clear Hallucinations: None Delusions: Not Present Thought Process: Distracted and Slowed Thinking Thought Content: positive for [place] and positive for Poverty of Content Judgement: Fair Diagnostics Vital Signs (24Hr): Vital Signs - 24 hr 06/07/23 23:47 06/08/23 07:55 06/08/23 08:26 Temperature 97.4 F 96.8 F Pulse Rate 92 75 Respiratory Rate 18 18 Blood Pressure 117/57 L 128/62 108/54 L Pulse Oximetry 95 95 Oxygen Delivery Method Room Air Room Air 06/08/23 08:34 Temperature Pulse Rate Respiratory Rate Blood Pressure 108/54 L Pulse Oximetry Oxygen Delivery Method BMI result Body Mass Index 46.1 Labs 05/25/23 11:47 06/03/23 08:01 Labs: Laboratory Results - last 48 hr 06/07/23 06/08/23 06:15 05:28 POC Glucose 156 H 153 H Imaging Radiology Impressions: ITS Impressions Upper GI/Barium Swallow X-Ray 05/26/23 10:31 IMPRESSION: 1. Premature spillage into the vallecula and pyriform sinuses with delayed swallow mechanism. Ballooning of the hypopharynx. 2. Trace laryngeal penetration with thick barium. 3. Limited evaluation of the esophagus, however, peristalsis is disorganized. 4. Limited evaluation of the stomach. There appear to be multiple areas of contrast pooling in the fundus and body the stomach that may represent small superficial aphthous ulcers. Recommend correlation EGD. This procedure was performed by Carrillo Morillo PA-C, and supervised by Dr. Huston Medications Medications Current Medications Acetaminophen (Acetaminophen 325 Mg Tablet) 975 mg PO TID [facility] Last Admin: 06/08/23 08:25 Dose: 975 mg Benztropine Mesylate (Benztropine Mesylate 1 Mg Tablet) 1 mg PO DAILY [facility] Last Admin: 06/08/23 08:26 Dose: 1 mg Clobazam (Clobazam 10 Mg Tablet) 10 mg PO BID [facility] Last Admin: 06/08/23 08:25 Dose: 10 mg Famotidine (Famotidine 20 Mg Tablet) 20 mg PO BEDTIME [facility] Last Admin: 06/07/23 20:42 Dose: 20 mg Haloperidol (Haloperidol 5 Mg Tablet) 10 mg PO DAILY [facility] Last Admin: 06/08/23 08:26 Dose: 10 mg Haloperidol Decanoate (Haloperidol Decanoate 50 Mg/Ml Vial) 100 mg IM Q28D [facility] Last Admin: 06/05/23 14:24 Dose: 100 mg Haloperidol Lactate (Haloperidol Lactate 5 Mg/Ml Vial) 10 mg IM DAILY PRN PRN Reason: refusal of PO Hydroxyzine HCl (Hydroxyzine Hcl 25 Mg Tablet) 25 mg PO Q6H PRN PRN Reason: Anxiety Last Admin: 05/24/23 01:30 Dose: 25 mg Levothyroxine Sodium (Levothyroxine Sodium 75 Mcg Tablet) 75 mcg PO DAILY@0600 [facility] Last Admin: 06/08/23 05:57 Dose: 75 mcg Lidocaine (Lidocaine 4 % Patch Adh..Patch) 1 patch TRANSDERMA DAILY [facility]; Protocol Last Admin: 06/08/23 08:29 Dose: 1 patch Lorazepam (Lorazepam 1 Mg Tablet) 1 mg PO Q6H PRN PRN Reason: severe anxiety Magnesium Hydroxide (Milk Of Magnesia 30 Ml Oral.Susp) 30 ml PO DAILY PRN PRN Reason: Constipation Last Admin: 06/06/23 20:06 Dose: 30 ml Metformin HCl (Metformin Hcl Er 500 Mg Tab.Er.24h) 500 mg PO DAILY@0800 [facility] Last Admin: 06/08/23 08:26 Dose: 500 mg Nystatin (Nystatin Powder 15 Gm Bottle) 1 appl TOPICAL BID [facility]; Protocol Last Admin: 06/08/23 08:36 Dose: 1 appl Omeprazole (Omeprazole 20 Mg Capsule.Dr) 20 mg PO DAILY@0800 [facility] Last Admin: 06/08/23 08:26 Dose: 20 mg Polyethylene Glycol (Polyethylene Glycol 3350 17 Gm Powd.Pack) 17 gm PO DAILY PRN PRN Reason: 3 days no BM Risperidone (Risperidone 1 Mg Tablet) 1 mg PO BID [facility] Last Admin: 06/08/23 08:26 Dose: 1 mg Senna (Sennosides 8.6 Mg Tablet) 8.6 mg PO BEDTIME [facility] Last Admin: 06/07/23 20:44 Dose: Not Given Sertraline HCl (Sertraline Hcl 100 Mg Tablet) 100 mg PO DAILY [facility] Last Admin: 06/08/23 08:26 Dose: 100 mg Spironolactone (Spironolactone 25 Mg Tablet) 25 mg PO DAILY [facility]; Protocol Last Admin: 06/08/23 08:26 Dose: 25 mg Torsemide (Torsemide 20 Mg Tablet) 60 mg PO MoWeFr [facility]; Protocol Last Admin: 06/08/23 08:34 Dose: 60 mg Trazodone HCl (Trazodone Hcl 50 Mg Tablet) 50 mg PO BEDTIME MRX1 PRN PRN Reason: Insomnia Last Admin: 05/25/23 20:24 Dose: 50 mg Zonisamide (Zonisamide 100 Mg Capsule) 200 mg PO TID [facility] Last Admin: 06/08/23 08:50 Dose: Not Given Allergies Allergies Allergy/AdvReac Type Severity Reaction Status Date / Time ascorbic acid [Vitamin C] Allergy Unknown Unknown Verified 05/19/23 21:53 dexamethasone Allergy Unknown Verified 05/19/23 21:52 ibuprofen Allergy Unknown Verified 05/19/23 21:49 Penicillins Allergy Rash Verified 05/19/23 21:55 Assessment & Plan Assessment & Plan (1) Schizophrenia: Status: Acute Code(s): F20.9 - Schizophrenia, unspecified Plan The patient is an elderly female with a past history of schizophrenia who recently had medication changes and she was referred from her home to the emergency room due to exacerbation of delusions and paranoia. The patient had been admitted in the hospital a few weeks ago and sent to rehab for continuation of care and after being discharged home she was severely psychotic. She was brought to the emergency room and started on Haldol. 05/29 Patient with UA results positive for UTI, consulted with hospitalist and patient started on Ceftin. Patient a little hesitant to accept she had a UTI saying her urine is clear but agreed to start antibiotic. Denied AVH, denied SI. Grinding her teeth continually. Says she would like to know when she can discharge. -Ceftin 100mg bid for 7 days 05/30 Patient says that she is bored which is why she is doing coloring. Says she is really hoping to go home soon. Staff reports that she has been engaged, taking medications, good behavior; also they report she has been grinding her teeth much less which was encouraging. Yesterday Patient also started on nystatin for fungal infection on torso Plan 06/06 continue tx. Add p.r.n. for sore throat Reason for continued inpatient stay Substantial Risk for: inability to function, rapid decompensation and med/psych decompensation Time Spent With Patient Time: Total time managing care of this patient today __20__ minutes.
[2023-06-08] MEDS: Zonisamide 100 MG CAPSULE 200 MG PO ×2 (14:58→21:31)
[2023-06-08 15:33] LABS: COVID-19 Test Negative (Negative); IDNOW Serial# 152EDE1D
[2023-06-08 20:00] VITALS: BP 123/57; PULSE 80; RESP 16; TEMP 36.9; O2SAT 95
[2023-06-08] MEDS: Sennosides 8.6 MG TABLET PO (21:32)
[2023-06-08] MEDS: Famotidine 20 MG TABLET PO (21:33)
[2023-06-09] MEDS: Levothyroxine Sodium 75 MCG TABLET PO (06:17)
[2023-06-09 06:31] LABS: Glucose, Whole Blood 127 mg/dL (60-115)
[2023-06-09 08:55] VITALS: BP 116/51; PULSE 105; RESP 16; TEMP 36.1; O2SAT 93
[2023-06-09] MEDS: Acetaminophen 325 MG TABLET 975 MG PO ×3 (09:24→21:21)
[2023-06-09] MEDS: Zonisamide 100 MG CAPSULE 200 MG PO ×3 (09:24→21:22)
[2023-06-09] MEDS: risperiDONE 1 MG TABLET PO ×2 (09:24→21:23)
[2023-06-09 09:25] VITALS: BP 116/51
[2023-06-09] MEDS: metFORMIN HCl ER 500 MG TAB.ER.24H PO (09:25)
[2023-06-09] MEDS: Spironolactone 25 MG TABLET PO (09:25)
[2023-06-09] MEDS: HaloperidoL 5 MG TABLET 10 MG PO (09:26)
[2023-06-09] MEDS: Benztropine Mesylate 1 MG TABLET PO (09:26)
[2023-06-09] MEDS: Omeprazole 20 MG CAPSULE.DR PO (09:26)
[2023-06-09] MEDS: Sertraline HCL 100 MG TABLET PO (09:26)
[2023-06-09] MEDS: cloBAZam 10 MG TABLET PO ×2 (09:26→21:22)
[2023-06-09] MEDS: Nystatin Powder 15 GM BOTTLE 1 APPL TOPICAL ×2 (09:28→21:21)
[2023-06-09] MEDS: Lidocaine 4 % Patch ADH..PATCH 1 PATCH TRANSDERMA (09:28)
--- NOTE | 2023-06-09 16:52 | P.PNPSI_ITS ---
Subjective Subjective Date of Service: 06/09/23 Reason For Visit: Schizophrenia Subjective Notes: Conditional Voluntary Interim History: The nursing staff reported the patient had been compliant with treatment. She was COVID negative. The social worker masters reported that she is doing better, still with chronic psychotic symptoms but no safety concerns. On interview the patient denies new symptoms agreed on discharge tomorrow. Mental Status Exam Mental Status Exam Patient Appearance: Appropriate Patient Orientation: Person and Situation Level of Consciousness: Awake and Appropriate Patient Behavior: Guarded and Passive Mood Description: Withdrawn Affect Description: Constricted Patient Cognition Impaired: Yes Ability to Follow Directions: Good Speech Pattern: Clear Hallucinations: None Delusions: Paranoid Ideation and Ideas of Reference Thought Process: Distracted and Slowed Thinking Thought Content: positive for [place] and positive for Poverty of Content Judgement: Fair Diagnostics Vital Signs (24Hr): Vital Signs - 24 hr 06/08/23 20:00 06/09/23 08:55 06/09/23 09:25 Temperature 98.5 F 96.9 F Pulse Rate 80 105 H Respiratory Rate 16 16 Blood Pressure 123/57 L 116/51 L 116/51 L Pulse Oximetry 95 93 Oxygen Delivery Method Room Air Room Air BMI result Body Mass Index 46.1 Labs 05/25/23 11:47 06/03/23 08:01 Labs: Laboratory Results - last 48 hr 06/08/23 06/08/23 06/09/23 05:28 15:10 06:17 POC Glucose 153 H 127 H COVID-19 ([facility]) Negative COVID-19 Clin Com See Note Imaging Radiology Impressions: ITS Impressions Upper GI/Barium Swallow X-Ray 05/26/23 10:31 IMPRESSION: 1. Premature spillage into the vallecula and pyriform sinuses with delayed swallow mechanism. Ballooning of the hypopharynx. 2. Trace laryngeal penetration with thick barium. 3. Limited evaluation of the esophagus, however, peristalsis is disorganized. 4. Limited evaluation of the stomach. There appear to be multiple areas of contrast pooling in the fundus and body the stomach that may represent small superficial aphthous ulcers. Recommend correlation EGD. This procedure was performed by Carrillo Morillo PA-C, and supervised by Dr. Huston Medications Medications Current Medications Acetaminophen (Acetaminophen 325 Mg Tablet) 975 mg PO TID [facility] Last Admin: 06/09/23 14:36 Dose: 975 mg Benzocaine (Throat Lozenge, Medicated Lozenge) 1 lozenge MUCOUS MEM Q2H PRN PRN Reason: Sore Throat Benztropine Mesylate (Benztropine Mesylate 1 Mg Tablet) 1 mg PO DAILY [facility] Last Admin: 06/09/23 09:26 Dose: 1 mg Clobazam (Clobazam 10 Mg Tablet) 10 mg PO BID [facility] Last Admin: 06/09/23 09:26 Dose: 10 mg Famotidine (Famotidine 20 Mg Tablet) 20 mg PO BEDTIME [facility] Last Admin: 06/08/23 21:33 Dose: 20 mg Haloperidol (Haloperidol 5 Mg Tablet) 10 mg PO DAILY [facility] Last Admin: 06/09/23 09:26 Dose: 10 mg Haloperidol Decanoate (Haloperidol Decanoate 50 Mg/Ml Vial) 100 mg IM Q28D [facility] Last Admin: 06/05/23 14:24 Dose: 100 mg Haloperidol Lactate (Haloperidol Lactate 5 Mg/Ml Vial) 10 mg IM DAILY PRN PRN Reason: refusal of PO Hydroxyzine HCl (Hydroxyzine Hcl 25 Mg Tablet) 25 mg PO Q6H PRN PRN Reason: Anxiety Last Admin: 05/24/23 01:30 Dose: 25 mg Levothyroxine Sodium (Levothyroxine Sodium 75 Mcg Tablet) 75 mcg PO DAILY@0600 [facility] Last Admin: 06/09/23 06:17 Dose: 75 mcg Lidocaine (Lidocaine 4 % Patch Adh..Patch) 1 patch TRANSDERMA DAILY [facility]; Protocol Last Admin: 06/09/23 09:28 Dose: 1 patch Lorazepam (Lorazepam 1 Mg Tablet) 1 mg PO Q6H PRN PRN Reason: severe anxiety Magnesium Hydroxide (Milk Of Magnesia 30 Ml Oral.Susp) 30 ml PO DAILY PRN PRN Reason: Constipation Last Admin: 06/06/23 20:06 Dose: 30 ml Metformin HCl (Metformin Hcl Er 500 Mg Tab.Er.24h) 500 mg PO DAILY@0800 [facility] Last Admin: 06/09/23 09:25 Dose: 500 mg Nystatin (Nystatin Powder 15 Gm Bottle) 1 appl TOPICAL BID [facility]; Protocol Last Admin: 06/09/23 09:28 Dose: 1 appl Omeprazole (Omeprazole 20 Mg Capsule.Dr) 20 mg PO DAILY@0800 [facility] Last Admin: 06/09/23 09:26 Dose: 20 mg Polyethylene Glycol (Polyethylene Glycol 3350 17 Gm Powd.Pack) 17 gm PO DAILY PRN PRN Reason: 3 days no BM Risperidone (Risperidone 1 Mg Tablet) 1 mg PO BID [facility] Last Admin: 06/09/23 09:24 Dose: 1 mg Senna (Sennosides 8.6 Mg Tablet) 8.6 mg PO BEDTIME [facility] Last Admin: 06/08/23 21:32 Dose: 8.6 mg Sertraline HCl (Sertraline Hcl 100 Mg Tablet) 100 mg PO DAILY [facility] Last Admin: 06/09/23 09:26 Dose: 100 mg Spironolactone (Spironolactone 25 Mg Tablet) 25 mg PO DAILY [facility]; Protocol Last Admin: 06/09/23 09:25 Dose: 25 mg Torsemide (Torsemide 20 Mg Tablet) 60 mg PO MoWeFr [facility]; Protocol Last Admin: 06/08/23 08:34 Dose: 60 mg Trazodone HCl (Trazodone Hcl 50 Mg Tablet) 50 mg PO BEDTIME MRX1 PRN PRN Reason: Insomnia Last Admin: 05/25/23 20:24 Dose: 50 mg Zonisamide (Zonisamide 100 Mg Capsule) 200 mg PO TID [facility] Last Admin: 06/09/23 14:36 Dose: 200 mg Allergies Allergies Allergy/AdvReac Type Severity Reaction Status Date / Time ascorbic acid [Vitamin C] Allergy Unknown Unknown Verified 05/19/23 21:53 dexamethasone Allergy Unknown Verified 05/19/23 21:52 ibuprofen Allergy Unknown Verified 05/19/23 21:49 Penicillins Allergy Rash Verified 05/19/23 21:55 Assessment & Plan Assessment & Plan (1) Schizophrenia: Status: Acute Code(s): F20.9 - Schizophrenia, unspecified Plan The patient is an elderly female with a past history of schizophrenia who recently had medication changes and she was referred from her home to the emergency room due to exacerbation of delusions and paranoia. The patient had been admitted in the hospital a few weeks ago and sent to rehab for continuation of care and after being discharged home she was severely psychotic. She was brought to the emergency room and started on Haldol. 05/29 Patient with UA results positive for UTI, consulted with hospitalist and patient started on Ceftin. Patient a little hesitant to accept she had a UTI saying her urine is clear but agreed to start antibiotic. Denied AVH, denied SI. Grinding her teeth continually. Says she would like to know when she can discharge. -Ceftin 100mg bid for 7 days 05/30 Patient says that she is bored which is why she is doing coloring. Says she is really hoping to go home soon. Staff reports that she has been engaged, taking medications, good behavior; also they report she has been grinding her teeth much less which was encouraging. Yesterday Patient also started on nystatin for fungal infection on torso Plan 06/06 continue tx. Add p.r.n. for sore throat Reason for continued inpatient stay Substantial Risk for: inability to function, rapid decompensation and med/psych decompensation Time Spent With Patient Time: Total time managing care of this patient today _20__ minutes.
[2023-06-09 20:00] VITALS: BP 115/54; PULSE 89; RESP 16; TEMP 36.8; O2SAT 96
[2023-06-09] MEDS: Famotidine 20 MG TABLET PO (21:22)
[2023-06-09] MEDS: Sennosides 8.6 MG TABLET PO (21:23)
[2023-06-10] MEDS: Levothyroxine Sodium 75 MCG TABLET PO (06:08)
[2023-06-10 06:17] LABS: Glucose, Whole Blood 149 mg/dL (60-115)
--- NOTE | 2023-06-10 06:45 | PM.PSYDC ---
DS: Providers Provider Date of Service: 06/10/23 Date of admission: 05/19/23 21:03 Date of discharge: 06/10/23 Primary care physician: Trae Marcelino MD Consults: 05/19/23 21:52 Consult to Hospitalist Routine Comment: Consulting Provider: Hospitalist Reason For Exam: H&P, new admit DS: Diagnosis Discharge Diagnosis (1) Schizophrenia: Status: Acute DS: Medications Discharge Medications Home Medications: Home Medications ?Medication ?Instructions ?Recorded ?Confirmed haloperidol 10 mg tablet 10 mg PO BID 05/19/23 05/19/23 risperidone 2 mg tablet 2 mg PO BID 05/19/23 05/19/23 risperidone 3 mg tablet 3 mg PO BEDTIME 05/19/23 05/19/23 torsemide 20 mg tablet 60 mg PO 3XW 05/19/23 05/19/23 Previous Rx's ?Medication ?Instructions ?Recorded acetaminophen 325 mg tablet 975 mg (3 x 325 mg) PO TID 30 days 06/09/23 #120 tabs benzocaine 15 mg-menthol 3.6 mg 1 bryn mucous membrane Q2H PRN Sore 06/09/23 lozenges (Sore Throat (benzocaine Throat 30 days #30 ea with menthol)) benztropine 1 mg tablet 1 mg PO DAILY 30 days #30 tabs 06/09/23 clobazam 10 mg tablet 10 mg PO BID #60 tabs 06/09/23 famotidine 20 mg tablet 20 mg PO BEDTIME 30 days #30 tabs 06/09/23 haloperidol 5 mg tablet 10 mg (2 x 5 mg) PO DAILY 30 days 06/09/23 #60 tabs haloperidol decanoate 50 mg/mL 100 mg (2 mL) IM Q28D #1 mL 06/09/23 intramuscular solution hydroxyzine HCl 25 mg tablet 25 mg PO Q6H PRN Anxiety 30 days 06/09/23 #60 tabs levothyroxine 75 mcg tablet 75 mcg PO DAILY@0600 30 days #30 06/09/23 tabs lidocaine 4 % topical patch 1 patch transdermal DAILY #30 ea 06/09/23 (Lidocaine Pain Relief) metformin 500 mg tablet,extended 500 mg PO DAILY 30 days #30 tabs 06/09/23 release 24 hr nystatin 100,000 unit/gram topical 1 appl topical BID #15 grams 06/09/23 powder omeprazole 20 mg capsule,delayed 20 mg PO DAILY@0800 30 days #30 06/09/23 release caps polyethylene glycol 3350 17 gram 17 g PO DAILY PRN 3 days no BM #30 06/09/23 oral powder packet ea risperidone 1 mg tablet 1 mg PO BID 30 days #60 tabs 06/09/23 sertraline 100 mg tablet 100 mg PO DAILY 30 days #30 tabs 06/09/23 spironolactone 25 mg tablet 25 mg PO DAILY 30 days #30 tabs 06/09/23 torsemide 20 mg tablet 60 mg PO MoWeFr 30 days #39 tabs 06/09/23 trazodone 50 mg tablet 50 mg PO BEDTIME MRX1 PRN Insomnia 06/09/23 30 days #30 tabs zonisamide 100 mg capsule 200 mg (2 x 100 mg) PO TID 30 days 06/09/23 #180 caps Mental Status Exam Mental Status Exam Patient Appearance: Appropriate Patient Orientation: Person and Situation Level of Consciousness: Awake and Appropriate Patient Behavior: Guarded and Passive Mood Description: Withdrawn Affect Description: Blunted Patient Cognition Impaired: Yes Ability to Follow Directions: Good Speech Pattern: Clear Hallucinations: None Delusions: Ideas of Reference Thought Process: Distracted and Slowed Thinking Thought Content: positive for [place], positive for Poverty of Content and positive for Thought Blocking Judgement: Fair Data Data Completed and Pending Completed studies during hospitalization [Text1]: 06/03/23 06/04/23 06/05/23 08:01 06:19 06:16 Creatinine 0.92 Estim Creat Clear Calc 65.5 Estimated GFR > 60 POC Glucose 146 H 150 H COVID-19 ([facility]) COVID-19 Clin Com 06/05/23 06/06/23 06/07/23 06:31 05:50 06:15 Creatinine Estim Creat Clear Calc Estimated GFR POC Glucose 140 H 149 H 156 H COVID-19 ([facility]) COVID-19 Clin Com 06/08/23 06/08/23 06/09/23 05:28 15:10 06:17 Creatinine Estim Creat Clear Calc Estimated GFR POC Glucose 153 H 127 H COVID-19 ([facility]) Negative COVID-19 Clin Com See Note 06/10/23 06:03 Creatinine Estim Creat Clear Calc Estimated GFR POC Glucose 149 H COVID-19 ([facility]) COVID-19 Clin Com 05/29/23 Unknown Urine clean catch - Urine rapp top Urine Culture - Final Escherichia coli Imaging Diagnostic Imaging Impressions Upper GI/Barium Swallow X-Ray 05/26/23 10:31 IMPRESSION: 1. Premature spillage into the vallecula and pyriform sinuses with delayed swallow mechanism. Ballooning of the hypopharynx. 2. Trace laryngeal penetration with thick barium. 3. Limited evaluation of the esophagus, however, peristalsis is disorganized. 4. Limited evaluation of the stomach. There appear to be multiple areas of contrast pooling in the fundus and body the stomach that may represent small superficial aphthous ulcers. Recommend correlation EGD. This procedure was performed by Carrillo Morillo PA-C, and supervised by Dr. Huston DS: Summary Hospital Course Hospital Course: The patient is a 69-year-old female, with a past history of schizophrenia. She was transferred from a different hospital out of our catchment area after she decompensate with psychotic symptoms stating that she needed to have transplantation of several organs and she was medically sick. She was recently discharged from another facility for similar presentation. Please see the HPI of the admission note for further details. On admission, the patient was severely psychotic, internally preoccupied, responding to internal stimuli. We gather collateral information her provided it. The patient has a guardianship and a court order for treatment with antipsychotics in the community. She initially refused all antipsychotics But we follow the court order and she received IM Haldol as per court order. According to the court order, She could have long-acting injectables. Unfortunately, the co-payment of Invega Sustenna or Risperdal Consta was extremely expensive in the community. We decided to add Haldol Decanoate as per court order. The patient became compliant with medications and she Slowly improved with a brighter affect and participating in groups , The patient's condition improved, Residual psychotic symptoms. Since there were no safety concerns, discharge planning was discussed With a plan to continue outpatient treatment And eventually cross taper from Haldol p.o. to long-acting injectable. We decided to keep Risperdal 1 mg p.o. b.i.d.. Ancillary services were arranged. . Time spent discussing smoking cessation with patient: 3 to 10 minutes Status at Discharge Cognitive/behavioral status at discharge: Cognition at baseline Functional status at discharge: independent ambulation Overall status at discharge: patient is back to baseline Time Spent with Patient Time attestation: Total time managing care of this patient today __30__ minutes. Time spent: Less than 30 minutes Discharge Plan Discharge Anticipated Discharge Date/Time: 06/10/23 11:00 Patient Disposition: Home, Self-Care Discharge Diagnosis: Schizophrenia Chronic mental illness. Referrals: Trae Marcelino [Other] - 06/12/23 10:50 am (Your next appointment with your PCP is scheduled for 06/12/23 at 10:50am. ) [facility] [Other] - 06/11/23 ([facility] to provide [facility] visit on 06/11/23. You will receive medication teaching and managment, PT/OT services. ) Dr Rich [Other] - 07/14/23 2:50 pm (You next appointment with Dr Rich for psychiatry is scheduled for 07/14/23 at 2:50pm. ) Discharge Medications: New acetaminophen 325 mg Tablet 975 mg PO TID 30 Days Qty: 120 1RF benztropine 1 mg Tablet 1 mg PO DAILY 30 Days Qty: 30 1RF haloperidol 5 mg Tablet 10 mg PO DAILY 30 Days Qty: 60 0RF haloperidol decanoate 50 mg/mL Solution 100 mg IM Q28D Qty: 1 1RF hydroxyzine HCl 25 mg Tablet 25 mg PO Q6H PRN (Reason: Anxiety) 30 Days Qty: 60 1RF risperidone 1 mg Tablet 1 mg PO BID 30 Days Qty: 60 1RF torsemide 20 mg Tablet 60 mg PO MoWeFr 30 Days Qty: 39 0RF Protocol: Hold for SBP< HOLD for SBP < : 90 trazodone 50 mg Tablet 50 mg PO BEDTIME MRX1 PRN (Reason: Insomnia) 30 Days Qty: 30 0RF polyethylene glycol 3350 17 gram Powder In Packet 17 g PO DAILY PRN (Reason: 3 days no BM) Qty: 30 1RF zonisamide 100 mg Capsule 200 mg PO TID 30 Days Qty: 180 0RF famotidine 20 mg Tablet 20 mg PO BEDTIME 30 Days Qty: 30 1RF omeprazole 20 mg Capsule,Delayed Release(Dr/Ec) 20 mg PO DAILY@0800 30 Days Qty: 30 1RF Sore Throat (benzocaine-menth) 15-3.6 mg Lozenge 1 bryn mucous membrane Q2H PRN (Reason: Sore Throat) 30 Days Qty: 30 1RF lidocaine [Lidocaine Pain Relief] 4 % Adhesive Patch,Medicated 1 patch transdermal DAILY Qty: 30 0RF Protocol: Apply to: Apply to: back levothyroxine 75 mcg Tablet 75 mcg PO DAILY@0600 30 Days Qty: 30 0RF nystatin 100,000 unit/gram Powder 1 appl topical BID Qty: 15 0RF Protocol: Apply to: Apply to: under rené breasts Continued sertraline 100 mg tablet 100 mg PO DAILY 30 Days Qty: 30 1RF spironolactone 25 mg tablet 25 mg PO DAILY 30 Days Qty: 30 1RF metformin 500 mg tablet extended release 24 hr 500 mg PO DAILY 30 Days Qty: 30 0RF clobazam 10 mg tablet 10 mg PO BID Qty: 60 1RF Discontinued haloperidol 10 mg tablet 10 mg PO BID risperidone 2 mg tablet 2 mg PO BID torsemide 20 mg tablet 60 mg PO 3XW risperidone 3 mg tablet 3 mg PO BEDTIME Discharge Orders: Discharge Order (Routine); Ordered 06/10/23 Ordered By: Noman Smith Diet: Advance to usual diet Activity on Discharge: As tolerated Stand Alone Forms: Patient Portal Discharge page Print Language: [place] Care Plan Goals: Care plan goals achieved in this admission. Health Concerns: Continue treatment with PCP. Plan of Treatment: Continue medication management with outpatient providers. Assessment: Elderly female with a past history of schizophrenia who was admitted for exacerbation of psychotic symptoms. She was restarted on Haldol And we decided to start Haldol Decanoate as per court order. We decided to continue with Risperdal 1 mg p.o. b.i.d. At this moment there is no evidence of safety concerns . Ready to be discharged to the community.
[2023-06-10 07:55] VITALS: BP 126/60; PULSE 86; RESP 20; TEMP 36.6; O2SAT 97
[2023-06-10] MEDS: cloBAZam 10 MG TABLET PO (07:58)
[2023-06-10] MEDS: metFORMIN HCl ER 500 MG TAB.ER.24H PO (08:02)
[2023-06-10] MEDS: Acetaminophen 325 MG TABLET 975 MG PO (08:02)
[2023-06-10] MEDS: Benztropine Mesylate 1 MG TABLET PO (08:02)
[2023-06-10] MEDS: HaloperidoL 5 MG TABLET 10 MG PO (08:03)
[2023-06-10] MEDS: Nystatin Powder 15 GM BOTTLE 1 APPL TOPICAL (08:03)
[2023-06-10] MEDS: Sertraline HCL 100 MG TABLET PO (08:03)
[2023-06-10] MEDS: Omeprazole 20 MG CAPSULE.DR PO (08:04)
[2023-06-10] MEDS: risperiDONE 1 MG TABLET PO (08:04)
[2023-06-10] MEDS: Zonisamide 100 MG CAPSULE 200 MG PO (08:04)
[2023-06-10 08:06] VITALS: BP 126/60
[2023-06-10] MEDS: Spironolactone 25 MG TABLET PO (08:06)
[2023-06-10] MEDS: Lidocaine 4 % Patch ADH..PATCH 1 PATCH TRANSDERMA (08:12)
[2023-06-10 08:34] VITALS: BP 126/60
[2023-06-10] MEDS: Torsemide 20 MG TABLET 60 MG PO (08:34)
== END 2023-06-10 12:45 | disposition home or self-care (01) | DRG 885 ==
PROVIDERS: Physician Assistant; Physician Assistant Medical; Registered Nurse; Social Worker; Admitting Provider Psychiatry & Neurology Psychiatry; PCP Internal Medicine; Visit Provider Psychiatry & Neurology Psychiatry
DX: F20.9 Schizophrenia, unspecified (principal); I50.32 Chronic diastolic (congestive) heart failure; N39.0 Urinary tract infection, site not specified; E11.9 Type 2 diabetes mellitus without complications; R13.10 Dysphagia, unspecified; G40.909 Epilepsy, unspecified, not intractable, without status epilepticus; Z20.822 Contact with and (suspected) exposure to COVID-19; Z86.711 Personal history of pulmonary embolism; Z79.84 Long term (current) use of oral hypoglycemic drugs; Z79.890 Hormone replacement therapy; Z79.899 Other long term (current) drug therapy
CPT/HCPCS: 36415; 74240; 80053; 80061; 81001; 82565; 82947; 83690; 84439; 84443; 85025; 87086; 87088; 87186; 87635; 92526; 92610; J1630; J1631

== ENCOUNTER 2023-05-19 21:03 | Outpatient (BNV) | payer MEDICARE, SELFPAY | END 2023-05-26 10:13 | PROVIDERS: Admitting Provider Psychiatry & Neurology Psychiatry; Visit Provider Physician Assistant Surgical | DX: R13.10 Dysphagia, unspecified (principal); K21.9 Gastro-esophageal reflux disease without esophagitis | CPT/HCPCS: 74246 ==

== ENCOUNTER → 2023-05-19 21:03 | Outpatient (BNV) | payer MEDICARE, SELFPAY | PROVIDERS: Admitting Provider Psychiatry & Neurology Psychiatry; Visit Provider Physician Assistant | DX: Z02.2 Encounter for examination for admission to residential institution (principal) | CPT/HCPCS: 99429 ==

== ENCOUNTER → 2023-05-19 21:03 | Outpatient (BNV) | payer MEDICARE, SELFPAY | PROVIDERS: Admitting Provider Psychiatry & Neurology Psychiatry; Visit Provider Psychiatry & Neurology Psychiatry | DX: F20.0 Paranoid schizophrenia (principal) | CPT/HCPCS: 90792; 99231; 99232; 99238 ==